=== PATIENT | male | born 1950 | race Caucasian/White ===

== ENCOUNTER 2016-04-28 11:57 | Emergency (ER) | payer MEDICARE, MEDICAID ==
[~2016-04-28] VITALS: Ht 172.7 cm; Wt 113.4 kg
[~2016-04-28 11:57] MED LIST: ALLO300T2 PO; ALLP300T PO; CETI10TA17 PO; CYCL10TA9 PO; HCT25T PO; HYDR1TAB PO; HYDR25TA4 PO; LACT20SO2 PO; MELO-195 PO; MELO15TA39 PO; METO100T PO; METO50TA2 PO; PANT40TA3 PO; PNT40TEC PO; PROP20TA5 PO; SPIR50TA2 PO; TERA5CAP10 PO; TERA5CAP3 PO
[2016-04-28 13:30] LABS: BASOPHILS % (AUTO) 0 % (0-10); EOSINOPHILS % (AUTO) 1 % (0-10); LYMPHOCYTES # (AUTO) 1.7 X 10^3 (1.0-4.0); LYMPHOCYTES % (AUTO) 45 % (12-44); MEAN CORPUSCULAR HEMOGLOBIN 37 PG (25-34); MEAN CORPUSCULAR HGB CONC 35 G/DL (32-36); MEAN CORPUSCULAR VOLUME 107 FL (80-99); MEAN PLATELET VOLUME 11.3 FL (7.4-10.4); MONOCYTES # (AUTO) 0.4 X 10^3 (0.0-1.0); MONOCYTES % (AUTO) 9 % (0-12); NEUTROPHILS # (AUTO) 1.7 X 10^3 (1.8-7.8); NEUTROPHILS % (AUTO) 45 % (42-75); PLATELET COUNT 45 10^3/uL (130-400); RED BLOOD COUNT 2.77 10^6/uL (4.35-5.85); RED CELL DISTRIBUTION WIDTH 16.4 % (10.0-14.5); WHITE BLOOD COUNT 3.8 10^3/uL (4.3-11.0)
[2016-04-28] MEDS ORDERED: RIFA550T PO (13:37)
[2016-04-28 13:48] LABS: ALBUMIN 2.8 G/DL (3.2-4.5); BILIRUBIN,TOTAL 3.7 MG/DL (0.1-1.0); CALCIUM 8.8 MG/DL (8.5-10.1); CREATININE SERUM 1.96 MG/DL (0.60-1.30); POTASSIUM 5.8 MMOL/L (3.6-5.0); TOTAL PROTEIN 6.2 G/DL (6.4-8.2)
[2016-04-28 14:03] LABS: KETONES,URINE NEGATIVE (NEGATIVE); LEUKOCYTE ESTERASE ,URINE 1+ (NEGATIVE); NITRITE,URINE NEGATIVE (NEGATIVE); PH,URINE 5 (5-9); PROTEIN,URINE NEGATIVE (NEGATIVE); UROBILINOGEN,URINE 8 MG/DL (NORMAL)
[2016-04-28 14:12] LABS: BILIRUBIN,URINE 2+ (NEGATIVE); WBC,URINE 0-2 /HPF
--- NOTE | 2016-04-28 14:12 | ED GI ---
General Chief Complaint: Abdominal/GI Problems Stated Complaint: NOT COHERENT, DIZZY Nursing Triage Note: Pt. advises right upper quadrant abdominal pain x 3 days that has become progressively worse. Pt. advised he has been feeling very dizzy and has been experiencing some confusion. Sepsis Screen: No Definite Risk History of Present Illness Time Seen By Provider: 13:10 Initial Comments Evaluation for right upper quadrant pain and dizziness. Patient's sister reports that she has noticed him to be confused, at times. His PCP is Aidan Benavides APRN at [facility] and Dr. Arriaga has been managing his Hepatits, he has failed treatments thus far and they are considering sending him to . Dr. Hernandez previously managed his hepatitis, but she is no longer coming to [facility]. Timing/Duration: 3-4 Days Severity/Quality: Moderate Location: RUQ Radiation: No Radiation Activities at Onset: None Modifying Factors: Improves With Lying down, Improves With Resting Associated Symptoms: No Back Pain, No Chest Pain, Fatigue HeartburnNo Nausea/ Vomiting, Other (Diarrhea 5-8 times/day and abdominal distention with ascites.) Allergies and Home Medications Allergies Coded Allergies: No Known Drug Allergies (Unverified , 09/21/12) Home Medications Allopurinol 300 Mg Tablet 300 MG PO DAILY (Reported) Cetirizine HCl 10 Mg Tablet 10 MG PO DAILY (Reported) Hydrochlorothiazide 25 Mg Tablet 12.5 MG PO DAILY (Reported) TAKES 1/2 OF A (25 MG) TABLET Lactulose 20 Gm/30 Ml Solution #1 20 GM PO QID Prescribed by: ASHLEY CARVER on 09/17/15 1401 Meloxicam 15 Mg Tablet 15 MG PO HS (Reported) Metoprolol Tartrate 50 Mg Tablet 50 MG PO HS (Reported) Metoprolol Tartrate 50 Mg Tablet 25 MG PO DAILY (Reported) TAKES 1/2 OF A (25 MG) TABLET Pantoprazole Sodium 40 Mg Tablet.dr 40 MG PO DAILY (Reported) Propranolol HCl 20 Mg Tablet 20 MG PO BID (Reported) Rifaximin 550 Mg Tablet 550 MG PO BID (Reported) Spironolactone 50 Mg Tablet 100 MG PO DAILY (Reported) TAKES 2 (50 MG) TABLETS Terazosin HCl 5 Mg Capsule 5 MG PO DAILY (Reported) Review of Systems Constitutional: see HPI malaise weakness EENTM: No Symptoms Reported See HPI Respiratory: No Symptoms Reported See HPI Past Ovadgqf-Ddugww-Wofpgd Hx Patient Social History Recent Foreign Travel: No Contact w/Someone Who Travel: No Recent Infectious Disease Expo: No Recent Hopitalizations: No Seasonal Allergies Seasonal Allergies: Yes Surgeries HX Surgeries: Yes (hernia repair) Surgeries: Gallbladder Respiratory Hx Respiratory Disorders: No Cardiovascular Hx Cardiac Disorders: Yes Cardiac Disorders: Chronic Edema/Swelling, Hypertension Neurological Hx Neurological Disorders: No Genitourinary Hx Genitourinary Disorders: Yes Genitourinary Disorders: Benign Prostatic Hyperpl Gastrointestinal Hx Gastrointestinal Disorders: Yes (HEPATITIS C--NO TREATMENT) Gastrointestinal Disorders: Ulcer Musculoskeletal Hx Musculoskeletal Disorders: Yes (ARTHRITIS) Musculoskeletal Disorders: Arthritis, Gout Endocrine Hx Endocrine Disorders: No HEENT HX ENT Disorders: No Cancer Hx Cancer: No Psychosocial Hx Psychiatric Problems: No Integumentary HX Skin/Integumentary Disorder: No Blood Transfusions Hx Blood Disorders: No Physical Exam Vital Signs VS - Last 72 Hours, by Label 04/28/16 04/28/16 13:29 16:10 Temp 98.9 Pulse 55 60 Resp 16 14 B/P 110/63 Pulse Ox 98 98 O2 Delivery Room Air Room Air Capillary Refill : Less Than 3 Seconds General Appearance: WD/WN no apparent distress HEENT: PERRL/EOMI normal ENT inspection TMs normal pharynx normal Neck: non-tender full range of motion supple normal inspection Respiratory: chest non-tender normal breath sounds no respiratory distress no accessory muscle use Cardiovascular: normal peripheral pulses regular rate, rhythm no edema no murmur Peripheral Pulses: 2+ Dorsalis Pedis (R), 2+ Left Dors-Pedis (L), 2+ Radial Pulses (R), 2+ Radial Pulses (L) Gastrointestinal: normal bowel sounds soft distended (soft)No rebound, tenderness (RUQ) other Extremities: normal range of motion non-tender normal inspection no pedal edema no calf tenderness normal capillary refill Neurologic/Psychiatric: no motor/sensory deficits alert normal mood/affect oriented x 3 Skin: warm/dry jaundice (mild) Lymphatic: no adenopathy Progress/Results/Core Measures Results/Orders Lab Results Laboratory Tests Test 04/28/16 13:17 04/28/16 13:55 Range/Units Alanine Aminotransferase (ALT/SGPT) 91 H 0-55 U/L Albumin 2.8 L 3.2-4.5 G/DL Alkaline Phosphatase 141 H 40-136 U/L Ammonia 65 H 11-32 UMOL/L Anion Gap 3 L 5-14 MMOL/L Aspartate Amino Transf (AST/SGOT) 165 H 5-34 U/L BUN/Creatinine Ratio 21 Basophils # (Auto) 0.0 0.0-0.1 10^3/uL Basophils (%) (Auto) 0 0-10 % Blood Urea Nitrogen 41 H 7-18 MG/DL Calcium Level 8.8 8.5-10.1 MG/DL Carbon Dioxide Level 18 L 21-32 MMOL/L Chloride Level 119 H 98-107 MMOL/L Creatinine 1.96 H 0.60-1.30 MG/DL Eosinophils # (Auto) 0.0 0.0-0.3 10^3/uL Eosinophils (%) (Auto) 1 0-10 % Estimat Glomerular Filtration Rate 34 Glucose Level 137 H 70-105 MG/DL Hematocrit 30 L 40-54 % Hemoglobin 10.3 L 13.3-17.7 G/DL Lymphocytes # (Auto) 1.7 1.0-4.0 X 10^3 Lymphocytes (%) (Auto) 45 H 12-44 % Mean Corpuscular Hemoglobin 37 H 25-34 PG Mean Corpuscular Hemoglobin Concent 35 32-36 G/DL Mean Corpuscular Volume 107 H 80-99 FL Mean Platelet Volume 11.3 H 7.4-10.4 FL Monocytes # (Auto) 0.4 0.0-1.0 X 10^3 Monocytes (%) (Auto) 9 0-12 % Neutrophils # (Auto) 1.7 L 1.8-7.8 X 10^3 Neutrophils (%) (Auto) 45 42-75 % Platelet Count 45 L 130-400 10^3/uL Potassium Level 5.8 H 3.6-5.0 MMOL/L Red Blood Count 2.77 L 4.35-5.85 10^6/uL Red Cell Distribution Width 16.4 H 10.0-14.5 % Sodium Level 140 135-145 MMOL/L Total Bilirubin 3.7 H 0.1-1.0 MG/DL Total Protein 6.2 L 6.4-8.2 G/DL White Blood Count 3.8 L 4.3-11.0 10^3/uL Urine Bacteria TRACE /HPF Urine Bilirubin 2+ H NEGATIVE Urine Casts PRESENT /LPF Urine Clarity CLEAR Urine Color YELLOW Urine Crystals NONE /LPF Urine Culture Indicated NO Urine Glucose (UA) NEGATIVE NEGATIVE Urine Hyaline Casts 10-25 H /LPF Urine Ketones NEGATIVE NEGATIVE Urine Leukocyte Esterase 1+ H NEGATIVE Urine Mucus SMALL H /LPF Urine Nitrite NEGATIVE NEGATIVE Urine Protein NEGATIVE NEGATIVE Urine RBC NONE /HPF Urine RBC (Auto) NEGATIVE NEGATIVE Urine Specific [place] 1.020 1.016-1.022 Urine Squamous Epithelial Cells 2-5 /HPF Urine Urobilinogen 8 H NORMAL MG/DL Urine WBC 0-2 /HPF Urine pH 5 5-9 My Orders Orders-ALFRED CANTOR [employer] Ammonia (04/28/16 13:20) Cbc With Automated Diff (04/28/16 13:20) Comprehensive Metabolic Panel (04/28/16 13:20) Ua Culture If Indicated (04/28/16 13:20) Ct Abdomen/Pelvis Wo (04/28/16 14:19) Saline Lock/Iv-Start (04/28/16 14:19) Ns Iv 500 Ml (Sodium Chloride 0.9%) (04/28/16 14:19) Ns Iv 1000 Ml (Sodium Chloride 0.9%) (04/28/16 14:16) Sodium Polystyrene (Bulk Btl) (Kayexalat (04/28/16 15:45) Medications Given in ED Current Medications Medications Dose Ordered Sig/Lucila Route Start Time Stop Time Status Last Admin Dose Admin Sodium Polystyrene Sulfonate 15 gm ONCE ONCE PO 04/28/16 15:45 04/28/16 15:52 DC 04/28/16 16:07 15 GM Sodium Chloride 500 ml @ 0 mls/hr Q0M ONCE IV 04/28/16 14:19 04/28/16 14:23 DC 04/28/16 14:25 0 MLS/HR Vital Signs/I&O Vital Sign - Last 12Hours 04/28/16 04/28/16 13:29 16:10 Temp 98.9 Pulse 55 60 Resp 16 14 B/P 110/63 Pulse Ox 98 98 O2 Delivery Room Air Room Air Blood Pressure Mean: 79 Progress Note : Progress Note 1500 Dr. Arri[address] spoke with Dr. Melchor by phone about patient, updated us on his past tx for hepatitis and their desire to refer him to transfer him to [facility] if he needs admission. [address], Labs and assessment with Dr. Melchor, agreed with plan of care at this time. Talked to Patient and sister in depth, recommended referral to [facility] for further treatment, offered to arrange for transfer today. His sister and other family are not able to go with him today and they have concerns with him going alone. They would prefer to follow up with Aidan Benavides APRN tomorrow and have referral made for later this week. They understand his status is critical, but this is probably his baseline for some time. If his conditions worsens, they will return to ER. 1550 Spoke with [facility] (Alivia Wolf RN and Aidan Benavides APRN) to inform patient would like referral to on outpatient basis. The patient has appointment tomorrow morning, all labs from today and copy of CT on CD, given to patient. ECG EKG : EKG Time: 13:41 Rate: 55 Rhythm: Normal Sinus (With borderline left axis deviation) Intervals: Normal, MS (196), QRS (86), QT (456) Intervals P axis 7; QRS -27; T 50 ECG Comparisson: No Previous ECG Available ECG Impression: Normal Comment Reviewed with Dr. Melchor, agreed with interpretation. Diagnostic Imaging Diagonstic Imaging: CT Plain Films/CT/US/NM/MRI: abdomen, pelvis Comments NAME: CARMITA APONTE [facility] REC#: [id number] PT STATUS: REG ER : 1950 PHYSICIAN: ALFRED CANTOR ADMIT DATE: 04/28/16/ER Draft Date of Exam:04/28/16 CT ABDOMEN/PELVIS WO PROCEDURE: CT abdomen and pelvis without contrast. TECHNIQUE: Multiple contiguous axial images were obtained through the abdomen and pelvis without the use of intravenous contrast. INDICATION: Abdominal pain. Hepatitis C. FINDINGS: The lung bases appear clear. The liver demonstrates enlargement of the left hepatic lobe and caudate lobe with subtle nodularity of its surface compatible with cirrhosis. The spleen is 16.2 x 7.3 x 14.7 cm, mildly enlarged. The adrenals and the pancreas appear unremarkable. There is fatty stranding in the retroperitoneum and in the abdominal fat around the gastrohepatic ligament and adjacent to the stomach. The stomach has associated gastric wall thickening. Also fatty stranding extending around the ye hepatis is seen. Etiology is uncertain and could be related to hepatitis and cirrhosis. The kidneys have no hydronephrosis. There are no kidney stones. There is a calcification in the left side of the pelvis appears to be related to a phlebolith with no definite ureteric stone or bladder stone seen. There is diverticulosis with no evidence of diverticulitis. No significant free fluid or fluid collection in the abdomen or pelvis seen. The abdominal aorta is normal in caliber. There is suggestion of prior ventral hernia repair with a mesh above the level of the umbilicus. There is a small umbilical hernia with a portion of the adjacent nonobstructed small bowel loops projecting into the hernia. The osseous structures appear grossly unremarkable with some degenerative changes in the lower thoracic spine seen. IMPRESSION: 1. Liver findings are suggestive of cirrhosis. There is also mild splenomegaly. No ascites. 2. There is nonspecific fatty stranding seen in the upper abdomen as described. This is perhaps secondary to tissue edema from liver disease and portal hypertension or may relate to an inflammatory process. Correlate clinically. Dictated on workstation # [id number] Dict: 04/28/16 1441 Trans: 04/28/16 1459 [facility] [id number] Interpreted by: ADRIANO WANG MD Electronically signed by: Reviewed: Reviewed by Me Departure Impression Impression: Primary Impression: Cirrhosis of liver Qualified Code: K70.31 - Alcoholic cirrhosis of liver with ascites Additional Impression: Hepatitis C Qualified Code: B18.2 - Chronic viral hepatitis C Disposition: 01 HOME, SELF-CARE Condition: Stable Departure-Patient Inst. Decision time for Depature: 15:30 Referrals: AIDAN BENAVIDES (PCP/Family) Primary Care Physician Patient Instructions: Cirrhosis (DC), Hepatitis C (DC) Add. Discharge Instructions: All discharge instructions reviewed with patient and/or family. Voiced understanding. Follow Up Aidan Benavides APRN 04/29/16 at 8:40 am, please go to appointment 10 min early. Return to ER for worsening symptoms, fever, difficulty breathing or concerns. Hold Spironolactone until follow up. Copy Copies To 1: NACHO ARRIAGA MD, AMY ARNP Apr 28, 2016 14:12
[2016-04-28] MEDS ORDERED: NS IV 1000 ML 0 ML ONE (14:16)
[2016-04-28] MEDS ORDERED: NS IV 500 ML 500 ML IV ONE (14:19)
--- NOTE | 2016-04-28 15:00 | Diagnostic Imaging Report ---
PROCEDURE: CT abdomen and pelvis without contrast. TECHNIQUE: Multiple contiguous axial images were obtained through the abdomen and pelvis without the use of intravenous contrast. INDICATION: Abdominal pain. Hepatitis C. FINDINGS: The lung bases appear clear. The liver demonstrates enlargement of the left hepatic lobe and caudate lobe with subtle nodularity of its surface compatible with cirrhosis. The spleen is 16.2 x 7.3 x 14.7 cm, mildly enlarged. The adrenals and the pancreas appear unremarkable. There is fatty stranding in the retroperitoneum and in the abdominal fat around the gastrohepatic ligament and adjacent to the stomach. The stomach has associated gastric wall thickening. Also fatty stranding extending around the ye hepatis is seen. Etiology is uncertain and could be related to hepatitis and cirrhosis. The kidneys have no hydronephrosis. There are no kidney stones. There is a calcification in the left side of the pelvis appears to be related to a phlebolith with no definite ureteric stone or bladder stone seen. There is diverticulosis with no evidence of diverticulitis. No significant free fluid or fluid collection in the abdomen or pelvis seen. The abdominal aorta is normal in caliber. There is suggestion of prior ventral hernia repair with a mesh above the level of the umbilicus. There is a small umbilical hernia with a portion of the adjacent nonobstructed small bowel loops projecting into the hernia. The osseous structures appear grossly unremarkable with some degenerative changes in the lower thoracic spine seen. IMPRESSION: 1. Liver findings are suggestive of cirrhosis. There is also mild splenomegaly. No ascites. 2. There is nonspecific fatty stranding seen in the upper abdomen as described. This is perhaps secondary to tissue edema from liver disease and portal hypertension or may relate to an inflammatory process. Correlate clinically. Dictated by: Dictated on workstation # [id number]
[2016-04-28] MEDS ORDERED: SOD POLYSTYRENE 30 GM/120 ML (KAYEXALATE) BULK BOTTLE PO ONE (15:45)
[2016-04-28 16:10] VITALS: BP 145/76
== END 2016-04-28 16:15 | disposition home or self-care (01) ==
LOC: EDUNIT# 11:57 → ER 11:59
DX: K74.60 Unspecified cirrhosis of liver (principal); B18.2 Chronic viral hepatitis C; N40.0 Benign prostatic hyperplasia without lower urinary tract symptoms; R41.0 Disorientation, unspecified; R42 Dizziness and giddiness; I10 Essential (primary) hypertension; Z79.899 Other long term (current) drug therapy
CPT/HCPCS: 36415; 74176; 80053; 81000; 82140; 85025; 93005; 96360

== ENCOUNTER 2016-04-30 12:27 | Inpatient (IN) | payer MEDICARE, MEDICAID ==
[~2016-04-30] VITALS: Ht 172.7 cm; Wt 120.7 kg
[~2016-04-30 12:27] MED LIST changes: +RIFA550T PO
[2016-04-30 12:51] LABS: BASOPHILS % (AUTO) 0 % (0-10); EOSINOPHILS % (AUTO) 1 % (0-10); LYMPHOCYTES # (AUTO) 1.3 X 10^3 (1.0-4.0); LYMPHOCYTES % (AUTO) 32 % (12-44); MEAN CORPUSCULAR HEMOGLOBIN 37 PG (25-34); MEAN CORPUSCULAR HGB CONC 34 G/DL (32-36); MEAN CORPUSCULAR VOLUME 107 FL (80-99); MEAN PLATELET VOLUME 11.5 FL (7.4-10.4); MONOCYTES # (AUTO) 0.3 X 10^3 (0.0-1.0); MONOCYTES % (AUTO) 8 % (0-12); NEUTROPHILS # (AUTO) 2.5 X 10^3 (1.8-7.8); NEUTROPHILS % (AUTO) 60 % (42-75); PLATELET COUNT 41 10^3/uL (130-400); RED BLOOD COUNT 2.87 10^6/uL (4.35-5.85); RED CELL DISTRIBUTION WIDTH 16.1 % (10.0-14.5); WHITE BLOOD COUNT 4.2 10^3/uL (4.3-11.0)
--- NOTE | 2016-04-30 12:53 | ED GI ---
General Chief Complaint: Abdominal/GI Problems Stated Complaint: ABD PAIN Nursing Triage Note: PT TO ED 7 PER EMS FOR C/O ABD PAIN. PT SEEN IN THIS ED X3 DAYS AGO FOR SAME C/O BUT DENIES IMPROVEMENT Sepsis Screen: No Definite Risk (PREMA LEMOS MD) History of Present Illness Time Seen By Provider: 12:48 Initial Comments The patient is a 65-year-old white male who was here on 04/28. He returns today with the same complaint which is to say abdominal pain, general lack of vigor and I ain't gotten no better. The patient is known to have chronic liver disease. He has not very sophisticated about his knowledge of the subject. On 04/28 and his sister reported that his thinking was rather foggy. He is apparently been seen previously by Dr. Emani Hernandez in the [facility]. He takes lactulose and spironolactone. He reports that there is always some swelling. He also reports that he has poor coordination and his hands shake. Severity/Quality: Moderate Location: Generalized Abdomen Radiation: No Radiation Associated Symptoms: Fatigue Heartburn Swelling/Mass in Abdomen (PREMA LEMOS MD) Initial Comments The sister reports that patient did not take his medicines this morning because she could not get him to comprehend what they were talking about. That has cleared somewhat today. Patient admits that he did not take his medicines because he could not think well. Denies nausea or vomiting. Reports understanding of the importance of his meds. Timing/Duration: 4-6 Hours Associated Symptoms: No Chest Pain, No Fever/Chills, No Nausea/Vomiting, Shortness of Air Weakness (LUIS HEATH MD) Allergies and Home Medications Allergies Coded Allergies: No Known Drug Allergies (Unverified , 09/21/12) Home Medications Allopurinol 300 Mg Tablet 300 MG PO DAILY (Reported) Cetirizine HCl 10 Mg Tablet 10 MG PO DAILY (Reported) Hydrochlorothiazide 25 Mg Tablet 12.5 MG PO DAILY (Reported) TAKES 1/2 OF A (25 MG) TABLET Lactulose 20 Gm/30 Ml Solution #1 20 GM PO QID Prescribed by: ASHLEY CARVER on 09/17/15 1401 Meloxicam 15 Mg Tablet 15 MG PO HS (Reported) Metoprolol Tartrate 50 Mg Tablet 50 MG PO HS (Reported) Metoprolol Tartrate 50 Mg Tablet 25 MG PO DAILY (Reported) TAKES 1/2 OF A (25 MG) TABLET Pantoprazole Sodium 40 Mg Tablet.dr 40 MG PO DAILY (Reported) Propranolol HCl 20 Mg Tablet 20 MG PO BID (Reported) Rifaximin 550 Mg Tablet 550 MG PO BID (Reported) Spironolactone 50 Mg Tablet 100 MG PO DAILY (Reported) TAKES 2 (50 MG) TABLETS Terazosin HCl 5 Mg Capsule 5 MG PO DAILY (Reported) Review of Systems Constitutional: see HPI EENTM: No Symptoms Reported Respiratory: SOA With Exertion Cardiovascular: No Symptoms Reported Gastrointestinal: Abdomen Distended Abdominal Pain Nausea Genitourinary: No Symptoms Reported Musculoskeletal: muscle weakness Skin: no symptoms reported Psychiatric/Neurological: Depressed Tremors Weakness Endocrine: No Symptoms Reported Hematologic/Lymphatic: Easy Bruising (PREMA LEMOS MD) All Other Systems Reviewed Negative Unless Noted: Yes (LUIS HEATH MD) Past Inbubkf-Lxvylz-Baguqi Hx Patient Social History Alcohol Use: Denies Use Recreational Drug Use: Yes (CHEWS TOBACCO) Smoking Status: Never a Smoker Recent Foreign Travel: No Contact w/Someone Who Travel: No Recent Infectious Disease Expo: No Recent Hopitalizations: No Physical Abuse Screen: No Sexual Abuse: No (PREMA LEMOS MD) Seasonal Allergies Seasonal Allergies: Yes (PREMA LEMOS MD) Surgeries HX Surgeries: Yes (hernia repair) Surgeries: Gallbladder (PREMA LEMOS MD) Respiratory Hx Respiratory Disorders: No (PREMA LEMOS MD) Cardiovascular Hx Cardiac Disorders: Yes Cardiac Disorders: Chronic Edema/Swelling, Hypertension (PREMA LEMOS MD) Neurological Hx Neurological Disorders: No (PREMA LEMOS MD) Genitourinary Hx Genitourinary Disorders: Yes Genitourinary Disorders: Benign Prostatic Hyperpl (PREMA LEMOS MD) Gastrointestinal Hx Gastrointestinal Disorders: Yes (HEPATITIS C--NO TREATMENT) Gastrointestinal Disorders: Ulcer (PREMA LEMOS MD) Musculoskeletal Hx Musculoskeletal Disorders: Yes (ARTHRITIS) Musculoskeletal Disorders: Arthritis, Gout (PREMA LEMOS MD) Endocrine Hx Endocrine Disorders: No (PREMA LEMOS MD) HEENT HX ENT Disorders: No (PREMA LEMOS MD) Cancer Hx Cancer: No (PREMA LEMOS MD) Psychosocial Hx Psychiatric Problems: No (PREMA LEMOS MD) Integumentary HX Skin/Integumentary Disorder: No (PREMA LEMOS MD) Blood Transfusions Hx Blood Disorders: No (PREMA LEMOS MD) Reviewed Nursing Assessment Reviewed/Agree w Nursing PMH: Yes (LUIS HEATH MD) Family Medical History Significant Family History: No Pertinent Family Hx (LUIS HEATH MD) Physical Exam Vital Signs VS - Last 72 Hours, by Label 04/30/16 12:28 Temp 96.9 Pulse 77 Resp 16 B/P 174/90 Pulse Ox 99 O2 Delivery Room Air (LUIS HEATH MD) Vital Signs Capillary Refill : Less Than 3 Seconds (PREMA LEMOS MD) General Appearance: mild distress HEENT: normal ENT inspection Neck: full range of motion Respiratory: chest non-tender lungs clear normal breath sounds no respiratory distress no accessory muscle use Cardiovascular: normal peripheral pulses regular rate, rhythm no edema no gallop no JVD no murmur Gastrointestinal: tenderness Back: normal inspection Neurologic/Psychiatric: airbrush painter II-XII nml as tested no motor/sensory deficits alert normal mood/affect oriented x 3 Skin: normal color warm/dry Lymphatic: no adenopathy (PREMA LEMOS MD) General Appearance: obese Peripheral Pulses: 2+ Dorsalis Pedis (R), 2+ Left Dors-Pedis (L), 2+ Radial Pulses (R), 2+ Radial Pulses (L) Gastrointestinal: soft Extremities: non-tender normal inspection Back: no CVA tenderness no vertebral tenderness (LUIS HEATH MD) Progress/Results/Core Measures Results/Orders Lab Results Laboratory Tests Test 04/30/16 12:45 Range/Units Alanine Aminotransferase (ALT/SGPT) 93 H 0-55 U/L Albumin 2.8 L 3.2-4.5 G/DL Alkaline Phosphatase 151 H 40-136 U/L Ammonia 73 H 11-32 UMOL/L Anion Gap 6 5-14 MMOL/L Aspartate Amino Transf (AST/SGOT) 170 H 5-34 U/L BUN/Creatinine Ratio 20 Basophils # (Auto) 0.0 0.0-0.1 10^3/uL Basophils (%) (Auto) 0 0-10 % Blood Urea Nitrogen 36 H 7-18 MG/DL Calcium Level 8.7 8.5-10.1 MG/DL Carbon Dioxide Level 17 L 21-32 MMOL/L Chloride Level 117 H 98-107 MMOL/L Creatinine 1.79 H 0.60-1.30 MG/DL Eosinophils # (Auto) 0.0 0.0-0.3 10^3/uL Eosinophils (%) (Auto) 1 0-10 % Estimat Glomerular Filtration Rate 38 Glucose Level 134 H 70-105 MG/DL Hematocrit 31 L 40-54 % Hemoglobin 10.5 L 13.3-17.7 G/DL Lymphocytes # (Auto) 1.3 1.0-4.0 X 10^3 Lymphocytes (%) (Auto) 32 12-44 % Mean Corpuscular Hemoglobin 37 H 25-34 PG Mean Corpuscular Hemoglobin Concent 34 32-36 G/DL Mean Corpuscular Volume 107 H 80-99 FL Mean Platelet Volume 11.5 H 7.4-10.4 FL Monocytes # (Auto) 0.3 0.0-1.0 X 10^3 Monocytes (%) (Auto) 8 0-12 % Neutrophils # (Auto) 2.5 1.8-7.8 X 10^3 Neutrophils (%) (Auto) 60 42-75 % Platelet Count 41 L 130-400 10^3/uL Potassium Level 6.4 H 3.6-5.0 MMOL/L Red Blood Count 2.87 L 4.35-5.85 10^6/uL Red Cell Distribution Width 16.1 H 10.0-14.5 % Sodium Level 140 135-145 MMOL/L Total Bilirubin 3.8 H 0.1-1.0 MG/DL Total Protein 6.3 L 6.4-8.2 G/DL White Blood Count 4.2 L 4.3-11.0 10^3/uL (LUIS HEATH MD) My Orders Orders-LUIS HEATH MD Ekg Tracing (04/30/16 13:44) Furosemide Injection (Lasix Injection) (04/30/16 13:44) Sodium Polystyrene Sulfonate (Kayexalate (04/30/16 13:45) (LUIS HEATH MD) Vital Signs/I&O Vital Sign - Last 12Hours 04/30/16 12:28 Temp 96.9 Pulse 77 Resp 16 B/P 174/90 Pulse Ox 99 O2 Delivery Room Air (LUIS HEATH MD) Blood Pressure Mean: 118 Progress Note : Progress Note I assumed care of the patient from Dr. LEMOS at 1330: Labs reviewed. Patient reexamined. Patient noted to be hyperkalemic. EKG ordered. Lasix 40 mg IV and Kayexalate 15 g by mouth ordered. 1345: I did discuss the case with Dr. Thurston. She accepts patient for admission, inpatient status. Patient and family agree with plan. 1355: Dr. Thurston in ER evaluating patient. (LUIS HEATH MD) ECG Initial ECG Impression Date: Apr 30, 2016 Initial ECG Impression Time: 13:43 Initial ECG Rate: 72 Initial ECG Rhythm: Normal Sinus Comment Sinus rhythm with left axis deviation. No evidence of ST elevation PR. Similar to previous of 09/27/2015. Interpreted by me. (LUIS HEATH MD) Departure Communication Time/Spoke to Admitting Phy: 13:50 (LUIS HEATH MD) Impression Impression: Primary Impression: Hyperkalemia Additional Impressions: Hepatic encephalopathy Hepatitis C Qualified Code: B18.2 - Chronic viral hepatitis C Disposition: ADMITTED INPATIENT Condition: Stable Decision to Admit Reason: Admit from ER (General) Decision to Admit/Date: Apr 30, 2016 Time/Decision to Admit Time: 13:50 (LUIS HEATH MD) Departure-Patient Inst. Referrals: NO,LOCAL PHYSICIAN (PCP/Family) Primary Care Physician PREMA LEMOS MD Apr 30, 2016 12:53 LUIS HEATH MD Apr 30, 2016 13:59
[2016-04-30 13:08] LABS: ALBUMIN 2.8 G/DL (3.2-4.5); CALCIUM 8.7 MG/DL (8.5-10.1); CREATININE SERUM 1.79 MG/DL (0.60-1.30); POTASSIUM 6.4 MMOL/L (3.6-5.0); TOTAL PROTEIN 6.3 G/DL (6.4-8.2)
[2016-04-30 13:15] LABS: BILIRUBIN,TOTAL 3.8 MG/DL (0.1-1.0)
[2016-04-30] MEDS ORDERED: FUROSEMIDE 40 MG/4 ML INJ (LASIX) IV STA (13:44)
[2016-04-30] MEDS ORDERED: SOD POLYSTERENE 15 GM/60 ML (KAYEXALATE) UNIT DOSE PO ONE (13:45)
--- NOTE | 2016-04-30 15:30 | History & Physicial (CHS) ---
HPI History of Present Illness: 65 yo male with history of cirrhosis related to history of alcohol use and hepatitis C presents to ER for second time this week due to weakness, not feeling well. His sister is present and provides much of the history. She sets up his medications weekly and reports he typically takes all of his prescribed medications, but this morning he did not take his medications and in spite of multiple reminders and urging he was so lethargic she could not get him to take his medication. He has been treated for hepatitis C without success and has been referred to Hepatology in the last few days and is waiting to hear back about an appointment. He denies fever, abdominal pain. He does admit diarrhea but states he essentially always has with his lactulose. He denies ascites in the past. Source: patient, family (sister Deya) Date seen by provider: Apr 30, 2016 Time seen by provider: 14:00 Attending Physician Heather Thurston MD [facility] Date of Admission Apr 30, 2016 at 14:00 Home Medications Home Medications Reviewed patient Home Medication Reconciliation Form Allergies Coded Allergies: No Known Drug Allergies (Unverified , 04/30/16) [id number] Hx Patient Social History Alcohol Use: Past History Recreational Drug Use: Yes (reported last use 1970s) Smoking Status: Never a Smoker (chews tobacco) Recent Foreign Travel: No Contact w/other who traveled: No Recent Hopitalizations: No Recent Infectious Disease Expo: No Physical Abuse Screen: No Sexual Abuse: No Past Medical History PMHx: DMII Alcoholic cirrhosis Chronic hepatitis C Hypertension GI bleed (gastric ulcer) PSurgHx: Hernia repair Gastric ulcer repair Cholecystetomy Appendectomy Family Medical History Significant Family History: No Pertinent Family Hx Review of Systems ([facility]C) Constitutional: No fever Respiratory: No cough, No short of breath Cardiovascular: No chest pain Gastrointestinal: No abdominal pain, No constipation, diarrheaNo nausea, No vomiting Genitourinary: decreased output Skin: No rash Psychiatric/Neurological: See HPI Reviewed Test Results Reviewed Test Results Lab Laboratory Tests Test 04/30/16 12:45 Range/Units Alanine Aminotransferase (ALT/SGPT) 93 H 0-55 U/L Albumin 2.8 L 3.2-4.5 G/DL Alkaline Phosphatase 151 H 40-136 U/L Ammonia 73 H 11-32 UMOL/L Anion Gap 6 5-14 MMOL/L Aspartate Amino Transf (AST/SGOT) 170 H 5-34 U/L BUN/Creatinine Ratio 20 Basophils # (Auto) 0.0 0.0-0.1 10^3/uL Basophils (%) (Auto) 0 0-10 % Blood Urea Nitrogen 36 H 7-18 MG/DL Calcium Level 8.7 8.5-10.1 MG/DL Carbon Dioxide Level 17 L 21-32 MMOL/L Chloride Level 117 H 98-107 MMOL/L Creatinine 1.79 H 0.60-1.30 MG/DL Eosinophils # (Auto) 0.0 0.0-0.3 10^3/uL Eosinophils (%) (Auto) 1 0-10 % Estimat Glomerular Filtration Rate 38 Glucose Level 134 H 70-105 MG/DL Hematocrit 31 L 40-54 % Hemoglobin 10.5 L 13.3-17.7 G/DL Lymphocytes # (Auto) 1.3 1.0-4.0 X 10^3 Lymphocytes (%) (Auto) 32 12-44 % Mean Corpuscular Hemoglobin 37 H 25-34 PG Mean Corpuscular Hemoglobin Concent 34 32-36 G/DL Mean Corpuscular Volume 107 H 80-99 FL Mean Platelet Volume 11.5 H 7.4-10.4 FL Monocytes # (Auto) 0.3 0.0-1.0 X 10^3 Monocytes (%) (Auto) 8 0-12 % Neutrophils # (Auto) 2.5 1.8-7.8 X 10^3 Neutrophils (%) (Auto) 60 42-75 % Platelet Count 41 L 130-400 10^3/uL Potassium Level 6.4 H 3.6-5.0 MMOL/L Red Blood Count 2.87 L 4.35-5.85 10^6/uL Red Cell Distribution Width 16.1 H 10.0-14.5 % Sodium Level 140 135-145 MMOL/L Total Bilirubin 3.8 H 0.1-1.0 MG/DL Total Protein 6.3 L 6.4-8.2 G/DL White Blood Count 4.2 L 4.3-11.0 10^3/uL Physical Exam-([facility]C) Physical Exam Vital Signs VS - Last 72 Hours, by Label 04/30/16 12:28 Temp 96.9 Pulse 77 Resp 16 B/P 174/90 Pulse Ox 99 O2 Delivery Room Air Capillary Refill : Less Than 3 Seconds General Appearance: no apparent distress Respiratory: lungs clear normal breath sounds Cardiovascular: regular rate, rhythm no murmur Gastrointestinal: normal bowel soundsNo guarding, No rebound, tenderness ( diffuse mild) other (distended, possible fluid wave difficult to determine due to body habitus) Neurologic/Psychiatric: alert other (mild to moderate asterixis) Skin: warm/dry Assessment/Plan Assessment/Plan Admission Dx 1. Hepatic encephalopathy 2. Hyperkalemia 3. Chronic renal insufficiency 4. Alcoholic cirrhosis/chronic hepatitis C 5. Pancytopenia 6. HTN 7. DMII 8. Gout Plan 1. Hepatic encephalopathy -Will monitor with kayexalate given for hyperkalemia, resume lactulose when kayexalate complete, resume home rifaximin -US to check for ascites (CT abdomen on 04/28 with no ascites, but exam with possible ascites) and if present paracentesis to rule out SBP 2. Hyperkalemia- kayexalate, lasix; no EKG changes, monitor on telemetry -Likely due to spironolactone use and chronic kidney insufficiency with poor fluid intake recently 3. Chronic renal insufficiency- decreased GFR since at least 09/2015 -Hold home meloxicam -Renally dose medications 4. Alcoholic cirrhosis/chronic hepatitis C- with worsening encephalopathy -Resume home propranolol -Has been referred to Hepatology, not yet scheduled 5. Pancytopenia- likely secondary to above, monitor 6. HTN- resume home medications 7. DMII- diet controlled -ADA diet 8. Gout- hold allopurinol as it can be associated with pancytopenia and elevated liver testing DVT ppx- SCDs, no enoxaparin due to low platelets Diagnosis/Problems: Copy Copies To 1: [facility]ERVE Cade BETHANY N MD Apr 30, 2016 15:30
[2016-04-30 15:35] VITALS: BP 146/74
[2016-04-30] MEDS ORDERED: LACT10SO PO (15:44)
[2016-04-30] MEDS ORDERED: SPIR100T2 PO (15:44)
[2016-04-30] MEDS ORDERED: ONDANSETRON 4 MG/2 ML (SDV) Z0FRAN IV PRN (15:45)
[2016-04-30] MEDS ORDERED: CATHETER FLUSH 10 ML SYR IV PRN (15:45)
--- NOTE | 2016-04-30 16:08 | Diagnostic Imaging Report ---
PROCEDURE: US Abdomen, limited. TECHNIQUE: Multiple realtime grayscale images were obtained over the abdomen in various projections. INDICATION: Check for ascites. FINDINGS: No significant fluid is seen in the four quadrants. IMPRESSION: No evidence of ascites. Dictated by: Dictated on workstation # [id number]
[2016-04-30] MEDS: NS IV 1000 ML 1,000 ML IV SCH (16:20)
[2016-04-30] MEDS ORDERED: RT-ALBUTEROL SULF 2.5 MG/3 ML PRE-MIX VIAL INH PRN (16:30)
[2016-04-30 17:45] LABS: CALCIUM 8.6 MG/DL (8.5-10.1); CREATININE SERUM 1.87 MG/DL (0.60-1.30)
[2016-04-30] MEDS: SOD POLYSTERENE 15 GM/60 ML (KAYEXALATE) UNIT DOSE PO SCH (18:04)
[2016-04-30 19:50] VITALS: BP 126/73
[2016-04-30] MEDS: meTOprolol TARTRATE 50 MG (LOPRESSOR) TAB PO SCH (20:19)
[2016-04-30] MEDS: RIFAXIMIN 550 MG TABLET (XIFAXAN) PO SCH (20:19)
[2016-04-30] MEDS: PROPRANOLOL 20 MG (INDERAL) TABLET PO SCH (20:19)
[2016-05-01] VITALS: BP 130/83
[2016-05-01] MEDS: SOD POLYSTERENE 15 GM/60 ML (KAYEXALATE) UNIT DOSE PO SCH ×2 (00:02→05:21)
[2016-05-01 04:00] VITALS: BP 117/71
[2016-05-01] MEDS: PANTOPRAZOLE 40 MG (PROTONIX) TAB PO SCH (05:23)
[2016-05-01 05:44] LABS: BASOPHILS % (AUTO) 0 % (0-10); EOSINOPHILS % (AUTO) 1 % (0-10); LYMPHOCYTES # (AUTO) 2.1 X 10^3 (1.0-4.0); LYMPHOCYTES % (AUTO) 47 % (12-44); MEAN CORPUSCULAR HEMOGLOBIN 37 PG (25-34); MEAN CORPUSCULAR HGB CONC 35 G/DL (32-36); MEAN CORPUSCULAR VOLUME 107 FL (80-99); MEAN PLATELET VOLUME 12.2 FL (7.4-10.4); MONOCYTES # (AUTO) 0.3 X 10^3 (0.0-1.0); MONOCYTES % (AUTO) 7 % (0-12); NEUTROPHILS % (AUTO) 45 % (42-75); RED BLOOD COUNT 2.62 10^6/uL (4.35-5.85); RED CELL DISTRIBUTION WIDTH 16.2 % (10.0-14.5); WHITE BLOOD COUNT 4.5 10^3/uL (4.3-11.0)
[2016-05-01 05:47] LABS: PLATELET COUNT 40 10^3/uL (130-400)
[2016-05-01 06:03] LABS: ALBUMIN 2.5 G/DL (3.2-4.5); BILIRUBIN,TOTAL 3.2 MG/DL (0.1-1.0); CALCIUM 8.1 MG/DL (8.5-10.1); CREATININE SERUM 2.05 MG/DL (0.60-1.30); POTASSIUM 4.3 MMOL/L (3.6-5.0); TOTAL PROTEIN 5.6 G/DL (6.4-8.2)
[2016-05-01 08:00] VITALS: BP 105/54
[2016-05-01] MEDS: meTOprolol TARTRATE 25 MG (LOPRESSOR) TABLET PO SCH (08:46)
[2016-05-01] MEDS: PROPRANOLOL 20 MG (INDERAL) TABLET PO SCH ×2 (08:46→20:54)
[2016-05-01] MEDS: TERAZOSIN 5 MG (HYTRIN) CAPSULE PO SCH (08:46)
[2016-05-01] MEDS: RIFAXIMIN 550 MG TABLET (XIFAXAN) PO SCH ×2 (08:46→20:54)
[2016-05-01] MEDS: LORATADINE (CLARITIN) 10 MG TAB PO SCH (08:46)
[2016-05-01] MEDS ORDERED: HYDROCHLOROTHIAZIDE 12.5 MG (HCTZ) CAP PO SCH (09:00)
--- NOTE | 2016-05-01 09:07 | Progress Note (SOAP) ---
Subjective Subjective/Events-last exam Patient states he is feeling so-so, but much better than yesterday. Afebrile, no acute events. Date seen by provider: May 01, 2016 Time seen by provider: 10:00 Objective Exam Last Set of Vital Signs Vital Signs Date Time Temp Pulse Resp B/P Pulse Ox O2 Delivery O2 Flow Rate FiO2 05/01/16 08:58 99 Room Air 05/01/16 04:00 98.0 72 18 117/71 Capillary Refill : Less Than 3 SecondsLess Than 3 Seconds I&O Bad tableGeneral: Alert, Oriented X3, No Acute Distress Lungs: Clear to Auscultation, Normal Air Movement Heart: Regular Rate, No Murmurs Extremities: No Edema Neuro: Normal Speech Psych/Mental Status: Mental Status NL Results/Procedures Lab Laboratory Tests 04/30/16 12:45: Alanine Aminotransferase (ALT/SGPT) 93H, Albumin 2.8L, Alkaline Phosphatase 151H , Ammonia 73H, Anion Gap 6, Aspartate Amino Transf (AST/SGOT) 170H, BUN/ Creatinine Ratio 20, Basophils # (Auto) 0.0, Basophils (%) (Auto) 0, Blood Urea Nitrogen 36H, Calcium Level 8.7, Carbon Dioxide Level 17L, Chloride Level 117H, Creatinine 1.79H, Eosinophils # (Auto) 0.0, Eosinophils (%) (Auto) 1, Estimat Glomerular Filtration Rate 38, Glucose Level 134H, Hematocrit 31L, Hemoglobin 10.5L, Lymphocytes # (Auto) 1.3, Lymphocytes (%) (Auto) 32, Mean Corpuscular Hemoglobin 37H, Mean Corpuscular Hemoglobin Concent 34, Mean Corpuscular Volume 107H, Mean Platelet Volume 11.5H, Monocytes # (Auto) 0.3, Monocytes (%) (Auto) 8 , Neutrophils # (Auto) 2.5, Neutrophils (%) (Auto) 60, Platelet Count 41L, Potassium Level 6.4H, Red Blood Count 2.87L, Red Cell Distribution Width 16.1H, Sodium Level 140, Total Bilirubin 3.8H, Total Protein 6.3L, White Blood Count 4.2L 04/30/16 17:23: Anion Gap 6, BUN/Creatinine Ratio 19, Blood Urea Nitrogen 35H, Calcium Level 8.6 , Carbon Dioxide Level 18L, Chloride Level 117H, Creatinine 1.87H, Estimat Glomerular Filtration Rate 36, Glucose Level 138H, Potassium Level 5.0, Sodium Level 141 05/01/16 05:35: Alanine Aminotransferase (ALT/SGPT) 83H, Albumin 2.5L, Alkaline Phosphatase 131 , Ammonia 77H, Anion Gap 8, Aspartate Amino Transf (AST/SGOT) 143H, BUN/ Creatinine Ratio 19, Basophils # (Auto) 0.0, Basophils (%) (Auto) 0, Blood Urea Nitrogen 38H, Calcium Level 8.1L, Carbon Dioxide Level 18L, Chloride Level 116H , Creatinine 2.05H, Eosinophils # (Auto) 0.0, Eosinophils (%) (Auto) 1, Estimat Glomerular Filtration Rate 33, Glucose Level 104, Hematocrit 28L, Hemoglobin 9.7L, Lymphocytes # (Auto) 2.1, Lymphocytes (%) (Auto) 47H, Mean Corpuscular Hemoglobin 37H, Mean Corpuscular Hemoglobin Concent 35, Mean Corpuscular Volume 107H, Mean Platelet Volume 12.2H, Monocytes # (Auto) 0.3, Monocytes (%) (Auto) 7 , Neutrophils # (Auto) 2.0, Neutrophils (%) (Auto) 45, Platelet Count 40L, Potassium Level 4.3, Red Blood Count 2.62L, Red Cell Distribution Width 16.2H, Sodium Level 142, Total Bilirubin 3.2H, Total Protein 5.6L, White Blood Count 4.5 Assessment/Plan Assessment/Plan Admission Dx 1. Hepatic encephalopathy 2. Hyperkalemia 3. Chronic renal insufficiency 4. Alcoholic cirrhosis/chronic hepatitis C 5. Pancytopenia 6. HTN 7. DMII 8. Gout Plan 1. Hepatic encephalopathy -Will monitor with kayexalate given for hyperkalemia, resume lactulose when kayexalate complete, resume home rifaximin -US to check for ascites (CT abdomen on 04/28 with no ascites, but exam with possible ascites) and if present paracentesis to rule out SBP 05/01 mental status improved, no ascites noted on US, potassium normal, will stop kayexalate and resume lactulose 2. Hyperkalemia- kayexalate, lasix; no EKG changes, monitor on telemetry -Likely due to spironolactone use and chronic kidney insufficiency with poor fluid intake recently 05/01 RESOLVED, will likely need to resume spironolactone, but would anticipate will need furosemide along with it to prevent hyperkalemia 3. Chronic renal insufficiency- decreased GFR since at least 09/2015 -Hold home meloxicam -Renally dose medications 05/01 worsening, unclear if related to diuretic use or worsening underlying disease, hepatorenal syndrome- will check UA and renal ultrasound and if unrevealing, consider trial of albumin to help clarify if may be hepatorenal or due to intravascular volume depletion 4. Alcoholic cirrhosis/chronic hepatitis C- with worsening encephalopathy -Resume home propranolol -Has been referred to Hepatology, not yet scheduled 5. Pancytopenia- likely secondary to above, monitor 6. HTN- resume home medications 7. DMII- diet controlled -ADA diet 8. Gout- hold allopurinol as it can be associated with pancytopenia and elevated liver testing DVT ppx- SCDs, no enoxaparin due to low platelets Disposition: 05/01 he states he has been considering and wants to be DNR at this time. Social work also consulted to assist with preparing DPOA and advance directive. Diagnosis/Problems: Clinical Quality Measures DVT/VTE Risk/Contraindication: Risk Factor Score Per Nursin RFS Level Per Nursing on Admit: 4+=Very High Contraindications-Mechi: Other *list below* Other: Low platelets ASHLIE JOINER MD May 01, 2016 9:07 am
[2016-05-01] MEDS: LACTULOSE SYRUP 10GM/15ML (ENULOSE) 30ML UDC PO SCH ×3 (09:19→20:53)
--- NOTE | 2016-05-01 10:51 | Diagnostic Imaging Report ---
Renal ultrasound. INDICATION: Acute renal insufficiency. FINDINGS: The right kidney is 12.3 and the left kidney is 12.8 cm in length. There is no hydronephrosis or focal lesion. Renal parenchymal contour is somewhat lobulated on both sides with no definite mass. The urinary bladder is not well distended with no obvious abnormality seen. IMPRESSION: No hydronephrosis. Dictated by: Dictated on workstation # [id number]
[2016-05-01 13:00] VITALS: BP 104/65
[2016-05-01] MEDS: NS IV 1000 ML 1,000 ML IV SCH (14:10)
[2016-05-01 16:00] VITALS: BP 103/62
[2016-05-01] MEDS: ALBUMIN 25% 25 GM/100 ML 100 ML IV SCH (17:42)
[2016-05-01 19:17] VITALS: BP 113/69
[2016-05-01] MEDS: meTOprolol TARTRATE 50 MG (LOPRESSOR) TAB PO SCH (20:54)
[2016-05-02] MEDS: ALBUMIN 25% 25 GM/100 ML 100 ML IV SCH ×4 (00:16→18:23)
[2016-05-02 00:17] VITALS: BP 122/64
[2016-05-02 04:00] VITALS: BP 108/62
[2016-05-02] MEDS: PANTOPRAZOLE 40 MG (PROTONIX) TAB PO SCH (05:34)
[2016-05-02 06:35] LABS: MEAN PLATELET VOLUME 12.9 FL (7.4-10.4); RED BLOOD COUNT 2.43 10^6/uL (4.35-5.85); RED CELL DISTRIBUTION WIDTH 15.9 % (10.0-14.5); WHITE BLOOD COUNT 3.8 10^3/uL (4.3-11.0)
[2016-05-02 06:59] LABS: ALBUMIN 2.9 G/DL (3.2-4.5); BILIRUBIN,TOTAL 2.6 MG/DL (0.1-1.0); CALCIUM 7.9 MG/DL (8.5-10.1); CREATININE SERUM 1.7 MG/DL (0.60-1.30); MAGNESIUM 1.3 MG/DL (1.8-2.4); POTASSIUM 4.1 MMOL/L (3.6-5.0); TOTAL PROTEIN 5.7 G/DL (6.4-8.2)
[2016-05-02 07:15] LABS: BILIRUBIN,URINE NEGATIVE (NEGATIVE); KETONES,URINE NEGATIVE (NEGATIVE); LEUKOCYTE ESTERASE ,URINE NEGATIVE (NEGATIVE); NITRITE,URINE NEGATIVE (NEGATIVE); PH,URINE 6 (5-9); PROTEIN,URINE NEGATIVE (NEGATIVE); UROBILINOGEN,URINE 8 MG/DL (NORMAL)
[2016-05-02 07:22] LABS: WBC,URINE 0-2 /HPF
[2016-05-02 07:23] LABS: SQUAMOUS EPITHELIAL CELL,UR RARE /HPF
[2016-05-02 08:00] VITALS: BP 129/78
[2016-05-02] MEDS: PROPRANOLOL 20 MG (INDERAL) TABLET PO SCH ×2 (08:19→21:13)
[2016-05-02] MEDS: TERAZOSIN 5 MG (HYTRIN) CAPSULE PO SCH (08:19)
[2016-05-02] MEDS: LACTULOSE SYRUP 10GM/15ML (ENULOSE) 30ML UDC PO SCH ×2 (08:19→21:13)
[2016-05-02] MEDS: LORATADINE (CLARITIN) 10 MG TAB PO SCH (08:19)
[2016-05-02] MEDS: RIFAXIMIN 550 MG TABLET (XIFAXAN) PO SCH ×2 (08:19→21:13)
[2016-05-02] MEDS: meTOprolol TARTRATE 25 MG (LOPRESSOR) TABLET PO SCH (08:19)
[2016-05-02 12:00] VITALS: BP 106/64
[2016-05-02] MEDS: NS IV 1000 ML 1,000 ML IV SCH (12:53)
--- NOTE | 2016-05-02 13:17 | Progress Note (SOAP) ---
Subjective Subjective/Events-last exam Patient states he is feeling fairly well this morning. He has expressed to social work when they came to help with arranging DPOA and advance directive that he doesn't feel he can take care of himself at home and would like to go to a chcf. Objective Exam Last Set of Vital Signs Vital Signs Date Time Temp Pulse Resp B/P Pulse Ox O2 Delivery O2 Flow Rate FiO2 05/02/16 12:00 97.4 67 18 106/64 97 Room Air Capillary Refill : Less Than 3 SecondsLess Than 3 Seconds General: Alert, Oriented X3 Lungs: Clear to Auscultation, Normal Air Movement Heart: Regular Rate, No Murmurs Neuro: Normal Speech Psych/Mental Status: Mental Status NL Results/Procedures Lab Laboratory Tests 05/02/16 05:30: Urine Bacteria NEGATIVE, Urine Bilirubin NEGATIVE, Urine Casts NONE, Urine Clarity CLEAR, Urine Color YELLOW, Urine Crystals NONE, Urine Culture Indicated NO, Urine Glucose (UA) NEGATIVE, Urine Ketones NEGATIVE, Urine Leukocyte Esterase NEGATIVE, Urine Mucus NEGATIVE, Urine Nitrite NEGATIVE, Urine Protein NEGATIVE, Urine RBC RARE, Urine RBC (Auto) NEGATIVE, Urine Specific [place] 1.015L, Urine Squamous Epithelial Cells RARE, Urine Urobilinogen 8H, Urine WBC 0 -2, Urine pH 6 05/02/16 05:44: Alanine Aminotransferase (ALT/SGPT) 70H, Albumin 2.9L, Alkaline Phosphatase 136 , Anion Gap 8, Aspartate Amino Transf (AST/SGOT) 124H, BUN/Creatinine Ratio 20, Blood Urea Nitrogen 34H, Calcium Level 7.9L, Carbon Dioxide Level 18L, Chloride Level 113H, Creatinine 1.70H, Estimat Glomerular Filtration Rate 41, Glucose Level 84, Hematocrit 26L, Hemoglobin 8.9L, Magnesium Level 1.3L, Mean Corpuscular Hemoglobin 37H, Mean Corpuscular Hemoglobin Concent 34, Mean Corpuscular Volume 107H, Mean Platelet Volume 12.9H, Platelet Count 36*L, Potassium Level 4.1, Red Blood Count 2.43L, Red Cell Distribution Width 15.9H, Sodium Level 139, Total Bilirubin 2.6H, Total Protein 5.7L, White Blood Count 3.8L Assessment/Plan Assessment/Plan Admission Dx 1. Hepatic encephalopathy 2. Hyperkalemia 3. Chronic renal insufficiency 4. Alcoholic cirrhosis/chronic hepatitis C 5. Pancytopenia 6. HTN 7. DMII 8. Gout Plan 1. Hepatic encephalopathy -Will monitor with kayexalate given for hyperkalemia, resume lactulose when kayexalate complete, resume home rifaximin -US to check for ascites (CT abdomen on 04/28 with no ascites, but exam with possible ascites) and if present paracentesis to rule out SBP 05/01 mental status improved, no ascites noted on US, potassium normal, will stop kayexalate and resume lactulose 2. Hyperkalemia- kayexalate, lasix; no EKG changes, monitor on telemetry -Likely due to spironolactone use and chronic kidney insufficiency with poor fluid intake recently 05/01 RESOLVED, will likely need to resume spironolactone, but would anticipate will need furosemide along with it to prevent hyperkalemia 3. Chronic renal insufficiency- decreased GFR since at least 09/2015 -Hold home meloxicam -Renally dose medications -05/01 worsening, unclear if related to diuretic use or worsening underlying disease, hepatorenal syndrome- will check UA and renal ultrasound and if unrevealing, consider trial of albumin to help clarify if may be hepatorenal or due to intravascular volume depletion 05/02 Renal function improved to baseline with albumin treatment, will complete 48 hour treatment and then consider when he needs restarted on diuretics now that he is eating and drinking better than he was at home. 4. Alcoholic cirrhosis/chronic hepatitis C- with worsening encephalopathy -Resume home propranolol -Has been referred to Hepatology, not yet scheduled 5. Pancytopenia- likely secondary to above, monitor 6. HTN- resume home medications 7. DMII- diet controlled -ADA diet 8. Gout- hold allopurinol as it can be associated with pancytopenia and elevated liver testing DVT ppx- SCDs, no enoxaparin due to low platelets Disposition: 05/01 he states he has been considering and wants to be DNR at this time. Social work also consulted to assist with preparing DPOA and advance directive. 05/02 he stated to social work he is interested in chcf placement. Anticipate he will be inpatient through the weekend to complete medication adjustments and ensure no return of hyperkalemia, etc, can address on Thursday. Diagnosis/Problems: Clinical Quality Measures DVT/VTE Risk/Contraindication: Risk Factor Score Per Nursin RFS Level Per Nursing on Admit: 4+=Very High Contraindications-Mechi: Other *list below* Other: Low platelets ASHLIE JOINER MD May 02, 2016 1:17 pm
[2016-05-02] MEDS ORDERED: MAGNESIUM 1 GM/100 ML IVPB 100 ML IV ONE (14:00)
[2016-05-02 16:00] VITALS: BP 117/64
[2016-05-02 20:00] VITALS: BP 118/68
[2016-05-02] MEDS: meTOprolol TARTRATE 50 MG (LOPRESSOR) TAB PO SCH (21:13)
[2016-05-03] VITALS: BP 104/62
[2016-05-03] MEDS: ALBUMIN 25% 25 GM/100 ML 100 ML IV SCH ×3 (00:33→11:55)
[2016-05-03 05:40] LABS: MEAN PLATELET VOLUME 11.8 FL (7.4-10.4); RED BLOOD COUNT 2.49 10^6/uL (4.35-5.85); RED CELL DISTRIBUTION WIDTH 15.5 % (10.0-14.5); WHITE BLOOD COUNT 3.2 10^3/uL (4.3-11.0)
[2016-05-03] MEDS: PANTOPRAZOLE 40 MG (PROTONIX) TAB PO SCH (05:57)
[2016-05-03 06:00] LABS: CREATININE SERUM 1.48 MG/DL (0.60-1.30); POTASSIUM 4.4 MMOL/L (3.6-5.0)
[2016-05-03 06:01] LABS: ALBUMIN 3.7 G/DL (3.2-4.5); BILIRUBIN,TOTAL 2.7 MG/DL (0.1-1.0); CALCIUM 8.8 MG/DL (8.5-10.1); TOTAL PROTEIN 6.2 G/DL (6.4-8.2)
[2016-05-03 07:48] VITALS: BP 130/71
[2016-05-03] MEDS: LACTULOSE SYRUP 10GM/15ML (ENULOSE) 30ML UDC PO SCH ×2 (08:29→20:16)
[2016-05-03] MEDS: RIFAXIMIN 550 MG TABLET (XIFAXAN) PO SCH ×2 (08:29→20:16)
[2016-05-03] MEDS: meTOprolol TARTRATE 25 MG (LOPRESSOR) TABLET PO SCH (08:29)
[2016-05-03] MEDS: PROPRANOLOL 20 MG (INDERAL) TABLET PO SCH ×2 (08:29→20:16)
[2016-05-03] MEDS: LORATADINE (CLARITIN) 10 MG TAB PO SCH (08:29)
[2016-05-03] MEDS: TERAZOSIN 5 MG (HYTRIN) CAPSULE PO SCH (08:30)
--- NOTE | 2016-05-03 08:55 | Progress Note (SOAP) ---
Subjective Subjective/Events-last exam Communicating very well. He voices no new concerns other than he is urinating quit a bit. Objective Exam Last Set of Vital Signs Vital Signs Date Time Temp Pulse Resp B/P Pulse Ox O2 Delivery O2 Flow Rate FiO2 05/03/16 07:48 98.0 99 20 130/71 99 Room Air Capillary Refill : Less Than 3 SecondsLess Than 3 Seconds I&O Intake and Output 05/03/16 00:00 Intake Total 3530 ml Balance 3530 ml Intake Oral 2130 ml IV Total 1400 ml # Voids 17 # Bowel Movements 9 General: No Acute Distress Lungs: Clear to Auscultation Heart: Regular Rate Abdomen: Soft Results/Procedures Lab Laboratory Tests 05/03/16 05:15: Alanine Aminotransferase (ALT/SGPT) 69H, Albumin 3.7, Alkaline Phosphatase 156H , Anion Gap 8, Aspartate Amino Transf (AST/SGOT) 122H, BUN/Creatinine Ratio 19, Blood Urea Nitrogen 28H, Calcium Level 8.8, Carbon Dioxide Level 18L, Chloride Level 115H, Creatinine 1.48H, Estimat Glomerular Filtration Rate 48, Glucose Level 100, Hematocrit 26L, Hemoglobin 9.3L, Magnesium Level 2.0, Mean Corpuscular Hemoglobin 37H, Mean Corpuscular Hemoglobin Concent 35, Mean Corpuscular Volume 106H, Mean Platelet Volume 11.8H, Platelet Count 35*L, Potassium Level 4.4, Red Blood Count 2.49L, Red Cell Distribution Width 15.5H, Sodium Level 141, Total Bilirubin 2.7H, Total Protein 6.2L, White Blood Count 3.2L Assessment/Plan Assessment/Plan Admission Dx 1. Hepatic encephalopathy 2. Hyperkalemia 3. Chronic renal insufficiency 4. Alcoholic cirrhosis/chronic hepatitis C 5. Pancytopenia 6. HTN 7. DMII 8. Gout Plan 1. Hepatic encephalopathy -Will monitor with kayexalate given for hyperkalemia, resume lactulose when kayexalate complete, resume home rifaximin -US to check for ascites (CT abdomen on 04/28 with no ascites, but exam with possible ascites) and if present paracentesis to rule out SBP 05/01 mental status improved, no ascites noted on US, potassium normal, will stop kayexalate and resume lactulose 2. Hyperkalemia- kayexalate, lasix; no EKG changes, monitor on telemetry -Likely due to spironolactone use and chronic kidney insufficiency with poor fluid intake recently 05/01 RESOLVED, will likely need to resume spironolactone, but would anticipate will need furosemide along with it to prevent hyperkalemia 05/02 begin furosemide in the am of 05/04 -recheck labs in the am 3. Chronic renal insufficiency- decreased GFR since at least 09/2015 -Hold home meloxicam -Renally dose medications -05/01 worsening, unclear if related to diuretic use or worsening underlying disease, hepatorenal syndrome- will check UA and renal ultrasound and if unrevealing, consider trial of albumin to help clarify if may be hepatorenal or due to intravascular volume depletion 05/02 Renal function improved to baseline with albumin treatment, will complete 48 hour treatment and then consider when he needs restarted on diuretics now that he is eating and drinking better than he was at home. 4. Alcoholic cirrhosis/chronic hepatitis C- with worsening encephalopathy -Resume home propranolol -Has been referred to Hepatology, not yet scheduled 5. Pancytopenia- likely secondary to above, monitor 6. HTN- resume home medications 7. DMII- diet controlled -ADA diet 8. Gout- hold allopurinol as it can be associated with pancytopenia and elevated liver testing DVT ppx- SCDs, no enoxaparin due to low platelets Disposition: 05/01 he states he has been considering and wants to be DNR at this time. Social work also consulted to assist with preparing DPOA and advance directive. 05/02 he stated to social work he is interested in jail placement. Anticipate he will be inpatient through the weekend to complete medication adjustments and ensure no return of hyperkalemia, etc, can address on Thursday. Diagnosis/Problems: Clinical Quality Measures DVT/VTE Risk/Contraindication: Risk Factor Score Per Nursin RFS Level Per Nursing on Admit: 4+=Very High Contraindications-Mechi: Other *list below* Other: Low platelets ALYSA LOPEZ MD May 03, 2016 08:55
[2016-05-03 16:03] VITALS: BP 122/69
[2016-05-03] MEDS: NS IV 1000 ML 1,000 ML IV SCH (17:08)
[2016-05-03] MEDS: meTOprolol TARTRATE 50 MG (LOPRESSOR) TAB PO SCH (20:16)
[2016-05-04] VITALS: BP 129/71
[2016-05-04 05:13] LABS: BASOPHILS % (AUTO) 0 % (0-10); EOSINOPHILS % (AUTO) 1 % (0-10); LYMPHOCYTES # (AUTO) 1.6 X 10^3 (1.0-4.0); LYMPHOCYTES % (AUTO) 48 % (12-44); MEAN CORPUSCULAR HEMOGLOBIN 37 PG (25-34); MEAN CORPUSCULAR HGB CONC 35 G/DL (32-36); MEAN CORPUSCULAR VOLUME 105 FL (80-99); MEAN PLATELET VOLUME 11.7 FL (7.4-10.4); MONOCYTES # (AUTO) 0.4 X 10^3 (0.0-1.0); MONOCYTES % (AUTO) 12 % (0-12); NEUTROPHILS # (AUTO) 1.3 X 10^3 (1.8-7.8); NEUTROPHILS % (AUTO) 38 % (42-75); RED BLOOD COUNT 2.43 10^6/uL (4.35-5.85); RED CELL DISTRIBUTION WIDTH 15.7 % (10.0-14.5); WHITE BLOOD COUNT 3.4 10^3/uL (4.3-11.0)
[2016-05-04 05:18] LABS: PLATELET COUNT 35 10^3/uL (130-400)
[2016-05-04 05:32] LABS: ANION GAP 6 MMOL/L (5-14); BLOOD UREA NITROGEN 23 MG/DL (7-18); BUN/CREATININE RATIO 19; CALCIUM 8.3 MG/DL (8.5-10.1); CARBON DIOXIDE 19 MMOL/L (21-32); CHLORIDE 114 MMOL/L (98-107); CREATININE SERUM 1.19 MG/DL (0.60-1.30); GFR ESTIMATED > 60; GLUCOSE 84 MG/DL (70-105); SODIUM 139 MMOL/L (135-145)
[2016-05-04 07:02] VITALS: BP 102/53
[2016-05-04] MEDS: PANTOPRAZOLE 40 MG (PROTONIX) TAB PO SCH (07:13)
[2016-05-04] MEDS: meTOprolol TARTRATE 25 MG (LOPRESSOR) TABLET PO SCH (08:00)
[2016-05-04] MEDS: RIFAXIMIN 550 MG TABLET (XIFAXAN) PO SCH ×2 (08:00→20:25)
[2016-05-04] MEDS: PROPRANOLOL 20 MG (INDERAL) TABLET PO SCH ×2 (08:00→20:25)
[2016-05-04] MEDS: TERAZOSIN 5 MG (HYTRIN) CAPSULE PO SCH (08:00)
[2016-05-04] MEDS: LACTULOSE SYRUP 10GM/15ML (ENULOSE) 30ML UDC PO SCH ×2 (08:01→20:25)
[2016-05-04] MEDS: LORATADINE (CLARITIN) 10 MG TAB PO SCH (08:01)
--- NOTE | 2016-05-04 10:04 | Progress Note (SOAP) ---
Subjective Subjective/Events-last exam Patient communicating with clear mind this morning. He actually feels pretty good. We are still waiting on placement and this should be arranged for him tomorrow. Objective Exam Last Set of Vital Signs Vital Signs Date Time Temp Pulse Resp B/P Pulse Ox O2 Delivery O2 Flow Rate FiO2 05/04/16 07:02 98.0 59 20 102/53 96 Room Air Capillary Refill : Less Than 3 SecondsLess Than 3 Seconds I&O Bad tableGeneral: No Acute Distress Neck: Supple Lungs: Clear to Auscultation Heart: Regular Rate Abdomen: Soft Results/Procedures Lab Laboratory Tests 05/04/16 05:03: Anion Gap 6, BUN/Creatinine Ratio 19, Basophils # (Auto) 0.0, Basophils (%) ( Auto) 0, Blood Urea Nitrogen 23H, Calcium Level 8.3L, Carbon Dioxide Level 19L, Chloride Level 114H, Creatinine 1.19, Eosinophils # (Auto) 0.0, Eosinophils (%) (Auto) 1, Estimat Glomerular Filtration Rate > 60, Glucose Level 84, Hematocrit 26L, Hemoglobin 9.0L, Lymphocytes # (Auto) 1.6, Lymphocytes (%) (Auto) 48H, Mean Corpuscular Hemoglobin 37H, Mean Corpuscular Hemoglobin Concent 35, Mean Corpuscular Volume 105H, Mean Platelet Volume 11.7H, Monocytes # (Auto) 0.4, Monocytes (%) (Auto) 12, Neutrophils # (Auto) 1.3L, Neutrophils (%) (Auto) 38L, Platelet Count 35*L, Potassium Level 4.0, Red Blood Count 2.43L, Red Cell Distribution Width 15.7H, Sodium Level 139, White Blood Count 3.4L Assessment/Plan Assessment/Plan Admission Dx 1. Hepatic encephalopathy 2. Hyperkalemia 3. Chronic renal insufficiency 4. Alcoholic cirrhosis/chronic hepatitis C 5. Pancytopenia 6. HTN 7. DMII 8. Gout Plan 1. Hepatic encephalopathy -Will monitor with kayexalate given for hyperkalemia, resume lactulose when kayexalate complete, resume home rifaximin -US to check for ascites (CT abdomen on 04/28 with no ascites, but exam with possible ascites) and if present paracentesis to rule out SBP 05/01 mental status improved, no ascites noted on US, potassium normal, will stop kayexalate and resume lactulose 05/04 clinically mental status markedly improved 2. Hyperkalemia- kayexalate, lasix; no EKG changes, monitor on telemetry -Likely due to spironolactone use and chronic kidney insufficiency with poor fluid intake recently 05/01 RESOLVED, will likely need to resume spironolactone, but would anticipate will need furosemide along with it to prevent hyperkalemia 05/02 begin furosemide in the am of 05/04 -recheck labs in the am 05/04 the furosemide was held since he has been with clinical diuresis 3. Chronic renal insufficiency- decreased GFR since at least 09/2015 -Hold home meloxicam -Renally dose medications -05/01 worsening, unclear if related to diuretic use or worsening underlying disease, hepatorenal syndrome- will check UA and renal ultrasound and if unrevealing, consider trial of albumin to help clarify if may be hepatorenal or due to intravascular volume depletion 05/02 Renal function improved to baseline with albumin treatment, will complete 48 hour treatment and then consider when he needs restarted on diuretics now that he is eating and drinking better than he was at home. 4. Alcoholic cirrhosis/chronic hepatitis C- with worsening encephalopathy -Resume home propranolol -Has been referred to Hepatology, not yet scheduled 5. Pancytopenia- likely secondary to above, monitor 6. HTN- resume home medications 7. DMII- diet controlled -ADA diet 8. Gout- hold allopurinol as it can be associated with pancytopenia and elevated liver testing DVT ppx- SCDs, no enoxaparin due to low platelets Disposition: 05/01 he states he has been considering and wants to be DNR at this time. Social work also consulted to assist with preparing DPOA and advance directive. 05/02 he stated to social work he is interested in care home placement. Anticipate he will be inpatient through the weekend to complete medication adjustments and ensure no return of hyperkalemia, etc, can address on Thursday. Diagnosis/Problems: Clinical Quality Measures DVT/VTE Risk/Contraindication: Risk Factor Score Per Nursin RFS Level Per Nursing on Admit: 4+=Very High Contraindications-Mechi: Other *list below* Other: Low platelets ALYSA LOPEZ MD May 04, 2016 10:04
[2016-05-04 12:00] VITALS: BP 132/77
[2016-05-04 16:00] VITALS: BP 124/76
[2016-05-04] MEDS: NS IV 1000 ML 1,000 ML IV SCH (16:14)
[2016-05-04 20:23] VITALS: BP 128/71
[2016-05-04] MEDS: meTOprolol TARTRATE 50 MG (LOPRESSOR) TAB PO SCH (20:25)
[2016-05-05] VITALS: BP 122/70
[2016-05-05 03:46] VITALS: BP 131/81
[2016-05-05] MEDS: PANTOPRAZOLE 40 MG (PROTONIX) TAB PO SCH (06:13)
[2016-05-05 08:00] VITALS: BP 130/74
[2016-05-05] MEDS: TERAZOSIN 5 MG (HYTRIN) CAPSULE PO SCH (10:18)
[2016-05-05] MEDS: LORATADINE (CLARITIN) 10 MG TAB PO SCH (10:18)
[2016-05-05] MEDS: RIFAXIMIN 550 MG TABLET (XIFAXAN) PO SCH (10:18)
[2016-05-05] MEDS: PROPRANOLOL 20 MG (INDERAL) TABLET PO SCH (10:18)
[2016-05-05] MEDS: LACTULOSE SYRUP 10GM/15ML (ENULOSE) 30ML UDC PO SCH (10:18)
[2016-05-05] MEDS: meTOprolol TARTRATE 25 MG (LOPRESSOR) TABLET PO SCH (10:18)
[2016-05-05] MEDS: NS IV 1000 ML 1,000 ML IV SCH (12:10)
[2016-05-05] MEDS ORDERED: FURO-125 PO (13:02)
[2016-05-05] MEDS ORDERED: TRAM50TA2 PO (13:02)
--- NOTE | 2016-05-05 13:07 | Discharge Inst-Skilled Nursing ---
Discharge Inst-Skilled NF Patient Instructions Patient Problems: CHRONIC HEPATITIS C INFECTION HEPATIC ENCEPHALOPATHY PANCYTOPENIA Goal: IMPROVED FUNCTIONAL STATUS AND ABILITY TO COMPLETE ADL'S Patient Instructions: PLEASE MAKE ARRANGEMENTS TO SEE DR PEARSON AT HER [facility]LIE[facility]EN[facility] Consult/Follow Up/Orders Follow up appt.: PT TO ARRANGE WITH DR PEARSON. HE IS TRANSFERRING CARE TO HER [facility] DOES NOT ADMIT TO THIS SNF. Skilled NF Admit to: [facility] I certify that SNF services are required to be given on an inpatient basis because of the above named patient's need for senior care care on a continuing basis for the conditions(s) for which he/she was receiving inpatient hospital services prior to his/her transfer to the SNF. [facility] Facility Order: Nursing Services, [employer]-Evaluate & Treat, Physical Therapy-Evaluate & Treat Discharge Diet: Low Sodium Diet, Other Diet (2L FLUID RESTRICTION) Daily Activity as Tolerated: Yes Discharge Medications New, Converted or Re-Newed RX: Other New Medications: Furosemide (Lasix) 20 Mg Tablet 20 MG PO DAILY #30 Ref 1 TAB Tramadol HCl (Tramadol HCl) 50 Mg Tablet 50 MG PO BID #60 Ref 0 TAB Continued Medications: Allopurinol (Allopurinol) 300 Mg Tablet 300 MG PO DAILY Cetirizine HCl (Cetirizine HCl) 10 Mg Tablet 10 MG PO DAILY Lactulose (Lactulose) 10 Gm/15 Ml Solution 30 ML PO DAILY Metoprolol Tartrate (Metoprolol Tartrate) 50 Mg Tablet 50 MG PO HS Metoprolol Tartrate (Metoprolol Tartrate) 50 Mg Tablet 25 MG PO DAILY TAKES 1/2 OF A (25 MG) TABLET Pantoprazole Sodium (Pantoprazole Sodium) 40 Mg Tablet.dr 40 MG PO DAILY Propranolol HCl (Propranolol HCl) 20 Mg Tablet 20 MG PO BID Rifaximin (Xifaxan) 550 Mg Tablet 550 MG PO BID TAB Spironolactone (Spironolactone) 100 Mg Tablet 100 MG PO DAILY Terazosin HCl (Terazosin HCl) 5 Mg Capsule 5 MG PO DAILY Discontinued Medications: Hydrochlorothiazide (Hydrochlorothiazide) 25 Mg Tablet 12.5 MG PO DAILY TAKES 1/2 OF A (25 MG) TABLET Meloxicam (Meloxicam) 15 Mg Tablet 15 MG PO HS Lorna Bagley May 05, 2016 13:03 Copy Copies To 1: MONI PEARSON JULIE A MD May 05, 2016 1:07 pm
--- NOTE | 2016-05-05 13:08 | Discharge Summary ---
Diagnosis/Chief Complaint Date of Admission Apr 30, 2016 at 2:00 pm Date of Discharge May 05, 2016 Admission Diagnosis Admission Diagnosis 1. Hepatic encephalopathy 2. Hyperkalemia 3. Chronic renal insufficiency 4. Alcoholic cirrhosis/chronic hepatitis C 5. Pancytopenia 6. HTN 7. DMII 8. Gout Discharge Diagnosis 1. Hepatic encephalopathy -Will monitor with kayexalate given for hyperkalemia, resume lactulose when kayexalate complete, resume home rifaximin -US to check for ascites (CT abdomen on 04/28 with no ascites, but exam with possible ascites) and if present paracentesis to rule out SBP 05/01 mental status improved, no ascites noted on US, potassium normal, will stop kayexalate and resume lactulose 05/04 clinically mental status markedly improved 2. Hyperkalemia- kayexalate, lasix; no EKG changes, monitor on telemetry -Likely due to spironolactone use and chronic kidney insufficiency with poor fluid intake recently 05/01 RESOLVED, will likely need to resume spironolactone, but would anticipate will need furosemide along with it to prevent hyperkalemia 05/02 begin furosemide in the am of 05/04 -recheck labs in the am 05/04 the furosemide was held since he has been with clinical diuresis 3. Chronic renal insufficiency- decreased GFR since at least 09/2015 -Hold home meloxicam -Renally dose medications -05/01 worsening, unclear if related to diuretic use or worsening underlying disease, hepatorenal syndrome- will check UA and renal ultrasound and if unrevealing, consider trial of albumin to help clarify if may be hepatorenal or due to intravascular volume depletion 05/02 Renal function improved to baseline with albumin treatment, will complete 48 hour treatment and then consider when he needs restarted on diuretics now that he is eating and drinking better than he was at home. 4. Alcoholic cirrhosis/chronic hepatitis C- with worsening encephalopathy -Resume home propranolol -Has been referred to Hepatology, not yet scheduled 5. Pancytopenia- likely secondary to above, monitor 6. HTN- resume home medications 7. DMII- diet controlled -ADA diet 8. Gout- hold allopurinol as it can be associated with pancytopenia and elevated liver testing DVT ppx- SCDs, no enoxaparin due to low platelets Disposition: 05/01 he states he has been considering and wants to be DNR at this time. Social work also consulted to assist with preparing DPOA and advance directive. 05/02 he stated to social work he is interested in custodial placement. Anticipate he will be inpatient through the weekend to complete medication adjustments and ensure no return of hyperkalemia, etc, can address on Thursday. DISCHARGE I had a long conversation with Preet and his sister jeet day of discharge. Preet is somewhat low functioning, which is why his sister does so much to take care of him. At this point, I am recommending that they focus on his abilities to complete his ADLs rather than any further treatment for the Hep C or transplants, etc. Preet is indicating to me that he does not enjoy being in hospital and does not like goign to appointments. He is quite happy that he will be going to a custodial in [place] so that his friends will be able to visit him. We discussed that it is reasonable to focus on ADls at present. He will be transferring his care to Dr Umana as she is with the [employer] system and may have access to a gastroenterology referral sooner. Certainly, I think this is a reasonable step as [facility] does not service any [place] nursing homes. I remain abailable for her to call me should she need anything regarding his records or prognosis. We will also make sure he gets the Xifaxin which I think is important at this point as well. Family is in agreement. Chief Complaint/HPI Chief Complaint/HPI 65 yo male with history of cirrhosis related to history of alcohol use and hepatitis C presents to ER for second time this week due to weakness, not feeling well. His sister is present and provides much of the history. She sets up his medications weekly and reports he typically takes all of his prescribed medications, but this morning he did not take his medications and in spite of multiple reminders and urging he was so lethargic she could not get him to take his medication. He has been treated for hepatitis C without success and has been referred to Hepatology in the last few days and is waiting to hear back about an appointment. He denies fever, abdominal pain. He does admit diarrhea but states he essentially always has with his lactulose. He denies ascites in the past. Discharge Summary-Simple/Stand Consultations Discharge Physical Examination Allergies: Coded Allergies: No Known Drug Allergies (Unverified , 04/30/16) Vitals & I&Os Vital Sign - Last 12Hours Date Time Temp Pulse Resp B/P Pulse Ox O2 Delivery O2 Flow Rate FiO2 05/05/16 08:08 Room Air 05/05/16 08:00 98.5 59 18 130/74 98 Intake and Output 05/05/16 00:00 Intake Total 2620 ml Balance 2620 ml General Appearance: Alert, Oriented X3, Cooperative, No Acute Distress Respiratory: Clear to Auscultation, Normal Air Movement Cardiovascular: Regular Rate, Normal S1, Normal S2, No Murmurs, Gallops, Rubs Abdominal: Normal Bowel Sounds, Soft, Other (ascites) Extremities: Other (bilateral edema to ankles) Psych/Mental Status: Mental Status NL, Mood NL Hospital Course See final discharge diagnosis. Discharge Instructions to patient/family Please see electonic discharge instructions given to patient. Discharge Medications Reviewed and agree with Discharge Medication list on patient's Discharge Instruction sheet Clinical Quality Measures DVT/VTE Risk/Contraindication: Risk Factor Score Per Nursin RFS Level Per Nursing on Admit: 4+=Very High Contraindications-Mechi: Other *list below* Other: Low platelets Copy Copies To 1: MONI UMANA MD; NACHO MCCALL APRN, MD May 05, 2016 13:08
== END 2016-05-05 13:55 | DRG 442 ==
LOC: EDUNIT# 12:27 → ER 12:28 → 4TH 14:00
PROVIDERS: ADMIT Family Medicine; ATTEND Family Medicine
DX: K72.90 Hepatic failure, unspecified without coma (principal); E87.5 Hyperkalemia; D61.818 Other pancytopenia; K70.30 Alcoholic cirrhosis of liver without ascites; B18.2 Chronic viral hepatitis C; I12.9 Hypertensive chronic kidney disease with stage 1 through stage 4 chronic kidney disease, or unspecified chronic kidney disease; N18.9 Chronic kidney disease, unspecified; E11.9 Type 2 diabetes mellitus without complications; Z66 Do not resuscitate; N40.0 Benign prostatic hyperplasia without lower urinary tract symptoms; M10.9 Gout, unspecified; F17.220 Nicotine dependence, chewing tobacco, uncomplicated; F10.21 Alcohol dependence, in remission
CPT/HCPCS: 36415; 76705; 76770; 80048; 80053; 81000; 82140; 83735; 85025; 85027; 93005; 94760; 96374

== ENCOUNTER 2016-12-07 09:24 | Observation (INO) | payer MEDICARE, MEDICAID ==
[~2016-12-07] VITALS: Ht 172.7 cm; Wt 115.3 kg
[~2016-12-07 09:24] MED LIST changes: +FURO-125 PO; +LACT10SO PO; +SPIR100T2 PO; +TRAM50TA2 PO
[2016-12-07 10:05] LABS: BILIRUBIN,URINE NEGATIVE (NEGATIVE); KETONES,URINE NEGATIVE (NEGATIVE); LEUKOCYTE ESTERASE ,URINE NEGATIVE (NEGATIVE); NITRITE,URINE NEGATIVE (NEGATIVE); PH,URINE 7 (5-9); PROTEIN,URINE NEGATIVE (NEGATIVE); UROBILINOGEN,URINE 1 MG/DL (NORMAL)
[2016-12-07 10:06] LABS: BASOPHILS % (AUTO) 0 % (0-10); EOSINOPHILS % (AUTO) 1 % (0-10); LYMPHOCYTES # (AUTO) 1.4 X 10^3 (1.0-4.0); LYMPHOCYTES % (AUTO) 42 % (12-44); MEAN CORPUSCULAR HEMOGLOBIN 39 PG (25-34); MEAN CORPUSCULAR HGB CONC 37 G/DL (32-36); MEAN CORPUSCULAR VOLUME 106 FL (80-99); MEAN PLATELET VOLUME 11.7 FL (7.4-10.4); MONOCYTES # (AUTO) 0.4 X 10^3 (0.0-1.0); MONOCYTES % (AUTO) 12 % (0-12); NEUTROPHILS # (AUTO) 1.5 X 10^3 (1.8-7.8); NEUTROPHILS % (AUTO) 45 % (42-75); PLATELET COUNT 40 10^3/uL (130-400); RED BLOOD COUNT 3.01 10^6/uL (4.35-5.85); RED CELL DISTRIBUTION WIDTH 15.1 % (10.0-14.5); WHITE BLOOD COUNT 3.3 10^3/uL (4.3-11.0)
[2016-12-07 10:12] LABS: ALANINE AMINOTRANSFERASE 50 U/L (0-55); ALBUMIN 2.6 GM/DL (3.2-4.5); ALCOHOL < 10 MG/DL (<10); AMMONIA 72 UMOL/L (11-32); ANION GAP 8 MMOL/L (5-14); ASPARTATE AMINO TRANSFERASE 82 U/L (5-34); BILIRUBIN,TOTAL 2.5 MG/DL (0.1-1.0); BLOOD UREA NITROGEN 19 MG/DL (7-18); BUN/CREATININE RATIO 23; CALCIUM 8.2 MG/DL (8.5-10.1); CARBON DIOXIDE 24 MMOL/L (21-32); CHLORIDE 111 MMOL/L (98-107); CREATININE SERUM 0.83 MG/DL (0.60-1.30); GFR ESTIMATED > 60; GLUCOSE 114 MG/DL (70-105); POTASSIUM 3.9 MMOL/L (3.6-5.0); SODIUM 143 MMOL/L (135-145); TOTAL PROTEIN 5.6 GM/DL (6.4-8.2)
--- NOTE | 2016-12-07 12:01 | ED General ---
General Chief Complaint: Altered Mental Status Stated Complaint: CONFUSION Nursing Triage Note: PT BROUGHT TO ED BY [facility] FROM [facility] [place] WITH C/O SUDDEN ONSET CONFUSION. IT IS REPORTED THAT PT WOKE UP THIS AM CONFUSED. PT IS A&O X 4 AT THIS TIME. HE REPORTS HE HAS LIVER DX AND THE LAST TIME HE HAD THESE S/S HIS AMMONIA LEVEL WAS HIGH AND HE WAS IN ACUTE RENAL FAILURE. Nursing Sepsis Screen: No Definite Risk Source of Information: Patient Exam Limitations: No Limitations History of Present Illness Time Seen by Provider: 11:40 Initial Comments The patient is a 66-year-old white male from [place] who presents with observation of increasing confusion. His sister states that he is clearly more confused than he was yesterday. He has liver failure and is on the transplant list at [facility]. This liver failure as on the basis of alcohol and hepatitis C. His last appointment there was about 2 months ago. He was admitted here in April with confusion and decreased performance. Medications were adjusted at that time and he was placed in a skilled nursing in [place]. He reports that he has been taking his lactulose once daily. Timing/Duration: 24 Hours Associated Systoms: Weakness Allergies and Home Medications Allergies Coded Allergies: No Known Drug Allergies (Unverified , 04/30/16) Home Medications Allopurinol 300 Mg Tablet, 300 MG PO DAILY, (Reported) Cetirizine HCl 10 Mg Tablet, 10 MG PO DAILY, (Reported) Furosemide 20 Mg Tablet, 20 MG PO DAILY, #30 Ref 1 Prescribed by: NACHO ARRIAGA on 05/05/16 1302 Lactulose 10 Gm/15 Ml Solution, 30 ML PO DAILY, (Reported) Metoprolol Tartrate 50 Mg Tablet, 50 MG PO HS, (Reported) Metoprolol Tartrate 50 Mg Tablet, 25 MG PO DAILY, (Reported) TAKES 1/2 OF A (25 MG) TABLET Pantoprazole Sodium 40 Mg Tablet.dr, 40 MG PO DAILY, (Reported) Propranolol HCl 20 Mg Tablet, 20 MG PO BID, (Reported) Rifaximin 550 Mg Tablet, 550 MG PO BID, (Reported) Spironolactone 100 Mg Tablet, 100 MG PO DAILY, (Reported) Terazosin HCl 5 Mg Capsule, 5 MG PO DAILY, (Reported) Tramadol HCl 50 Mg Tablet, 50 MG PO BID, #60 Ref 0 Prescribed by: NACHO ARRIAGA on 05/05/16 1302 Constitutional: see HPI, malaise, weakness EENTM: no symptoms reported Respiratory: no symptoms reported Cardiovascular: no symptoms reported Gastrointestinal: no symptoms reported Genitourinary: no symptoms reported Musculoskeletal: no symptoms reported Skin: no symptoms reported Psychiatric/Neurological: Other Hematologic/Lymphatic: No Symptoms Reported Immunological/Allergic: no symptoms reported Past Ezphelk-Akvkhp-Kpjxxe Hx Patient Social History Alcohol Use: Denies Use Recreational Drug Use: Yes (CHEWS TOBACCO) Smoking Status: Never a Smoker Type Used: Smokeless Tobacco 2nd Hand Smoke Exposure: No Recent Foreign Travel: No Contact w/Someone Who Travel: No Recent Infectious Disease Expo: No Recent Hopitalizations: No Physical Abuse: No Sexual Abuse: No Immunizations Up To Date Date of Pneumonia Vaccine: Mar 13, 2016 Date of Influenza Vaccine: Mar 13, 2016 Seasonal Allergies Seasonal Allergies: Yes Surgeries History of Surgeries: Yes (hernia repair) Surgeries: Gallbladder Respiratory History of Respiratory Disorde: No Cardiovascular History of Cardiac Disorders: Yes Cardiac Disorders: Chronic Edema/Swelling, Hypertension Neurological History of Neurological Disord: No Genitourinary History of Genitourinary Disor: Yes Genitourinary Disorders: Benign Prostatic Hyperpl Gastrointestinal History of Gastrointestinal Di: Yes (HEPATITIS C--NO TREATMENT) Gastrointestinal Disorders: Liver Disease/Jaundice, Hepatitis, Ulcer Musculoskeletal History of Musculoskeletal Dis: Yes (ARTHRITIS) Musculoskeletal Disorders: Arthritis, Gout Endocrine History of Endocrine Disorders: No Cancer History of Cancer: No Psychosocial History of Psychiatric Problem: No Suicide Risk Score: 0 Integumentary History of Skin or Integumenta: No Blood Transfusions History of Blood Disorders: No Family Medical History Significant Family History: No Pertinent Family Hx Family Medial History: DENIES Physical Exam Vital Signs Vital Sign - Last 12Hours 12/07/16 09:28 Temp 98.2 Pulse 60 Resp 16 B/P (MAP) 120/71 Pulse Ox 97 O2 Delivery Room Air Capillary Refill : Less Than 3 Seconds General Appearance: Mild Distress Eyes: Bilateral Eye Scleral Icterus HEENT: Normal ENT Inspection Neck: Normal Inspection Respiratory: Chest Non Tender, Lungs Clear, Normal Breath Sounds, No Accessory Muscle Use, No Respiratory Distress Cardiovascular: Regular Rate, Rhythm, No Edema, No Gallop, No JVD, No Murmur, Normal Peripheral Pulses Gastrointestinal: Other (obese. No discernible fluid wave) Back: Normal Inspection, No CVA Tenderness, No Vertebral Tenderness Extremity: Normal Capillary Refill, Normal Inspection, Normal Range of Motion, Non Tender, No Calf Tenderness, No Pedal Edema Neurologic/Psychiatric: Other Skin: Normal Color, Warm/Dry Lymphatic: No Adenopathy Progress/Results/Core Measures Results/Orders Lab Results Laboratory Tests Test 12/07/16 09:30 12/07/16 09:44 Range/Units White Blood Count 3.3 L 4.3-11.0 10^3/uL Red Blood Count 3.01 L 4.35-5.85 10^6/uL Hemoglobin 11.7 L 13.3-17.7 G/DL Hematocrit 32 L 40-54 % Mean Corpuscular Volume 106 H 80-99 FL Mean Corpuscular Hemoglobin 39 H 25-34 PG Mean Corpuscular Hemoglobin Concent 37 H 32-36 G/DL Red Cell Distribution Width 15.1 H 10.0-14.5 % Platelet Count 40 L 130-400 10^3/uL Mean Platelet Volume 11.7 H 7.4-10.4 FL Neutrophils (%) (Auto) 45 42-75 % Lymphocytes (%) (Auto) 42 12-44 % Monocytes (%) (Auto) 12 0-12 % Eosinophils (%) (Auto) 1 0-10 % Basophils (%) (Auto) 0 0-10 % Neutrophils # (Auto) 1.5 L 1.8-7.8 X 10^3 Lymphocytes # (Auto) 1.4 1.0-4.0 X 10^3 Monocytes # (Auto) 0.4 0.0-1.0 X 10^3 Eosinophils # (Auto) 0.0 0.0-0.3 10^3/uL Basophils # (Auto) 0.0 0.0-0.1 10^3/uL Sodium Level 143 135-145 MMOL/L Potassium Level 3.9 3.6-5.0 MMOL/L Chloride Level 111 H 98-107 MMOL/L Carbon Dioxide Level 24 21-32 MMOL/L Anion Gap 8 5-14 MMOL/L Blood Urea Nitrogen 19 H 7-18 MG/DL Creatinine 0.83 0.60-1.30 MG/DL Estimat Glomerular Filtration Rate > 60 BUN/Creatinine Ratio 23 Glucose Level 114 H 70-105 MG/DL Calcium Level 8.2 L 8.5-10.1 MG/DL Total Bilirubin 2.5 H 0.1-1.0 MG/DL Aspartate Amino Transf (AST/SGOT) 82 H 5-34 U/L Alanine Aminotransferase (ALT/SGPT) 50 0-55 U/L Alkaline Phosphatase 220 H 40-136 U/L Ammonia 72 H 11-32 UMOL/L Total Protein 5.6 L 6.4-8.2 GM/DL Albumin 2.6 L 3.2-4.5 GM/DL Serum Alcohol < 10 <10 MG/DL Urine Color YELLOW Urine Clarity CLEAR Urine pH 7 5-9 Urine Specific [place] 1.005 L 1.016-1.022 Urine Protein NEGATIVE NEGATIVE Urine Glucose (UA) NEGATIVE NEGATIVE Urine Ketones NEGATIVE NEGATIVE Urine Nitrite NEGATIVE NEGATIVE Urine Bilirubin NEGATIVE NEGATIVE Urine Urobilinogen 1 NORMAL MG/DL Urine Leukocyte Esterase NEGATIVE NEGATIVE Urine RBC (Auto) NEGATIVE NEGATIVE Urine RBC NONE /HPF Urine WBC NONE /HPF Urine Squamous Epithelial Cells NONE /HPF Urine Crystals NONE /LPF Urine Bacteria NEGATIVE /HPF Urine Casts NONE /LPF Urine Mucus NEGATIVE /LPF Urine Culture Indicated NO Urine Opiates Screen NEGATIVE NEGATIVE Urine Oxycodone Screen NEGATIVE NEGATIVE Urine Methadone Screen NEGATIVE NEGATIVE Urine Propoxyphene Screen NEGATIVE NEGATIVE Urine Barbiturates Screen NEGATIVE NEGATIVE Ur Tricyclic Antidepressants Screen NEGATIVE NEGATIVE Urine Phencyclidine Screen NEGATIVE NEGATIVE Urine Amphetamines Screen NEGATIVE NEGATIVE Urine Methamphetamines Screen NEGATIVE NEGATIVE Urine Benzodiazepines Screen NEGATIVE NEGATIVE Urine Cocaine Screen NEGATIVE NEGATIVE Urine Cannabinoids Screen NEGATIVE NEGATIVE My Orders Orders - PREMA LEMOS MD Alcohol (12/07/16 09:53) Ammonia (12/07/16 09:53) Cbc With Automated Diff (12/07/16 09:53) Comprehensive Metabolic Panel (12/07/16 09:53) Drug Screen Stat (Urine) (12/07/16 09:53) Ua Culture If Indicated (12/07/16 09:53) Saline Lock/Iv-Start (12/07/16 10:02) Vital Signs/I&O Vital Sign - Last 12Hours 12/07/16 09:28 Temp 98.2 Pulse 60 Resp 16 B/P (MAP) 120/71 Pulse Ox 97 O2 Delivery Room Air Blood Pressure Mean: 87 Departure Communication Progress Notes [address] LOPEZ for [facility]. Patient will be admitted for more aggressive therapy Impression Impression: Primary Impression: hepatic encephalopathy Disposition: 09 ADMITTED INPATIENT Condition: Stable/Unchanged Admissions Decision to Admit Reason: Admit from ER (General) Decision to Admit/Date: Dec 07, 2016 Time/Decision to Admit Time: 12:04 Departure-Patient Inst. Referrals: [facility] (PCP/Family) Primary Care Physician PREMA LEMOS MD Dec 07, 2016 12:01
[2016-12-07 12:59] LABS: INR 1.6 (0.8-1.4)
[2016-12-07] MEDS ORDERED: METH35.42 TP (13:12)
[2016-12-07] MEDS ORDERED: TRAM50TA2 PO (13:12)
[2016-12-07] MEDS ORDERED: ZINC220C7 PO (13:12)
[2016-12-07] MEDS ORDERED: PROP40TA5 PO (13:12)
[2016-12-07] MEDS ORDERED: KETO120S11 TP (13:12)
[2016-12-07] MEDS ORDERED: FURO40TA4 PO (13:12)
[2016-12-07] MEDS ORDERED: BACL10TA PO (13:12)
[2016-12-07] MEDS ORDERED: VITA-203 PO (13:12)
[2016-12-07 13:20] VITALS: BP 155/74
[2016-12-07] MEDS: LACTULOSE SYRUP 10GM/15ML (ENULOSE) 30ML UDC PO SCH ×2 (14:10→20:35)
[2016-12-07 16:16] VITALS: BP 146/76
--- NOTE | 2016-12-07 16:17 | History & Physicial (CHS) ---
HPI History of Present Illness: 66-year-old white male who is a resident of [facility] presents to via [facility] emergency department with increasing confusion based upon his sister's account. Patient does see a medical provider through [facility]. His sister reports that he appears to be more confused than yesterday. He does have known hepatic failure based upon alcohol as well as hepatitis C. He apparently is on the transplant list a [facility]. He has been a resident at correction in [facility] and taking lactulose once daily. Source: patient, family Exam Limitations: clinical condition Date seen by provider: Dec 07, 2016 Time Seen by Provider: 16:30 Attending Physician Alysa Lopez MD PCP Kam[facility] Date of Admission Dec 07, 2016 at 12:21 Home Medications Home Medications Reviewed patient Home Medication Reconciliation Form Allergies Coded Allergies: No Known Drug Allergies (Unverified , 04/30/16) DHF-Wgbygu-Gdnebo Hx Patient Social History Alcohol Use: Denies Use Recreational Drug Use: Yes (CHEWS TOBACCO) Smoking Status: Never a Smoker Type Used: Smokeless Tobacco 2nd Hand Smoke Exposure: No Recent Foreign Travel: No Contact w/other who traveled: No Recent Hopitalizations: No Recent Infectious Disease Expo: No Physical Abuse Screen: No Sexual Abuse: No Immunizations Up To Date Date of Pneumonia Vaccine: Mar 13, 2016 Date of Influenza Vaccine: Mar 13, 2016 Past Medical History PMHx: DMII Alcoholic cirrhosis Chronic hepatitis C Hypertension GI bleed (gastric ulcer) PSurgHx: Hernia repair Gastric ulcer repair Cholecystetomy Appendectomy Family Medical History Significant Family History: No Pertinent Family Hx Family History: DENIES Review of Systems (CHC) Constitutional: see HPI Reviewed Test Results Reviewed Test Results Lab Laboratory Tests Test 12/07/16 09:30 12/07/16 09:44 Range/Units White Blood Count 3.3 L 4.3-11.0 10^3/uL Red Blood Count 3.01 L 4.35-5.85 10^6/uL Hemoglobin 11.7 L 13.3-17.7 G/DL Hematocrit 32 L 40-54 % Mean Corpuscular Volume 106 H 80-99 FL Mean Corpuscular Hemoglobin 39 H 25-34 PG Mean Corpuscular Hemoglobin Concent 37 H 32-36 G/DL Red Cell Distribution Width 15.1 H 10.0-14.5 % Platelet Count 40 L 130-400 10^3/uL Mean Platelet Volume 11.7 H 7.4-10.4 FL Neutrophils (%) (Auto) 45 42-75 % Lymphocytes (%) (Auto) 42 12-44 % Monocytes (%) (Auto) 12 0-12 % Eosinophils (%) (Auto) 1 0-10 % Basophils (%) (Auto) 0 0-10 % Neutrophils # (Auto) 1.5 L 1.8-7.8 X 10^3 Lymphocytes # (Auto) 1.4 1.0-4.0 X 10^3 Monocytes # (Auto) 0.4 0.0-1.0 X 10^3 Eosinophils # (Auto) 0.0 0.0-0.3 10^3/uL Basophils # (Auto) 0.0 0.0-0.1 10^3/uL Prothrombin Time 19.0 H 12.2-14.7 SEC INR Comment 1.6 H 0.8-1.4 Sodium Level 143 135-145 MMOL/L Potassium Level 3.9 3.6-5.0 MMOL/L Chloride Level 111 H 98-107 MMOL/L Carbon Dioxide Level 24 21-32 MMOL/L Anion Gap 8 5-14 MMOL/L Blood Urea Nitrogen 19 H 7-18 MG/DL Creatinine 0.83 0.60-1.30 MG/DL Estimat Glomerular Filtration Rate > 60 BUN/Creatinine Ratio 23 Glucose Level 114 H 70-105 MG/DL Calcium Level 8.2 L 8.5-10.1 MG/DL Total Bilirubin 2.5 H 0.1-1.0 MG/DL Aspartate Amino Transf (AST/SGOT) 82 H 5-34 U/L Alanine Aminotransferase (ALT/SGPT) 50 0-55 U/L Alkaline Phosphatase 220 H 40-136 U/L Ammonia 72 H 11-32 UMOL/L Total Protein 5.6 L 6.4-8.2 GM/DL Albumin 2.6 L 3.2-4.5 GM/DL Serum Alcohol < 10 <10 MG/DL Urine Color YELLOW Urine Clarity CLEAR Urine pH 7 5-9 Urine Specific Ferney 1.005 L 1.016-1.022 Urine Protein NEGATIVE NEGATIVE Urine Glucose (UA) NEGATIVE NEGATIVE Urine Ketones NEGATIVE NEGATIVE Urine Nitrite NEGATIVE NEGATIVE Urine Bilirubin NEGATIVE NEGATIVE Urine Urobilinogen 1 NORMAL MG/DL Urine Leukocyte Esterase NEGATIVE NEGATIVE Urine RBC (Auto) NEGATIVE NEGATIVE Urine RBC NONE /HPF Urine WBC NONE /HPF Urine Squamous Epithelial Cells NONE /HPF Urine Crystals NONE /LPF Urine Bacteria NEGATIVE /HPF Urine Casts NONE /LPF Urine Mucus NEGATIVE /LPF Urine Culture Indicated NO Urine Opiates Screen NEGATIVE NEGATIVE Urine Oxycodone Screen NEGATIVE NEGATIVE Urine Methadone Screen NEGATIVE NEGATIVE Urine Propoxyphene Screen NEGATIVE NEGATIVE Urine Barbiturates Screen NEGATIVE NEGATIVE Ur Tricyclic Antidepressants Screen NEGATIVE NEGATIVE Urine Phencyclidine Screen NEGATIVE NEGATIVE Urine Amphetamines Screen NEGATIVE NEGATIVE Urine Methamphetamines Screen NEGATIVE NEGATIVE Urine Benzodiazepines Screen NEGATIVE NEGATIVE Urine Cocaine Screen NEGATIVE NEGATIVE Urine Cannabinoids Screen NEGATIVE NEGATIVE Physical Exam[facility]) Physical Exam Vital Signs VS - Last 72 Hours, by Label 12/07/16 12/07/16 12/07/16 09:28 13:00 13:20 Temp 98.2 98.6 Pulse 60 61 Resp 16 20 B/P (MAP) 120/71 155/74 Pulse Ox 97 97 O2 Delivery Room Air Room Air Room Air Capillary Refill : Less Than 3 Seconds General Appearance: mild distress Eyes: Bilateral Eye Scleral Icterus HEENT: pharynx normal Neck: supple Respiratory: lungs clear, No no respiratory distress, No no accessory muscle use, No respiratory distress, No decreased breath sounds, No accessory muscle use, No wheezing Cardiovascular: regular rate, rhythm Gastrointestinal: soft, other (No fluid level) Rectal: deferred Back: normal inspection Extremities: no pedal edema Skin: warm/dry Assessment/Plan Assessment/Plan Admission Dx 1. Hepatic encephalopathy 2. Hepatitis C history of Plan 1. Hepatic encephalopathy -Patient to be admitted for further treatment of his ammonia level with increased lactulose. The lactulose will be increased to 20 g twice daily. -Recheck ammonia in the a.m. as well as basic metabolic panel. 2. Hepatitis C history of Diagnosis/Problems: Clinical Quality Measures DVT/VTE Risk/Contraindication: Risk Factor Score Per Nursin RFS Level Per Nursing on Admit: 3=High ALYSA LOPEZ MD Dec 07, 2016 16:17
[2016-12-07 20:31] VITALS: BP 123/73
[2016-12-08] VITALS: BP 106/55
[2016-12-08 04:00] VITALS: BP 133/75
[2016-12-08 06:24] LABS: AMMONIA 69 UMOL/L (11-32); ANION GAP 11 MMOL/L (5-14); BLOOD UREA NITROGEN 17 MG/DL (7-18); BUN/CREATININE RATIO 21; CALCIUM 8.1 MG/DL (8.5-10.1); CARBON DIOXIDE 22 MMOL/L (21-32); CHLORIDE 108 MMOL/L (98-107); CREATININE SERUM 0.82 MG/DL (0.60-1.30); GFR ESTIMATED > 60; GLUCOSE 91 MG/DL (70-105); POTASSIUM 3.6 MMOL/L (3.6-5.0); SODIUM 141 MMOL/L (135-145)
[2016-12-08 08:00] VITALS: BP 136/76
[2016-12-08] MEDS: LACTULOSE SYRUP 10GM/15ML (ENULOSE) 30ML UDC PO SCH (08:24)
[2016-12-08 12:00] VITALS: BP 155/89
--- NOTE | 2016-12-08 12:08 | Discharge Instructions ---
Discharge Instructions Patient Instructions Patient Instructions: Resume medications as on the discharge sequence. Lactulose 30 ML's should be given twice daily until he achieves loose stools. Contact his provider for further instructions relative to management of serum ammonia Return to The Hospital For: Change in condition Activity & Diet Discharge Diet: No Restrictions PREMA LEMOS MD Dec 08, 2016 12:08
--- NOTE | 2016-12-08 12:12 | Progress Note-Hospitalist ---
Standard Progress Note Progress Notes/Assess & Plan Date Seen 12/08/16 Time Seen by Provider: 11:55 Assess & Plan/Chief Complaint The patient reports he is feeling much better. He has not yet had a stool. There is been a modest decline in his serum ammonia. He is able to give me the day month and date today which he was unable to perform yesterday. He is aware of where he is and what is circumstance is. Physical exam: Lungs are clear to auscultation. CV is regular without murmur. Abdomen is obese. The liver flap noted yesterday on dorsiflexion at the wrists is minimum and greatly reduced. Impression: Improvement in degree of hepatic encephalopathy. Plan will be to discharge with medications as on the discharge list. He will resume follow-up with his previous outpatient provider and keep appointments at [facility] as previously scheduled. Labs Laboratory Tests 12/07/16 09:30 12/08/16 06:00 Final Diagnosis 1. Hepatic encephalopathy. 2. Cirrhosis and renal failure secondary to hepatitis C/alcoholism. PREMA LEMOS MD Dec 08, 2016 12:12
== END 2016-12-08 12:05 ==
LOC: ER 09:24 → EDUNIT# 09:24 → UNDOADMOB 12:21 → 4TH 12:21 → UNDODISOB 12-08 14:00
PROVIDERS: ADMIT Family Medicine; ATTEND Family Medicine
DX: K70.40 Alcoholic hepatic failure without coma (principal); B18.2 Chronic viral hepatitis C; I10 Essential (primary) hypertension; E11.9 Type 2 diabetes mellitus without complications; F17.220 Nicotine dependence, chewing tobacco, uncomplicated; Z79.899 Other long term (current) drug therapy; Z87.19 Personal history of other diseases of the digestive system
CPT/HCPCS: 36415; 80048; 80053; 80306; 80320; 81000; 82140; 85025; 85610; G0378

== ENCOUNTER 2017-03-06 12:36 | Emergency (ER) | payer MEDICARE, MEDICAID ==
[~2017-03-06] VITALS: Ht 172.7 cm; Wt 118.4 kg
[~2017-03-06 12:36] MED LIST changes: +BACL10TA PO; +FURO40TA4 PO; +KETO120S11 TP; +METH35.42 TP; +PROP40TA5 PO; +VITA-203 PO; +ZINC220C7 PO
--- OUTSIDE RECORDS SUMMARY | 2017-03-06 12:46 | XMS REPORT | Continuity of Care Document ---
Author Author [employer] Organization [facility] Address Unknown Phone Unavailable Care Team Providers Care Fruit Washer Name Role Phone [employer] Unavailable Unavailable Problems Medications Allergies, Adverse Reactions, Alerts Immunizations Results Vital Signs Encounters Location Location Details Encounter Type Encounter Number Reason For Visit Attending Provider ADM Date DC Date Status Source OUTPATIENT [id number] MARIFER HUMPHRIES 05/27/2016 05/27/2016 Active [facility] OUTPATIENT [id number] MARIFER HUMPHRIES 07/02/2016 07/02/2016 Active [facility] OUTPATIENT [id number] MARIFER HUMPHRIES 10/07/2016 10/07/2016 Active [facility] Ugo FRYE 03/03/2017 Active [facility] OUTPATIENT [id number] MARIFER HUMPHRIES 03/03/2017 03/03/2017 Active [facility] OUTPATIENT [id number] MARIFER HUMPHRIES 03/03/2017 Active [facility] Procedures Plan of Care Social History Assessment and Plan Family History Value Date Source Advance Directives Order Name Results Value Date Source
--- OUTSIDE RECORDS SUMMARY | 2017-03-06 12:47 | XMS REPORT | Clinical Summary ---
Author Author [facility] Organization [facility] Address Unknown Phone Unavailable Care Team Providers Care Specialty Development Consultant Name Role Phone PCP Unavailable Source Comments Some departments are not documenting in the electronic medical record. If you do not see the information that you expected, contact Release of Information in the Health Information Management department at [phone] for further assistance in locating additional records.[facility] Allergies No Known Allergies Current Medications Prescription Sig. Disp. Refills Start End Date Status Date pantoprazole DR Take 40 mg by mouth Active (PROTONIX) 40 mg tablet daily. allopurinol (ZYLOPRIM) Take 300 mg by mouth Active 300 mg tablet daily. Take with food. lactulose 10 gram/15 mL Take 20 g by mouth daily. Active oral solution cetirizine (ZYRTEC) 10 mg Take 10 mg by mouth every Active tablet morning. traMADol (ULTRAM) 50 mg Take 50 mg by mouth twice Active tablet daily. terazosin (HYTRIN) 5 mg Take 5 mg by mouth at Active capsule bedtime daily. propranolol (INDERAL) 40 Take 1 Tab by mouth twice 180 Tab 1 05/27/19 Active mg tablet daily. 17 vitamin A 10,000 unit Take 1 Cap by mouth 30 Cap 3 05/28/19 Active capsule daily. 17 zinc sulfate 220 mg (50 Take 1 Cap by mouth 90 Cap 3 07/11/19 Active mg elemental zinc) daily. 17 capsule rifAXIMin (XIFAXAN) 550 Take 1 tablet by mouth 60 tablet 5 11/29/19 Active mg tabletIndications: every 12 hours. 17 HEPATIC ENCEPHALOPATHY Indications: HEPATIC ENCEPHALOPATHY baclofen (LIORESAL) 10 mg Take 10 mg by mouth three Active tablet times daily. ketoconazole (NIZORAL) 2 Apply topically to Active % topical shampoo affected area once. Apply topically to affected area of damp skin, lather, leave on 5 minutes, and rinse. diphenhydrAMINE (BENADRYL Take 25 mg by mouth every Active ALLERGY) 25 mg tablet 6 hours as needed. METHYL SALICYLATE/MENTHOL Apply topically to Active (ICY HOT EXTRA STRENGTH affected area. TP) furosemide (LASIX) 40 mg Take 2 tablets by mouth 180 tablet 1 Active tablet every morning. 17 spironolactone Take 2 tablets by mouth 180 tablet 1 03/03/20 Active (ALDACTONE) 50 mg tablet daily. Take with food. 17 furosemide (LASIX) 40 mg Take 1 Tab by mouth every 90 Tab 1 05/27/19 03/03/20 Discontin tablet morning. 17 17 ued spironolactone Take 1 tablet by mouth 30 tablet 2 02/21/20 03/03/20 Discontin (ALDACTONE) 50 mg tablet daily. Take with food. 17 17 ued Active Problems Problem Noted Date Awaiting organ transplant 10/07/2016 Chronic hepatitis C without hepatic coma (HCC) 07/03/2016 Preop cardiovascular exam 07/02/2016 Last Assessment & Plan: The patient is scheduled for an echocardiogram as well as a stress test today for risk assessment. Recommendations to follow. Pre-transplant evaluation for liver transplant 06/24/2016 Encounters Date Type Specialty Care Team Description 03/03/2017 [facility] Radiology Zamzam Newton MD Arrived Encounter Halie Wang RN Lind, Ashley Collins, Zachary S, MD 03/03/2017 [facility] Lab Zamzam Newton MD Chronic viral hepatitis C Encounter (HCC) 03/03/2017 Office Visit Transplant Surgery Zamzam Newton MD Chronic hepatitis C without hepatic coma (HCC) (Primary Dx) 02/20/2017 Telephone Transplant Surgery Lala Xiao RN Other (call to ID) 01/01/2017 Orders Only Transplant Surgery Arvind Meza End-stage liver disease (HCC) 12/23/2016 Telephone Transplant Surgery Suyapa Parker RN Waitlist Maintenance from Last 3 Months Family History Medical History Relation Name Comments Stroke Paternal Grandfather Cancer Paternal Grandmother Relation Name Status Comments Paternal Grandfather Paternal Grandmother Social History Tobacco Use Types Packs/Day Years Used Date Never Smoker Smokeless Tobacco: Former Quit: User 04/03/2016 Alcohol Use Drinks/Week oz/Week Comments No 0 Standard 0.0 drinks or equivalent Sex Assigned at Date Recorded Not on file Last Filed Vital Signs Vital Sign Reading Time Taken Blood Pressure 110/58 03/03/2017 2:18 PM FRYER OPERATOR Pulse 63 03/03/2017 2:18 PM FRYER OPERATOR Temperature 36.3 C (97.3 F) 03/03/2017 11:29 AM FRYER OPERATOR Respiratory Rate 20 03/03/2017 8:50 AM FRYER OPERATOR Oxygen Saturation 98% 03/03/2017 2:18 PM FRYER OPERATOR Inhaled Oxygen - - Concentration Weight 119.7 kg (264 lb) 03/03/2017 11:29 AM FRYER OPERATOR Height 172.7 cm (5' 8") 03/03/2017 11:29 AM FRYER OPERATOR Body Mass Index 40.14 03/03/2017 11:29 AM FRYER OPERATOR Plan of Treatment Health Maintenance Due Date Last Done Comments PHYSICAL (COMPREHENSIVE) 1957 EXAM PERTUSSIS VACCINE 1961 TETANUS VACCINE 08/10/1967 DILATED EYE EXAM 1968 FOOT EXAM 1968 MICROALBUMIN 1968 COLORECTAL CANCER 2000 SCREENING SHINGLES VACCINE 2010 PREVNAR/PNEUMOVAX (#1) 08/10/2015 INFLUENZA VACCINE 11/11/2016 HBA1C 01/03/2017 07/03/2016, 05/27/2016 Results * IR ASPIRATION/DRAIN (03/03/2017 1:58 PM) Specimen Performing Laboratory [facility] RAD RESULTS Impressions 1.Successful ultrasound guided paracentesis. I, Froilan Dickerson M.D, the attending radiologist, was present for the critical and romo portions of the procedure with a midlevel, resident, and/or fellow participating.Overlapping portions were non romo and I was immediately available.I interpret the critical and romo portion of this procedure to have been needle access. @TT Approved by Loy Hanson M.D. on 03/03/2017 2:24 PM By my electronic signature, I attest that I have personally reviewed the images for this examination and formulated the interpretations and opinions expressed in this report Finalized by Froilan Dickerson M.D. on 03/04/2017 9:54 AM. Dictated by Loy Hanson M.D. on 03/03/2017 2:23 PM. Narrative Ultrasound-guided paracentesis CLINICAL INDICATION: Chronic hepatitis C with symptomatic ascites. MEDICATIONS: 5 mL subcutaneous Lidocaine 2% CHAR FILTER OPERATOR: García Dickerson M.D., Loy Hanson M.D. TECHNIQUE: Transverse real time images were obtained through the abdomen. The risks and benefits of this procedure were discussed and informed written consent was obtained prior to performing the procedure. The abdomen was then prepped and draped in usual sterile fashion.Limited ultrasound of the abdomen was performed.Under ultrasound guidance, a 5 Hebrew centesis needle was advanced into the peritoneal fluid collection and catheter advanced into the collection over the needle, and needle was removed. The catheter was connected to Vacutainer bottles and 1400 mL fluid was removed. There were no immediate complications of the procedure. No significant blood loss. Patient tolerated procedure well. FINDINGS:Free peritoneal fluid demonstrated on ultrasound. Procedure Note Interface, Radiant Results - 03/04/2017 9:57 AM FRYER OPERATOR Ultrasound-guided paracentesis CLINICAL INDICATION: Chronic hepatitis C with symptomatic ascites. MEDICATIONS: 5 mL subcutaneous Lidocaine 2% CHAR FILTER OPERATOR: García Dickerson M.D., Loy Hanson M.D. TECHNIQUE: Transverse real time images were obtained through the abdomen. The risks and benefits of this procedure were discussed and informed written consent was obtained prior to performing the procedure. The abdomen was then prepped and draped in usual sterile fashion. Limited ultrasound of the abdomen was performed. Under ultrasound guidance, a 5 Hebrew centesis needle was advanced into the peritoneal fluid collection and catheter advanced into the collection over the needle, and needle was removed. The catheter was connected to Vacutainer bottles and 1400 mL fluid was removed. There were no immediate complications of the procedure. No significant blood loss. Patient tolerated procedure well. FINDINGS: Free peritoneal fluid demonstrated on ultrasound. IMPRESSION 1. Successful ultrasound guided paracentesis. I, Froilan Dickerson M.D, the attending radiologist, was present for the critical and romo portions of the procedure with a midlevel, resident, and/or fellow participating. Overlapping portions were non romo and I was immediately available. I interpret the critical and romo portion of this procedure to have been needle access. @TT Approved by Loy Hanson M.D. on 03/03/2017 2:24 PM By my electronic signature, I attest that I have personally reviewed the images for this examination and formulated the interpretations and opinions expressed in this report Finalized by Froilan Dickerson M.D. on 03/04/2017 9:54 AM. Dictated by Loy Hanson M.D. on 03/03/2017 2:23 PM. * CELL COUNT W/DIFF-FLUIDS (03/03/2017 1:41 PM) Component Value Ref Range White Blood Cells,Fluid 550 /UL Red Blood Cells,Fluid 1580 /UL Segmented Neutrophils, 2 % Fluid Lymphocytes,Fluid 55 % Monocyte/Histo,Fluid 43 % Fluid Source PARACENTESIS FLUID Pathology CHRONIC INFLAMMATION Interpretation,Fluid HEMORRHAGIC FLUID Pathologist Signature INTERPRETED BY VANESSA VO M.D. By the PATH SIGNATURE ABOVE, I attest that I have personally formulated the final interpretation expressed in this report and that the above diagnosis is based upon my examination of the slides and/or other material indicated in this report. Specimen Performing Laboratory Peritoneal fluid - MAIN LAB Paracentesis Fluid [address] [place] [address] * VITAMIN A (03/03/2017 10:14 AM) Component Value Ref Range Vitamin A 9.0 (L) Comment: Reference range: 32.5 to 78.0 Unit: mcg/dL In this sample, the retinol (vitamin A) level indicates a severe deficiency. ADDITIONAL INFORMATION This test was developed and its performance characteristics determined by [facility] in a manner consistent with CLIA requirements. This test has not been cleared or approved by the U.S. Food and Drug Administration. [facility], [address] [place] [address] Specimen Performing Laboratory Blood REFERENCE LAB * ALPHA FETO PROTEIN (AFP) (03/03/2017 10:14 AM) Component Value Ref Range Alpha Feto Protein 9.8 0.0 - 15.0 NG/ML Specimen Performing Laboratory Blood MAIN LAB [address] [place] [id number] * PROTIME INR (PT) (03/03/2017 10:14 AM) Only the most recent of 2 results within the time period is included. Component Value Ref Range INR 1.6 (H) 0.8 - 1.2 Specimen Performing Laboratory Blood MAIN LAB [address] [place] [id number] * CBC AND DIFF (03/03/2017 10:14 AM) Only the most recent of 2 results within the time period is included. Component Value Ref Range White Blood Cells 3.8 (L) 4.5 - 11.0 K/UL RBC 3.16 (L) 4.4 - 5.5 M/UL Hemoglobin 11.9 (L) 13.5 - 16.5 GM/DL Hematocrit 34.4 (L) 40 - 50 % MCV 108.8 (H) 80 - 100 FL MCH 37.6 (H) 26 - 34 PG MCHC 34.6 32.0 - 36.0 G/DL RDW 16.5 (H) 11 - 15 % Platelet Count 49 (L) 150 - 400 K/UL MPV 9.8 7 - 11 FL Neutrophils 46 41 - 77 % Lymphocytes 44 24 - 44 % Monocytes 8 4 - 12 % Eosinophils 1 0 - 5 % Basophils 1 0 - 2 % Absolute Neutrophil Count 1.80 1.8 - 7.0 K/UL Absolute Lymph Count 1.70 1.0 - 4.8 K/UL Absolute Monocyte Count 0.30 0 - 0.80 K/UL Absolute Eosinophil Count 0.00 0 - 0.45 K/UL Absolute Basophil Count 0.00 0 - 0.20 K/UL Specimen Performing Laboratory Blood [facility] MAIN [facility] [address] [place] [address] * COMPREHENSIVE METABOLIC PANEL (03/03/2017 10:14 AM) Only the most recent of 2 results within the time period is included. Component Value Ref Range Sodium 142 137 - 147 MMOL/L Potassium 3.7 3.5 - 5.1 MMOL/L Chloride 110 98 - 110 MMOL/L Glucose 115 (H) 70 - 100 MG/DL Blood Urea Nitrogen 17 7 - 25 MG/DL Creatinine 1.19 0.4 - 1.24 MG/DL Calcium 8.5 8.5 - 10.6 MG/DL Total Protein 6.3 6.0 - 8.0 G/DL Total Bilirubin 3.1 (H) 0.3 - 1.2 MG/DL Albumin 2.5 (L) 3.5 - 5.0 G/DL Alk Phosphatase 179 (H) 25 - 110 U/L AST (SGOT) 74 (H) 7 - 40 U/L CO2 27 21 - 30 MMOL/L ALT (SGPT) 34 7 - 56 U/L Anion Gap 5 3 - 12 eGFR Non >60 >60 mL/min Comment: The eGFR is not validated for use in drug dosing adjustments. Continue to use estimated creatinine clearance per dosing reference text. Please contact the Clinical Pharmacist for questions. eGFR >60 >60 mL/min Comment: The eGFR is not validated for use in drug dosing adjustments. Continue to use estimated creatinine clearance per dosing reference text. Please contact the Clinical Pharmacist for questions. Specimen Performing Laboratory Blood [facility]IN [facility] [address] [place] [address] from Last 3 Months
--- OUTSIDE RECORDS SUMMARY | 2017-03-06 12:47 | XMS REPORT ---
Author Author JENNIFER BENAVIDES [facility] Address [address] [place] [address] Care Team Providers Care Electronic Equipment Installer Name Role Phone JENNIFER BENAVIDES Unavailable PROBLEMS Type Condition ICD9-CM Code [id number] Code Onset Dates Condition Status SNOMED Code Problem Incisional hernia without mention of obstruction or gangrene 553.21 Active 920845811 Problem Other specified personal risk factors, not elsewhere classified Z91.89 Active 743069537 Problem Essential hypertension I10 Active 73580346 Problem Alcoholic cirrhosis of liver with ascites K70.31 Active 167051420 Problem Intention tremor G25.2 Active 89253004 Problem Chronic hepatitis C without hepatic coma B18.2 Active 799626585 Problem Type 2 diabetes mellitus without complications E11.9 Active 504525722 Problem Other ascites R18.8 Active 906265975 Problem Allergic rhinitis, unspecified allergic rhinitis type J30.9 Active 88293032 ALLERGIES Unknown Allergies SOCIAL HISTORY No smoking Hx information available PLAN OF CARE VITAL SIGNS MEDICATIONS Unknown Medications RESULTS No Results PROCEDURES No Known procedures IMMUNIZATIONS No Known Immunizations
--- OUTSIDE RECORDS SUMMARY | 2017-03-06 12:47 | XMS REPORT | Encounter Summary ---
Author Author [facility] Organization [facility] Address Unknown Phone Unavailable Care Team Providers Care Manager International Name Role Phone PCP Unavailable Encounter Details Date Type Department Care Team Description 01/01/2017 Orders Only [facility] for Ar[facility]ind Meza End-stage liver disease Transplantation-Liver (HCC) Transplant Hep [address] [facility] [address] Social History Tobacco Use Types Packs/Day Years Used Date Never Smoker Smokeless Tobacco: Former Quit: User 04/03/2016 Alcohol Use Drinks/Week oz/Week Comments No 0 Standard 0.0 drinks or equivalent Sex Assigned at Date Recorded Not on file as of this encounter Functional Status Functional Status Response Date of Assessment Does the patient have a hearing impairment: No 10/07/2016 Does the patient have a visual impairment: Yes 10/07/2016 Does the patient have impaired ambulation: No 10/07/2016 Does the patient have an activity of daily living No 10/07/2016 (ADL) impairment: Does the patient have an instrumental activity of Yes 10/07/2016 daily living (IADL) impairment: Cognitive Status Response Date of Assessment Does the patient have a cognitive impairment: Yes 10/07/2016 as of this encounter Plan of Treatment Not on fileas of this encounter Results * COMPREHENSIVE METABOLIC PANEL (12/24/2016 10:16 AM) Component Value Ref Range Sodium 145 136 - 145 mmol/L Potassium 3.6 3.5 - 5.1 mmol/L Chloride 111 (H) 98 - 107 mmol/L CO2 23 22 - 29 mmol/L Calcium 8.4 (L) 8.8 - 10.2 mg/dL Blood Urea Nitrogen 20 8 - 23 mg/dL Creatinine 0.95 0.67 - 1.17 mg/dL Glucose 129 (H) 82 - 115 mg/dL Total Protein 5.5 (L) 6.6 - 8.7 Albumin 2.4 (L) 3.5 - 5.2 Total Bilirubin 2.7 (H) <=1.2 mg/dL Alk Phosphatase 187 (H) 40 - 129 U/L AST (SGOT) 96 U/L ALT (SGPT) 47 10 - 50 U/L eGFR Non >60 >0 mL/min/1.73 eGFR >60 >60 mL/min/1.73 Anion Gap 11 mmol/L Specimen Performing Laboratory Blood LABDE INTERFACE Narrative Outside Lab Verified by Arvind Powell on 01/01/2017. * CBC AND DIFF (12/24/2016 10:16 AM) Component Value Ref Range White Blood Cells 3.4 (L) 4.0 - 10.5 K/uL RBC 2.85 (L) 4.00 - 6.00 Hemoglobin 10.8 (L) 12.5 - 18.0 Hematocrit 31.3 (L) 36.0 - 52.0 % MCV 109.8 (H) 78.0 - 100.0 fL MCH 37.9 (H) 27.0 - 34.0 MCHC 34.5 31.0 - 37.0 g/dL RDW 14.9 (H) 11.6 - 14.8 % Platelet Count 39 (L) 150 - 450 K/uL Neutrophils 47 37 - 80 % Lymphocytes 43 10 - 50 % Monocytes 9 5 - 13 % Eosinophil 1 0 - 10 % Basophil 0 0 - 5 % Absolute Neutrophil Count 1.60 (L) 2.00 - 6.90 K/uL Absolute Lymph Count 1.47 1.00 - 3.40 K/uL Absolute Monocyte Count 0.32 0.10 - 1.30 K/uL Absolute Eosinophil Count 0.04 0.00 - 0.70 K/uL Absolute Basophil Count 0.01 0.00 - 0.20 K/uL Specimen Performing Laboratory Blood LABDE INTERFACE Narrative Outside Lab Verified by Arvind Powell on 01/01/2017. * PROTIME INR (PT) (12/24/2016 10:16 AM) Component Value Ref Range Protime 19.7 (H) 11.8 - 14.6 Seconds INR 1.7 (H) 0.9 - 1.2 Specimen Performing Laboratory Blood LABDE INTERFACE Narrative Outside Lab Verified by Arvind Powell on 01/01/2017. in this encounter Visit Diagnoses Diagnosis End-stage liver disease (HCC) Other sequelae of chronic liver disease in this encounter
--- OUTSIDE RECORDS SUMMARY | 2017-03-06 12:47 | XMS REPORT ---
Author Author JENNIFER BENAVIDES Organization [employer] Address Unknown Phone Unavailable Care Team Providers Care Car Driver Name Role Phone JENNIFER BENAVIDES CP Unavailable Allergies No Known Allergies Problems Problem Type Condition Code Onset Dates Condition Status Problem Chronic hepatitis C without mention of hepatic coma 070.54 Active Problem Pain in joint, pelvic region and thigh 719.45 Active Problem Incisional hernia without mention of obstruction or gangrene 553.21 Active Problem Other specified personal risk factors, not elsewhere classified Z91.89 Active Problem Chronic hepatitis C without hepatic coma B18.2 Active Problem Type 2 diabetes mellitus without complications E11.9 Active Problem Diabetes mellitus without mention of complication, type II or unspecified type, not stated as uncontrolled 250.00 Active Problem Pure hyperglyceridemia 272.1 Active Problem Essential hypertension I10 Active Problem HTN (hypertension) 401.9 Active Medications No Known Medications Results No Known Results Summary Purpose [employer] Submission
--- OUTSIDE RECORDS SUMMARY | 2017-03-06 12:47 | XMS REPORT | Encounter Summary ---
Author Author [facility] Organization [facility] Address Unknown Phone Unavailable Care Team Providers Care Sheriffs Name Role Phone PCP Unavailable Encounter Details Date Type Department Care Team Description 03/03/2017 Hospital [facility] Zamzam Newton MD Chronic viral hepatitis C Encounter [address] (HCC) [place] [address] [address] [place] [address] [phone] Social History Tobacco Use Types Packs/Day Years Used Date Never Smoker Smokeless Tobacco: Former Quit: User 04/03/2016 Alcohol Use Drinks/Week oz/Week Comments No 0 Standard 0.0 drinks or equivalent Sex Assigned at Date Recorded Not on file as of this encounter Functional Status Functional Status Response Date of Assessment Does the patient have a hearing impairment: No 03/03/2017 Does the patient have a visual impairment: Yes 03/03/2017 Does the patient have impaired ambulation: No 03/03/2017 Does the patient have an activity of daily living No 03/03/2017 (ADL) impairment: Does the patient have an instrumental activity of Yes 03/03/2017 daily living (IADL) impairment: Cognitive Status Response Date of Assessment Does the patient have a cognitive impairment: Yes 03/03/2017 as of this encounter Plan of Treatment Not on fileas of this encounter Results * VITAMIN A (03/03/2017 10:14 AM) Component Value Ref Range Vitamin A 9.0 (L) Comment: Reference range: 32.5 to 78.0 Unit: mcg/dL In this sample, the retinol (vitamin A) level indicates a severe deficiency. ADDITIONAL INFORMATION This test was developed and its performance characteristics determined by [facility] in a manner consistent with CLIA requirements. This test has not been cleared or approved by the U.S. Food and Drug Administration. [facility], [address], [place] [address] Specimen Performing Laboratory Blood REFERENCE LAB * ALPHA FETO PROTEIN (AFP) (03/03/2017 10:14 AM) Component Value Ref Range Alpha Feto Protein 9.8 0.0 - 15.0 NG/ML Specimen Performing Laboratory Blood MAIN LAB [address] [place] [address] * COMPREHENSIVE METABOLIC PANEL (03/03/2017 10:14 AM) Component Value Ref Range Sodium 142 137 [...] Pharmacist for questions. Specimen Performing Laboratory Blood MAIN LAB [address] [place] [address] * PROTIME INR (PT) (03/03/2017 10:14 AM) Component Value Ref Range INR 1.6 (H) 0.8 - 1.2 Specimen Performing Laboratory Blood MAIN LAB [address] [place] [address] * CBC AND DIFF (03/03/2017 10:14 AM) Component Value Ref Range White Blood [...] - 0.20 K/UL Specimen Performing Laboratory Blood MAIN LAB [address] [place] [address] in this encounter Visit Diagnoses Diagnosis Chronic hepatitis C without hepatic coma (HCC) Chronic hepatitis C without mention of hepatic coma in this encounter Admitting Diagnoses Diagnosis Chronic viral hepatitis C (HCC) Chronic viral hepatitis C in this encounter
--- OUTSIDE RECORDS SUMMARY | 2017-03-06 12:47 | XMS REPORT | Encounter Summary ---
Author Author [facility] Organization [facility] Address Unknown Phone Unavailable Care Team Providers Care Roll Trucker Name Role Phone PCP Unavailable Reason for Referral * Radiology Services Status Reason Specialty Diagnoses / Referred By Referred To Procedures Contact Contact No Auth Needed Radiology Diagnoses Zamzam Newton MD [facility] Ir Chronic [address] without hepatic [address] [place] coma (HCC) [place] [address] [address] [address] Phone: kSARIA IR [phone] ASPIRATION/DRAIN Fax: CT ABDOM [phone] PARACENTESIS DX/THER W/IMAGING GUIDANCE * Radiology Services Status Reason Specialty Diagnoses / Referred By Referred To Procedures Contact Contact No Auth Needed Radiology Diagnoses Zamzam Newton MD 2 Ir Chronic [address] without hepatic [address] [place] coma (HCC) [place] [address] P [address] Phone: kSARIA IR [phone] ASPIRATION/DRAIN Fax: CT ABD[facility] [phone] PARACENTESIS DX/THER W/IMAGING GUIDANCE Reason for Visit * Radiology Services Status Reason Specialty Diagnoses / Referred By Referred To Procedures Contact Contact No Auth Needed Radiology Diagnoses Zamzam Newton MD 2 Ir Chronic [address] without hepatic [address] [place] coma (HCC) [place] [address] [address] [address] Phone: kSARIA IR [phone] ASPIRATION/DRAIN Fax: CT [facility] [phone] PARACENTESIS DX/THER W/IMAGING GUIDANCE Encounter Details Date Type Department Care Team Description 03/03/2017 Hospital [facility] Zamzam Newton MD Arrived Encounter Hospital Radiology [address] [place] [address] [place] [address] [phone] Halie Balbuena RN L ind, Froilan Holland MD [address] [place] [address] [phone] Social History Tobacco Use Types Packs/Day Years Used Date Never Smoker Smokeless Tobacco: Former Quit: User 04/03/2016 Alcohol Use Drinks/Week oz/Week Comments No 0 Standard 0.0 drinks or equivalent Sex Assigned at Date Recorded Not on file as of this encounter Last Filed Vital Signs Vital Sign Reading Time Taken Blood Pressure 110/58 03/03/2017 2:18 PM SYSTEM DISPATCHER Pulse 63 03/03/2017 2:18 PM SYSTEM DISPATCHER Temperature 36.3 C (97.3 F) 03/03/2017 11:29 AM SYSTEM DISPATCHER Respiratory Rate - - Oxygen Saturation 98% 03/03/2017 2:18 PM SYSTEM DISPATCHER Inhaled Oxygen - - Concentration Weight 119.7 kg (264 lb) 03/03/2017 11:29 AM SYSTEM DISPATCHER Height 172.7 cm (5' 8") 03/03/2017 11:29 AM SYSTEM DISPATCHER Body Mass Index 40.14 03/03/2017 11:29 AM SYSTEM DISPATCHER in this encounter Functional Status Functional Status Response [...] impairment: Yes 03/03/2017 as of this encounter Discharge Instructions * Patient Instructions - Riri Pretty RN - 03/03/2017 11:17 AM SYSTEM DISPATCHER Formatting of this note may be different from the original. Paracentesis Your healthcare provider recommends that you have paracentesis. This is a procedure to remove extra fluid from your belly (abdomen). A needle is used to drain the fluid. A small sample of fluid may be taken and tested for problems. If the fluid buildup is causing discomfort or pain, all of the fluid may be drained. To do this, a tube is attached to the needle. The fluid is drained into a container that sits outside of the body. If symptoms are severe, paracentesis may be done as an emergency procedure. Otherwise, it will be scheduled ahead of time. Read on to learn more about paracentesis and how it works. Understanding ascites Many of the bodys organs, including the liver and intestines, are inside the belly (abdomen). The organs are covered in a thin membrane called the peritoneum.The peritoneum has 2 layers. It makes a fluid that allows the layers to glide smoothly past each other. If this fluid builds up in the belly, the condition is calledascites.Ascites causes pain and discomfort. It can also make it hard to breathe. Fluid can build up for a number of reasons. These include chronic liver disease (cirrhosis), heart or kidney failure, and cancer. Your provider can tell you more about the cause of your ascites. How paracentesis works The goal of paracentesis may be to help diagnose the cause of the excess fluid. Or, the goal may be to drain excess fluid from the abdomen. In some cases, fluid returns and the procedure needs to be repeated. Before the procedure Tell your provider about any medicines you are taking. This includes all prescription medicines, vsty-lft-[id number] medicines, street drugs, herbs, vitamins, and other supplements. Tell your provider about any allergies you have. Before the procedure begins, youll be asked to empty your bladder. This helps prevent injury to the bladder during the procedure. If needed, a thin tube (Bartlett catheter) may be placed into your bladder to drain urine during the procedure. This tube is removed after the procedure. An IV (intravenous) linemay beput into a vein in your arm or hand. This line supplies fluids and medicines. During the procedure You are awake during the procedure. An imaging method called ultrasound may be used to guide the procedure. It shows live images of the inside of your belly on a video screen. This helps the provider find the site of the excess fluid inside your belly and decide where to insert the needle. A numbing medicine (local anesthesia) is injected into your belly where the needle will be inserted. Once the skin is numb, the provider carefully inserts the needle into the belly. This causes the needle to fill with fluid. The needle may be removed with only a small sample of fluid. This sample is sent to a lab for testing. Getting a sample takes about 10 to 15 minutes. Or, a tube may be attached to the needle so that more of the excess fluid can be drained. The tube may be taped or stitched into place. This keeps it from pulling the needle out of your belly. How long it takes to drain all of the fluid varies for each person. In most cases, it takes about 30 minutes. Your provider will let you know if the procedure is expected to take longer than usual. Once all of the fluid is drained, the needle and tube are removed. Pressure is put on the puncture site to stop any fluid leakage or bleeding. A small bandage is placed over the puncture site. Albumin may be given during or after the procedure to prevent low blood pressure or kidney problems. After the procedure You may be taken to a recovery room to rest after the procedure. If you are in pain, you will be given medicine as needed. You will likely be sent home 1 to 2 hours after the procedure is done. When you leave the hospital, have an adult family member or friend drive you home. If you are staying in the hospital, you will return to your hospital room. Risks and possible complications of paracentesis This procedure is considered safe. But like all procedures, it carries some risks. These include the following: Bleeding Infection Injury to structures in the belly Fast drop in blood pressure Recovering at home If needed, your provider can prescribe or recommend pain medicines for you to take at home. Take these exactly as directed. If you stopped taking other medicines before the procedure, ask your provider when you can start them again. You may remove the bandage 24 hours after the procedure. Take it easy for 24 hours after the procedure. Avoid physical activity until your provider says its OK. Follow-up care Make a follow-up appointment with your provider as directed. During your follow- up visit, your provider will check your healing. Let your provider know how you are feeling. You can also discuss the cause of your ascites and if any more treatment is needed. When to seek medical care Call your healthcare provider if you notice any of the following after the procedure: A fever of 100.4F (38.0C) or higher Trouble breathing Pain that does not go away even after taking pain medicine Belly pain not caused by having the skin punctured Bleeding from the puncture site More than a small amount of fluid leakage from the puncture site Swollen belly Signs of infection at the puncture site. These include increased pain, redness, or swelling, as well as warmth or bad-smelling drainage. Blood in your urine Dizziness, lightheadedness, or fainting Date Last Reviewed: 10/12/201519997719-8360 [employer]. [address] [place] [address]. All rights reserved. This information is not intended as a substitute for professional medical care. Always follow your healthcare professional's instructions. in this encounter Progress Notes * Gissel Valencia, CANDY - 03/03/2017 2:10 PM SYSTEM DISPATCHER Discharge education given to the patient. Mr. Jay states that he understands all provided information and will call IR if he has any questions or concerns. in this encounter H&P Notes * Isis Forman APRN - 03/03/2017 11:04 AM SYSTEM DISPATCHER Formatting of this note may be different from the original. Pre Procedure History and Physical/Sedation Plan-OP Procedure Date: 03/03/2017 Planned Procedure(s): Ultrasound guided paracentesis Indication: ascites Chief Complaint: ascites History of Present Illness: Preet Jay is a 66 y.o. male. Pt states he is doing well today, denies complaints. Patient Active Problem List Diagnosis Date Noted Awaiting organ transplant 10/07/2016 Chronic hepatitis C without hepatic coma (HCC) 07/03/2016 Preop cardiovascular exam 07/02/2016 Pre-transplant evaluation for liver transplant 06/24/2016 Past Medical History: Diagnosis Date Arthritis Hypertension Preop cardiovascular exam 07/02/2016 No past surgical history on file. (Not in a hospital admission) No Known Allergies Social History: Social History Substance Use Topics Smoking status: Never Smoker Smokeless tobacco: Former User Quit date: 04/03/2016 Alcohol use No Family History Problem Relation Age of Onset Cancer Paternal Grandmother Stroke Paternal Grandfather Review of Systems All other systems reviewed and are negative. Previous Anesthetic/Sedation History: NA Physical Exam: Vital Signs: Last Filed In 24 Hours Vital Signs: 24 Hour Range BP: 117/58 (03/03 850) Temp: 36.4 C (97.6 F) (03/03 850) Pulse: 51 (03/03 850) SpO2: 99 % (03/03 850) Height: 172.7 cm (68") (03/03 850) BP: (117)/(58) Temp: [36.4 C (97.6 F)] Pulse: [51] SpO2: [99 %] General appearance: alert, cooperative and no distress Head and Neck: no abnormalities noted Mouth: no abnormalities noted Neurologic: Grossly normal Lungs: non-labored Heart: regular rate and rhythm Abdomen: soft, non-tender. Bowel sounds normal. No masses, no organomegaly, round, distended Extremities: extremities normal, atraumatic, no cyanosis or edema Airway: airway assessment performed Mallampati II (soft palate, uvula, fauces visible) Anesthesia Classification: ASA III (A patient with a severe systemic disease that limits activity, but is not incapacitating) Sedation/Medication Plan: Lidocaine Personal history of sedation complications: Denies adverse event. Family history of sedation complications: Denies adverse event. Medications for Reversal: None Discussion/Reviews: Physician has discussed risks and alternatives of this type of sedation and above planned procedures with patient NPO Status: Acceptable Status: N/A Lab/Radiology/Other Diagnostic Tests: Labs: Pertinent labs reviewed Isis Forman APRN Pager [phone] in this encounter Miscellaneous Notes * Procedures (Immed Post or Bedside) - Loy Hanson MD - 03/03/2017 1:14 PM SYSTEM DISPATCHER Immediate Post Procedure Note Date: 03/03/2017 Attending Physician: García Dickerson MD Performing Provider: Loy Hanson MD Consent: Consent obtained from patient. Time out performed: Consent obtained, correct patient verified, correct procedure verified, correct site verified, patient marked as necessary. Pre/Post Procedure Diagnosis/Indication: Symptomatic Ascites Anesthesia: Conscious Sedation Procedure(s): Paracentesis. Please see separate PACS dictation for further detail. Findings: small volume ascites Estimated Blood Loss: None/Negligible Specimen(s) Removed/Disposition: Clear yellow ascites. See dictation for volume removed. Complications: None Patient Tolerated Procedure: Well Post-Procedure Condition: Stable Loy Hanson MD in this encounter Plan of Treatment Not on fileas of this encounter Results * IR ASPIRATION/DRAIN (03/03/2017 1:58 PM) [...] ascites. MEDICATIONS: 5 mL subcutaneous Lidocaine 2% BARBER OR BEAUTY SHOP MANAGER: García Dickerson M.D., Brandon Custer M.D. TECHNIQUE: Transverse real time images were obtained through the abdomen. The risks and benefits of this procedure were discussed and informed written consent was obtained prior to performing the procedure. The abdomen was then prepped and draped in usual sterile fashion.Limited ultrasound of the abdomen was performed.Under ultrasound guidance, a 5 Djiboutian centesis needle was advanced into the peritoneal [...] Interface, Radiant Results - 03/04/2017 9:57 AM SYSTEM DISPATCHER Ultrasound-guided paracentesis CLINICAL INDICATION: Chronic hepatitis C with symptomatic ascites. MEDICATIONS: 5 mL subcutaneous Lidocaine 2% BARBER OR BEAUTY SHOP MANAGER: García Dickerson M.D., Loy Hanson M.D. TECHNIQUE: Transverse real time images were obtained through the abdomen. The risks and benefits of this procedure were discussed and informed written consent was obtained prior to performing the procedure. The abdomen was then prepped and draped in usual sterile fashion. Limited ultrasound of the abdomen was performed. Under ultrasound guidance, a 5 Djiboutian centesis needle was advanced into the peritoneal [...] fluid - MAIN LAB Paracentesis Fluid [address] [place] [address] in this encounter Visit Diagnoses Diagnosis Chronic hepatitis C without hepatic coma (HCC) Chronic hepatitis C without mention of hepatic coma in this encounter
--- OUTSIDE RECORDS SUMMARY | 2017-03-06 12:47 | XMS REPORT | Encounter Summary ---
Author Author [facility] Organization [facility] Address Unknown Phone Unavailable Care Team Providers Care Traffic Coordinator Name Role Phone PCP Unavailable Reason for Visit * Reason Comments Other call to [place] Encounter Details Date Type Department Care Team Description 02/20/2017 Telephone Center for Lala Xiao RN Other (call to [place]) Transplantation-Liver Transplant Hep [address] [facility] [place] [address] Social History Tobacco Use Types Packs/Day Years [...] impairment: Yes 10/07/2016 as of this encounter Miscellaneous Notes * Telephone Encounter - Lala Xiao RN - 02/20/2017 4:32 PM CHORAL TEACHER Spoke with [facility] staff. Advised to please start spironolactone 50 mg every day. Script sent. They v/u. * Telephone Encounter - Lala Xiao RN - 02/20/2017 2:29 PM CHORAL TEACHER Per Deya, Pt had some abdominal pain and BLE edema and abdominal swelling. I received the utrasound report his facility did. He does have some ascites. Pt has never required a paracentesis. His appetite is good. Only takes 40 mg Lasix. I reiterated the need to follow a low sodium diet. Moved his March appt up to March 03 @ 0900. Message sent to Dr. Newton to advise of any changes between now and clinic visit. in this encounter Plan of Treatment Not on fileas of this encounter Visit Diagnoses Not on filein this encounter
--- OUTSIDE RECORDS SUMMARY | 2017-03-06 12:47 | XMS REPORT ---
Author Author JENNIFER BENAVIDES Organization [employer] Address Unknown Phone Unavailable Care Team Providers Care Mine Wirer Name Role Phone JENNIFER BENAVIDES CP Unavailable Allergies No Known Allergies Problems Problem Type Condition Code Onset Dates Condition Status Problem Incisional hernia without mention of obstruction or gangrene 553.21 Active Problem Allergic rhinitis, unspecified allergic rhinitis type J30.9 Active Problem Other ascites R18.8 Active Problem Intention tremor G25.2 Active Problem Chronic hepatitis C without hepatic coma B18.2 Active Problem Essential hypertension I10 Active Problem Type 2 diabetes mellitus without complications E11.9 Active Problem Other specified personal risk factors, not elsewhere classified Z91.89 Active Medications Medication Code System Code Instructions Start Date End Date Status Dosage Metoprolol Tartrate [facility] [id number] 50 mg Orally Twice a day .5-1 tablet . 5 tab am 1 tab hs Results No Known Results Summary Purpose [employer] Submission
--- OUTSIDE RECORDS SUMMARY | 2017-03-06 12:47 | XMS REPORT ---
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 Active 673597319 Problem Intention tremor G25.2 Active 08017161 Problem Type 2 diabetes mellitus without complications E11.9 Active 058744596 Problem Other specified personal risk factors, not elsewhere classified Z91.89 Active 217197193 Problem Allergic rhinitis, unspecified allergic rhinitis type J30.9 Active 55259860 Problem Other ascites R18.8 Active 580299378 ALLERGIES Unknown Allergies SOCIAL HISTORY No smoking Hx information available PLAN OF CARE VITAL SIGNS MEDICATIONS Medication Instructions Dosage Frequency Start Date End Date Duration Status Xifaxan 550 MG Orally Twice a day 1 tablet 12h 17 Sep, 2015 Active RESULTS No Results PROCEDURES No Known procedures IMMUNIZATIONS No Known Immunizations
--- OUTSIDE RECORDS SUMMARY | 2017-03-06 12:47 | XMS REPORT | Encounter Summary ---
Author Author [facility] Organization [facility] Address Unknown Phone Unavailable Care Team Providers Care Piano Accompanist Name Role Phone PCP Unavailable Reason for Referral * Test Status Reason Specialty Diagnoses / Referred By Referred To Procedures Contact Contact New Request Diagnoses Zamzam Newton MD Chronic [address] without hepatic [place] [address] coma (HCC) [place] [address] [employer] Phone: 2-D + DOPPLER [phone] ECHOCARDIOGRAM * Radiology Services Status Reason Specialty Diagnoses / Referred By Referred To Procedures Contact Contact No Auth Needed Radiology Diagnoses Zamzam Newton MD [facility] Chronic [address] FLO[address] without hepatic [place] [address] [place], [place] coma (HCC) [place] [address] [address] [id number] Phone: [employer] IR [phone] ASPIRATION/DRAIN Fax: [place] ABDOM [phone] PARACENTESIS DX/THER W/IMAGING GUIDANCE Reason for Visit * Reason Comments Hepatitis C Encounter Details Date Type Department Care Team Description 03/03/2017 Office Visit Center for Zamzam Newton MD Chronic hepatitis C Transplantation-Liver [address] without hepatic coma Transplant Hep [place] [address] (HCC) (Primary Dx) [address] [place] [address] [facility] [phone] [address] Social History Tobacco Use Types Packs/Day Years Used Date Never Smoker Smokeless Tobacco: Former Quit: User 04/03/2016 Alcohol Use Drinks/Week oz/Week Comments No 0 Standard 0.0 drinks or equivalent Sex Assigned at Date Recorded Not on file as of this encounter Last Filed Vital Signs Vital Sign Reading Time Taken Blood Pressure 117/58 03/03/2017 8:50 AM MAIL MACHINE OPERATOR Pulse 51 03/03/2017 8:50 AM MAIL MACHINE OPERATOR Temperature 36.4 C (97.6 F) 03/03/2017 8:50 AM MAIL MACHINE OPERATOR Respiratory Rate 20 03/03/2017 8:50 AM MAIL MACHINE OPERATOR Oxygen Saturation 99% 03/03/2017 8:50 AM MAIL MACHINE OPERATOR Inhaled Oxygen - - Concentration Weight 119.9 kg (264 lb 6.4 oz) 03/03/2017 8:50 AM MAIL MACHINE OPERATOR Height 172.7 cm (5' 8") 03/03/2017 8:50 AM MAIL MACHINE OPERATOR Body Mass Index 40.2 03/03/2017 8:50 AM MAIL MACHINE OPERATOR in this encounter Functional Status Functional Status [...] impairment: Yes 03/03/2017 as of this encounter Instructions * Patient Instructions - Lala Xiao RN - 03/03/2017 9:00 AM MAIL MACHINE OPERATOR 03/03/17 clinic visit Schedule/Orders 1. Return to clinic in 4 months 2. Labs today 3. Echocardiogram same day as return appointment. 4. Please print 2 AVS for patient's sister. 5. Please send to 2nd floor interventional radiology after labs. Patient instructions: 1. Please continue Vitamin A 10,000 units every day. We are rechecking a level today. 2. Please increase furosemide to 80 mg per day. A new script has been sent to your pharmacy. 3. Please increase spironolactone to 100 mg per day. A new script has been sent to your pharmacy. 4. Please keep your ultrasound appointment on April 07. Please do not hesitate to contact me at [phone]. I am here to answer your questions and concerns and support you and your support person(s) through this process. Please ALWAYS let me know if you have labs or imaging done outside of [facility] so I can promptly request these results. Thank you for your cooperation in this matter to best provide quality care to you. If waitlisted, Evaluation due date: June 2017 with SW, pharmacy, nutrition, finance. Lala Xiao RN in this encounter Progress Notes * Zamzam Newton MD - 03/03/2017 9:00 AM MAIL MACHINE OPERATOR CHIEF COMPLAINT/PURPOSE FOR VISIT: Routine followup for patient listed for liver transplantation. HISTORY OF PRESENT ILLNESS: Mr. Jay is a very pleasant 66-year-old gentleman with advanced liver disease secondary to chronic hepatitis C virus infection that has been manifested primarily with symptoms of hepatic encephalopathy. He also has issues with developing and evolving portal hypertensive changes including lower extremity edema and ascites. There have been no other worrisome changes to his health, though he did have a recent exacerbation of hepatic encephalopathy that did require emergency room visit. REVIEW OF SYSTEMS: A 10-point review of systems is performed with the exceptions noted in the HPI is otherwise unremarkable. PHYSICAL EXAMINATION: GENERAL: Patient is alert, interactive, and appropriate, no acute distress. HEENT: Pupils equal, round, and reactive. EOMI. There is no scleral icterus. RESPIRATORY: Normal breath sounds noted in all lung gibbs. No adventitious sounds. CARDIOVASCULAR: Heart regular rate and rhythm. ABDOMEN: Moderately distended. Ascites present. EXTREMITIES: Full range of motion. No clubbing or cyanosis. 2+ edema of the lower extremities bilaterally. NEUROLOGIC: Grossly nonfocal. No asterixis. No tremor. IMPRESSION/REPORT/PLAN #1. Cirrhotic stage liver disease secondary to chronic hepatitis C virus infection: Mr. Jay' overall liver function has remained relatively stable. His MELD score updated today is 18 . He remains actively listed for transplant. There are no barriers to proceeding should an organ become available. #2. Progressive ascites and edema: We are increasing his diuretic regimen today to a dose of spironolactone of 100 mg per day with an increase of furosemide to 80 mg once per day. We are also referring him today for a paracentesis to be performed in Interventional Radiology. #3. Screening for esophageal varices: Currently up to date. #4. Screening for hepatocellular carcinoma: Ultrasound performed in September of this year was without worrisome lesions. * Ayala Lucas RD - 03/03/2017 9:00 AM MAIL MACHINE OPERATOR Liver Transplant/Hepatology Clinic Nutrition Referral Note MD referral received on 03/03/17 for medical nutrition therapy services. Met with pt in clinic. Pt reported: Transplant Liver Nutrition Questionnaire Weight: 119.9 kg (264 lb 6.4 oz) Have you recently lost weight without trying?: No Have you noticed a decrease in muscle mass?: No Have you been eating poorly due to decreased appetite?: No Are you following any special diets?: Low Sodium How would you rate your compliance with your specialized diet?: F - I follow the diet as prescribed less than 60% of the time Do you have any of the following conditions?: Overweight/Obesity, Ascites ( swelling in the belly) 66 yo M with PMH of HCV and ETOH abuse, liver disease c/b HE, now has developed ascites. Pt admits to non compliance with low sodium diet due to that he is living at an assisted living facility and they have not been providing a low sodium diet, in addition he often goes out to eat with other residents and will eat things like lao, chilean and pizza. Encouraged pt to be more mindful to be eating the food at the living facility - even though it is probably still high in sodium it is still going to be lower than the places he is choosing to go out to eat. Pt states he has a fridge in his room, encouraged him to keep some breakfast foods in it that are low in sodium (ie yogurt, pre hard boiled eggs, low sodium mozzarella cheese sticks etc). This way at least 1 meal in the day would be lower calorie and lower sodium. Pt voiced understanding, however he didn't seem keen on my ideas. He asked that I call the facility and try to get him on a low sodium diet. RD will follow up with this. [facility] [place]. Time Spent with Patient (minutes): 15 minutes Goals: reduced sodium/2 g sodium diet, reduced calorie diet, maintain fluid balance Ayala Lucas, MS, RD, LD *3988 in this encounter Plan of Treatment Name Priority Associated Diagnoses Order Schedule 2-D + DOPPLER ECHOCARDIOGRAM Routine Chronic hepatitis C Expected: 06/11, without hepatic coma Expires: 03/03/2018 (HCC) as of this encounter Results * IR ASPIRATION/DRAIN [...] ascites. MEDICATIONS: 5 mL subcutaneous Lidocaine 2% BOOK CANVASSER: García Dickerson M.D., Loy Hanson M.D. TECHNIQUE: Transverse real time images were obtained through the abdomen. The risks and benefits of this procedure were discussed and informed written consent was obtained prior to performing the procedure. The abdomen was then prepped and draped in usual sterile fashion.Limited ultrasound of the abdomen was performed.Under ultrasound guidance, a 5 Greenlandic centesis needle was advanced into the peritoneal [...] Interface, Radiant Results - 03/04/2017 9:57 AM MAIL MACHINE OPERATOR Ultrasound-guided paracentesis CLINICAL INDICATION: Chronic hepatitis C with symptomatic ascites. MEDICATIONS: 5 mL subcutaneous Lidocaine 2% BOOK CANVASSER: García Dickerson M.D., Brandon Custer M.D. TECHNIQUE: Transverse real time images were obtained through the abdomen. The risks and benefits of this procedure were discussed and informed written consent was obtained prior to performing the procedure. The abdomen was then prepped and draped in usual sterile fashion. Limited ultrasound of the abdomen was performed. Under ultrasound guidance, a 5 Greenlandic centesis needle was advanced into the peritoneal [...] Hanson M.D. on 03/03/2017 2:23 PM. * VITAMIN A (03/03/2017 10:14 AM) Component Value Ref Range Vitamin A 9.0 (L) Comment: Reference range: 32.5 to 78.0 Unit: mcg/dL In this sample, the retinol (vitamin A) level indicates a severe deficiency. ADDITIONAL INFORMATION This test was developed and its performance characteristics determined by [facility] in a manner consistent with CLIA requirements. This test has not been cleared or approved by the U.S. Food and Drug Administration. [facility], [address] [place] [address] Specimen Performing Laboratory Blood REFERENCE LAB * ALPHA FETO PROTEIN (AFP) (03/03/2017 10:14 AM) Component Value Ref Range Alpha Feto Protein 9.8 0.0 - 15.0 NG/ML Specimen Performing Laboratory Blood [facility] [address] [place] [address] * COMPREHENSIVE METABOLIC PANEL (03/03/2017 10:14 AM) [...] Specimen Performing Laboratory Blood MAIN LAB [address] [place] [address] * PROTIME INR (PT) (03/03/2017 10:14 AM) Component Value Ref Range INR 1.6 (H) 0.8 - 1.2 Specimen Performing Laboratory Blood MAIN LAB [address] [place] [address] * CBC AND DIFF (03/03/2017 10:14 AM) [...] Performing Laboratory Blood [facility] [address] [place] [address] in this encounter Visit Diagnoses Diagnosis Chronic hepatitis C without hepatic coma (HCC) - Primary Chronic hepatitis C without mention of hepatic coma in this encounter
--- OUTSIDE RECORDS SUMMARY | 2017-03-06 12:47 | XMS REPORT ---
Author Author JENNIFER BENAVIDES Organization [employer] Address Unknown Phone Unavailable Care Team Providers Care Invisible Braces Orthodontist Name Role Phone JENNIFER BENAVIDES CP Unavailable Allergies No Known Allergies Problems Problem Type Condition Code Onset Dates Condition Status Problem Incisional hernia without mention of obstruction or gangrene 553.21 Active Assessment Chronic hepatitis C with hepatic coma B18.2 Active Problem Allergic rhinitis, unspecified allergic rhinitis type J30.9 Active Problem Other ascites R18.8 Active Problem Intention tremor G25.2 Active Problem Chronic hepatitis C without hepatic coma B18.2 Active Problem Essential hypertension I10 Active Problem Type 2 diabetes mellitus without complications E11.9 Active Problem Other specified personal risk factors, not elsewhere classified Z91.89 Active Medications No Known Medications Results No Known Results Summary Purpose [employer] Submission
--- OUTSIDE RECORDS SUMMARY | 2017-03-06 12:47 | XMS REPORT | Encounter Summary ---
Author Author [facility] Organization [facility] Address Unknown Phone Unavailable Care Team Providers Care Medical Sonographer Name Role Phone PCP Unavailable Reason for Visit * Reason Comments Waitlist Maintenance Encounter Details Date Type Department Care Team Description 12/23/2016 Telephone Center for Suyapa Parker RN Waitlist Maintenance Transplantation-Liver Transplant Hep [address] [facility] [place] [address] Social History Tobacco Use Types Packs/Day Years [...] encounter Miscellaneous Notes * Telephone Encounter - Suyapa Parker RN - 12/23/2016 11:55 AM CDT Contacted pt to advise he is due for waitlist update and labwork. Spoke with pt' s sister. She will take him to [facility] in [place], [place] sometime later this week. Orders faxed. Will follow results. Suyapa Parker RN in this encounter Plan of Treatment Not on fileas of this encounter Results * PROTIME INR (PT) (12/24/2016 10:16 AM) Component Value Ref Range Protime 19.7 (H) 11.8 - 14.6 Seconds INR 1.7 (H) 0.9 - 1.2 Specimen Performing Laboratory Blood LABDE INTERFACE Narrative Outside Lab Verified by Arvind Powell on 01/01/2017. * COMPREHENSIVE METABOLIC PANEL (12/24/2016 10:16 AM) [...] Visit Diagnoses Diagnosis End-stage liver disease (HCC) - Primary Other sequelae of chronic liver disease in this encounter
--- OUTSIDE RECORDS SUMMARY | 2017-03-06 12:48 | XMS REPORT ---
Author Author JENNIFER BENAVIDES [facility] [employer] Address Unknown Phone Unavailable Care Team Providers Care Pediatric Physical Therapy Assistant Name Role Phone JENNIFER BENAVIDES CP Unavailable Allergies, Adverse Reactions, Alerts Substance Reaction Event Type N.K.D.A. Info Not Available Non Drug Allergy Problems Problem Type Condition Code Onset Dates Condition Status Problem Pain in joint, pelvic region and thigh 719.45 Active Problem Diabetes mellitus without mention of complication, type II or unspecified type, not stated as uncontrolled 250.00 Active Problem Pure hyperglyceridemia 272.1 Active Problem Other ascites R18.8 Active Problem Type 2 diabetes mellitus without complications E11.9 Active Problem Allergic rhinitis, unspecified allergic rhinitis type J30.9 Active Problem Essential hypertension I10 Active Problem HTN (hypertension) 401.9 Active Problem Other specified personal risk factors, not elsewhere classified Z91.89 Active Problem Chronic hepatitis C without hepatic coma B18.2 Active Assessment Chronic hepatitis C without hepatic coma B18.2 Active Problem Chronic hepatitis C without mention of hepatic coma 070.54 Active Problem Incisional hernia without mention of obstruction or gangrene 553.21 Active Medications Medication Code System Code Instructions Start Date End Date Status Dosage Allopurinol [facility] 83496213861 300MG Orally Once a day 1 tablet Metoprolol Tartrate [facility] [address]-49 100 MG Orally Twice a day October 30, 2014 .5-1 tablet . 5 tab am 1 tab hs ZyrTEC ND 0 10 mg Orally Once a day July 24, 2015 1 tablet as needed Spironolactone [facility] [address]-97 50 mg Orally Once a day July 24, 2015 1-2 tablet 1 tqb qam x 5 d then 2 tab q am Pantoprazole Sodium [facility] 14948836197 40MG Orally Once a day 1 tablet Terazosin HCl [facility] 39605414128 5MG TAKE ONE CAPSULE BY MOUTH ONCE DAILY Meloxicam [facility] 98056475665 15MG Orally Once a day 1 tablet Hydrochlorothiazide [facility] 40124607779 25MG Orally Once a day TAKE ONE-HALF TABLET Procedures Procedure Coding System Code Date Office Visit, Est Pt., Level 3 CPT-4 08837 2015 Vital Signs Date/Time: 2015 Temperature 98.1 F Weight 283.1 lbs Height 69 in BMI 41.80 Index Blood Pressure Diastolic 68 mmHg Blood Pressure Systolic 110 mmHg Cardiac Monitoring Heart Rate 68 bpm Results No Known Results Summary Purpose [employer] Submission
--- OUTSIDE RECORDS SUMMARY | 2017-03-06 12:48 | XMS REPORT ---
Author Author JENNIFER BENAVIDES Organization [employer] Address Unknown Phone Unavailable Care Team Providers Care Movie Actor Name Role Phone JENNIFER BENAVIDES CP Unavailable Allergies No Known Allergies Problems Problem Type Condition ICD-9 Code Onset Dates Condition Status Problem Diabetes mellitus without mention of complication, type II or unspecified type, not stated as uncontrolled 250.00 Active Problem Pure hyperglyceridemia 272.1 Active Problem HTN (hypertension) 401.9 Active Problem Chronic hepatitis C without mention of hepatic coma 070.54 Active Problem Pain in joint, pelvic region and thigh 719.45 Active Problem Incisional hernia without mention of obstruction or gangrene 553.21 Active Medications Medication Code System Code Instructions Start Date End Date Status Dosage Pantoprazole Sodium [facility] [address]-20 40 MG Orally Once a day Dec 29, 2014 1 tablet Results No Known Results Summary Purpose [employer] Submission
--- OUTSIDE RECORDS SUMMARY | 2017-03-06 12:48 | XMS REPORT ---
Author Author KATHLEEN CHENG [facility] [employer] Address Unknown Phone Unavailable Care Team Providers Care Stone Splitter Name Role Phone KATHLEEN CHENG CP Unavailable Allergies No Known Allergies Problems Problem Type Condition Code Onset Dates Condition Status Problem Diabetes [...] of obstruction or gangrene 553.21 Active Medications No Known Medications Results No Known Results Summary Purpose [employer] Submission
--- OUTSIDE RECORDS SUMMARY | 2017-03-06 12:48 | XMS REPORT ---
Author Author JENNIFER BENAVIDES Organization [employer] Address Unknown Phone Unavailable Care Team Providers Care Salesperson Corsets Name Role Phone JENNIFER BENAVIDES CP Unavailable Allergies No Known Allergies Problems Problem Type Condition Code Onset Dates Condition Status Problem Diabetes mellitus without mention of complication, type II or unspecified type, not stated as uncontrolled 250.00 Active Problem Pure hyperglyceridemia 272.1 Active Problem HTN (hypertension) 401.9 Active Problem Chronic hepatitis C without mention of hepatic coma 070.54 Active Assessment Chronic hepatitis C without mention of hepatic coma 070.54 Active Problem Pain in joint, pelvic region and thigh 719.45 Active Problem Incisional hernia without mention of obstruction or gangrene 553.21 Active Medications No Known Medications Procedures Procedure Coding System Code Date PROTHROMBIN TIME CPT-4 30694 Feb 27, 2015 HIV-1/HIV-2, SINGLE ASSAY CPT-4 82587 Feb 27, 2015 COMPLETE CBC W/AUTO DIFF WBC CPT-4 42906 Feb 27, 2015 ALANINE AMINO (ALT) (SGPT) CPT-4 77247 Feb 27, 2015 ASSAY OF HAPTOGLOBIN, QUANT CPT-4 15283 Feb 27, 2015 DRUG SCREEN NON TLC DEVICES CPT-4 37187 Feb 27, 2015 BILIRUBIN, TOTAL CPT-4 42225 Feb 27, 2015 GENOTYPE, DNA, HEPATITIS C CPT-4 18853 Feb 27, 2015 VENIPUNCT, ROUTINE* CPT-4 99560 Feb 27, 2015 ASSAY OF GGT CPT-4 91470 Feb 27, 2015 URINALYSIS, AUTO, W/O SCOPE CPT-4 35840 Feb 27, 2015 ASSAY OF APOLIPOPROTEIN CPT-4 76180 Feb 27, 2015 ASSAY, NEPHELOMETRY NOT SPEC CPT-4 81692 Feb 27, 2015 Results Name Result Date Reference Range Unit Abnormality Flag URINE DRUG SCREEN (IN HOUSE) Summary Purpose [employer] Submission
--- OUTSIDE RECORDS SUMMARY | 2017-03-06 12:48 | XMS REPORT ---
Author Author JENNIFER BENAVIDES Organization [employer] Address Unknown Phone Unavailable Care Team Providers Care Ticket Writer Name Role Phone JENNIFER BENAVIDES CP Unavailable Allergies No Known Allergies Problems Problem Type Condition Code Onset Dates Condition Status Problem Chronic hepatitis C without mention of hepatic coma 070.54 Active Problem Pain in joint, pelvic region and thigh 719.45 Active Problem Incisional hernia without mention of obstruction or gangrene 553.21 Active Assessment Chronic hepatitis C without hepatic coma B18.2 Active Problem Other specified personal risk factors, [...] (hypertension) 401.9 Active Medications No Known Medications Procedures Procedure Coding System Code Date DRUG SCREEN CLASS LIST A CPT-4 32280 May 15, 2015 DRUG SCREEN NON TLC DEVICES CPT-4 41591 May 15, 2015 Results Name Result Date Reference Range Unit Abnormality Flag URINE DRUG SCREEN (IN HOUSE) ----MDMA neg [id number] ----PCP neg [id number] ----BENZO neg [id number] ----OPIATE neg [id number] ----THC neg [id number] ----MTD neg [id number] ----OXY neg [id number] ----BAR neg [id number] ----TCA neg [id number] ----MAMP neg [id number] ----Exp date [id number] ----Control + [id number] ----COCAINE neg [id number] ----AMPH neg [id number] Summary Purpose [employer] Submission
--- OUTSIDE RECORDS SUMMARY | 2017-03-06 12:48 | XMS REPORT ---
Author Author JENNIFER BENAVIDES [facility] [employer] Address Unknown Phone Unavailable Care Team Providers Care Assistant Vice President Name Role Phone JENNIFER BENAVIDES CP Unavailable Allergies, Adverse Reactions, Alerts Substance Reaction Event Type N.K.D.A. Info Not Available Non Drug Allergy Problems Problem Type Condition Code Onset Dates Condition Status Assessment Encounter for immunization Z23 Active Problem Diabetes mellitus without mention of complication, type II or unspecified type, not stated as uncontrolled 250.00 Active Problem Pure hyperglyceridemia 272.1 Active Problem HTN (hypertension) 401.9 Active Problem Chronic hepatitis C without mention of hepatic coma 070.54 Active Assessment Ingrowing toenail of left foot L60.0 Active Problem Pain in joint, pelvic region and thigh 719.45 Active Problem Incisional hernia without mention of obstruction or gangrene 553.21 Active Medications Medication Code System Code Instructions Start Date End Date Status Dosage Meloxicam [facility] [address]-41 15 MG Orally Once a day Take 1 Tablet Terazosin HCl [facility] [address]-21 5 MG Orally Once a day Dec 25, 2014 1 capsule Allopurinol [facility] [address]-82 300 MG Orally Once a day 1 tablet Hydrochlorothiazide [facility] [address]-97 25 MG Orally Once a day June 20, 2014 take 0.5 tablet Pantoprazole Sodium [facility] [address]-58 40 MG Orally Once a day Dec 29, 2014 1 tablet Metoprolol Tartrate [facility] [address]-01 100 MG Orally Twice a day October 30, 2014 .5-1 tablet . 5 tab am 1 tab hs Procedures Procedure Coding System Code Date FLUARIX QUAD (3 & UP)--2014 CPT-4 06206 Jan 18, 2015 SINGLE IMMUNIZATION ADMIN CPT-4 53292 Jan 18, 2015 REMOVAL OF NAIL BED CPT-4 47797 Jan 18, 2015 Vital Signs Date/Time: Jan 18, 2015 Temperature 98.1 F Weight 277.2 lbs Height 69 in BMI 40.93 Index Blood Pressure Diastolic 72 mmHg Blood Pressure Systolic 128 mmHg Cardiac Monitoring Heart Rate 76 bpm Results No Known Results Immunizations Vaccine Administration Date FLUARIX QUAD (3 & UP)-GSK-2014Jan 18, 2015 Summary Purpose [employer] Submission
--- OUTSIDE RECORDS SUMMARY | 2017-03-06 12:48 | XMS REPORT ---
Author Author NACHO ARRIAGA Organization [facility] Address [address] [place] [address] Care Team Providers Care Merchandise Pickup/Receiving Associate Name Role Phone NACHO ARRIAGA Unavailable PROBLEMS Type Condition ICD9-CM Code [id number] Code Onset Dates Condition Status SNOMED Code Problem Incisional hernia without mention of obstruction or gangrene 553.21 Active 287969144 Problem Other specified personal risk factors, not elsewhere classified Z91.89 Active 243146934 Problem Essential hypertension I10 Active 28276364 Problem Alcoholic cirrhosis of liver with ascites K70.31 Active 392185625 Problem Intention tremor G25.2 Active 45306540 Problem Chronic hepatitis C without hepatic coma B18.2 Active 850946311 Problem Type 2 diabetes mellitus without complications E11.9 Active 478091122 Problem Other ascites R18.8 Active 386986940 Problem Allergic rhinitis, unspecified allergic rhinitis type J30.9 Active 50098573 ALLERGIES Unknown Allergies SOCIAL HISTORY No smoking Hx information available PLAN OF CARE VITAL SIGNS MEDICATIONS Unknown Medications RESULTS No Results PROCEDURES No Known procedures IMMUNIZATIONS No Known Immunizations
--- OUTSIDE RECORDS SUMMARY | 2017-03-06 12:48 | XMS REPORT ---
Author Author JENNIFER BENAVIDES Organization [employer] Address Unknown Phone Unavailable Care Team Providers Care Custom Van Converter Name Role Phone JENNIFER BENAVIDES CP Unavailable [...] Instructions Start Date End Date Status Dosage Propranolol HCl [facility][NOTE 3] 71943583467 20 mg Orally Twice a day 1 tablet Results No Known Results Summary Purpose [employer]ClinicalWorks Submission
--- OUTSIDE RECORDS SUMMARY | 2017-03-06 12:48 | XMS REPORT ---
Author Author JENNIFER BENAVIDES Organization [employer] Address Unknown Phone Unavailable Care Team Providers Care Planning Consultant Name Role Phone JENNIFER BENAVIDES CP Unavailable [...] Active Problem HTN (hypertension) 401.9 Active Medications Medication Code System Code Instructions Start Date End Date Status Dosage Metoprolol Tartrate [facility] [address]-78 100 MG Orally Twice a day October 30, 2014 .5-1 tablet . 5 tab am 1 tab hs Results No Known Results Summary Purpose [employer]Clinical[employer] Submission
--- OUTSIDE RECORDS SUMMARY | 2017-03-06 12:48 | XMS REPORT ---
Author Author JENNIFER BENAVIDES Organization [employer] Address Unknown Phone Unavailable Care Team Providers Care Engineering Design Supervisor Name Role Phone JENNIFER BENAVIDES CP Unavailable [...] Instructions Start Date End Date Status Dosage pantoprazole NDC 0 40 mg Take 1 Tablet by Oral route 1 time per day Results No Known Results Summary Purpose [employer] Submission
--- OUTSIDE RECORDS SUMMARY | 2017-03-06 12:48 | XMS REPORT ---
Author Author JENNIFER BENAVIDES [facility] [employer] Address Unknown Phone Unavailable Care Team Providers Care Kiss Machine Operator Name Role Phone JENNIFER BENAVIDES CP Unavailable [...] I10 Active Problem HTN (hypertension) 401.9 Active Assessment Essential hypertension I10 Active Assessment Chronic hepatitis C without hepatic coma B18.2 Active Assessment Other specified personal risk factors, not elsewhere classified Z91.89 Active Assessment Type 2 diabetes mellitus without complications E11.9 Active Medications Medication Code System Code Instructions Start Date End Date Status Dosage Metoprolol Tartrate [facility] [address]-33 100 MG Orally Twice a day October 30, 2014 .5-1 tablet . 5 tab am 1 tab hs Terazosin HCl [facility] [address]-10 5 MG Orally Once a day Dec 25, 2014 1 capsule Meloxicam [facility] [address]-37 15 MG Orally Once a day Take 1 Tablet Allopurinol [facility] [address]-91 300 MG Orally Once a day 1 tablet Pantoprazole Sodium [facility] [address]-68 40 MG Orally Once a day Dec 29, 2014 1 tablet Hydrochlorothiazide [facility] 83155680469 25MG TAKE ONE-HALF TABLET BY MOUTH ONCE DAILY Procedures Procedure Coding System Code Date Office Visit, Est Pt., Level 3 CPT-4 02813 Mar 05, 2015 HEPATITIS C, RNA, QUANT CPT-4 70489 Mar 05, 2015 GLYCATED HEMOGLOBIN TEST CPT-4 74662 Mar 05, 2015 VENIPUNCT, ROUTINE* CPT-4 93851 Mar 05, 2015 Vital Signs Date/Time: Mar 05, 2015 Temperature 97.8 F Weight 277.0 lbs Height 69 in BMI 40.90 Index Blood Pressure Diastolic 72 mmHg Blood Pressure Systolic 120 mmHg Cardiac Monitoring Heart Rate 64 bpm Results Name Result Date Reference Range Unit Abnormality Flag PDF Report ----PDF Report1 [facility] [id number] PDF Report ----PDF Report1 LS [id number] HEP C PCR QUANT W/ GENOTYPE-APPROVAL REQUIRED ----HCV log10 6.631 [id number] log10 IU/mL ----Hepatitis C Genotype 1a [id number] ----Hepatitis C Quantitation [id number] IU/mL Summary Purpose eClinicalWorks Submission
--- OUTSIDE RECORDS SUMMARY | 2017-03-06 12:49 | XMS REPORT ---
Author Author JENNIFER BENAVIDES Organization [employer] Address Unknown Phone Unavailable Care Team Providers Care Psychologist Research Assistant Name Role Phone JENNIFER BENAVIDES CP [...]
--- OUTSIDE RECORDS SUMMARY | 2017-03-06 12:49 | XMS REPORT ---
Author Author JENNIFER BENAVIDES [facility] e[employer] Address Unknown Phone Unavailable Care Team Providers Care Banking Assistant Name Role Phone JENNIFER BENAVIDES CP [...] C without hepatic coma B18.2 Active Assessment Type 2 diabetes mellitus without [...] Start Date End Date Status Dosage Allopurinol [facility] 88408069936 300MG TAKE ONE TABLET BY MOUTH ONCE DAILY Hydrochlorothiazide [facility] 72118959972 25MG TAKE ONE-HALF TABLET BY MOUTH ONCE DAILY Meloxicam [facility] 79924472387 15MG TAKE ONE TABLET BY MOUTH ONCE DAILY Metoprolol Tartrate [facility] [address]-11 100 MG Orally Twice a day October 30, 2014 .5-1 tablet . 5 tab am 1 tab hs Pantoprazole Sodium ND 27758456937 40MG Orally Once a day 1 tablet Terazosin HCl ND 68425021742 5MG TAKE ONE CAPSULE BY MOUTH ONCE DAILY Procedures Procedure Coding System Code Date GLYCATED HEMOGLOBIN TEST CPT-4 91501 Jun 11, 2015 Office Visit, Est Pt., Level 3 CPT-4 11568 Jun 11, 2015 Vital Signs Date/Time: Jun 11, 2015 Temperature 98.1 F Weight 264 lbs Height 69 in BMI 38.98 Index Blood Pressure Diastolic 70 mmHg Blood Pressure Systolic 104 mmHg Cardiac Monitoring Heart Rate 58 bpm Results No Known Results Summary Purpose [employer]ClinicalWorks Submission
--- OUTSIDE RECORDS SUMMARY | 2017-03-06 12:49 | XMS REPORT ---
Author Author JENNIFER BENAVIDES Organization [employer] Address Unknown Phone Unavailable Care Team Providers Care Skidway Worker Name Role Phone JENNIFER BENAVIDES CP Unavailable [...] Medications Procedures Procedure Coding System Code Date COMPREHEN METABOLIC PANEL CPT-4 82059 Apr 25, 2015 ASSAY OF GGT CPT-4 24107 Apr 25, 2015 COMPLETE CBC W/AUTO DIFF WBC CPT-4 22255 Apr 25, 2015 VENIPUNCT, ROUTINE* CPT-4 27279 Apr 25, 2015 DRUG SCREEN QUANTALCOHOLS CPT-4 64681 Apr 25, 2015 Results Name Result Date Reference Range Unit Abnormality Flag ROUTINE VENIPUNCTURE Summary Purpose eClinicalWorks Submission
--- OUTSIDE RECORDS SUMMARY | 2017-03-06 12:49 | XMS REPORT ---
Author Author JENNIFER BENAVIDES Organization [employer] Address Unknown Phone Unavailable Care Team Providers Care Patternmaker Apprentice Metal Name Role Phone JENNIFER BENAVIDES CP Unavailable Allergies No Known Allergies Problems Problem Type Condition Code Onset Dates Condition Status Problem Pain in joint, pelvic region and thigh 719.45 Active Problem Diabetes mellitus without mention of complication, type II or unspecified type, not stated as uncontrolled 250.00 Active Problem Pure hyperglyceridemia 272.1 Active Problem Chronic hepatitis C without mention of hepatic coma 070.54 Active Problem Incisional hernia without mention of obstruction or gangrene 553.21 Active Problem Other ascites R18.8 Active Problem Type 2 diabetes mellitus without complications E11.9 Active Problem Allergic rhinitis, unspecified allergic rhinitis type J30.9 Active Problem Essential hypertension I10 Active Problem HTN (hypertension) 401.9 Active Problem Other specified personal risk factors, not elsewhere classified Z91.89 Active Problem Chronic hepatitis C without hepatic coma B18.2 Active Medications No Known Medications Results No Known Results Summary Purpose [employer]ClinicalWorks Submission
--- OUTSIDE RECORDS SUMMARY | 2017-03-06 12:49 | XMS REPORT ---
Author Author JENNIFER BENAVIDES [facility] e[employer] Address Unknown Phone Unavailable Care Team Providers Care Ticket Collector Name Role Phone JENNIFER BENAVIDES CP Unavailable Allergies, Adverse Reactions, Alerts Substance Reaction Event Type N.K.D.A. Info Not Available Non Drug Allergy Problems Problem Type Condition ICD-9 Code Onset Dates Condition Status Assessment Chronic hepatitis C without mention of hepatic coma 070.54 Active Assessment HTN (hypertension) 401.9 Active Problem Diabetes mellitus without mention of complication, type II or unspecified type, not stated as uncontrolled 250.00 Active Problem Pure hyperglyceridemia 272.1 Active Problem HTN (hypertension) 401.9 Active Problem Chronic hepatitis C without mention of hepatic coma 070.54 Active Assessment Diabetes mellitus without mention of complication, type II or unspecified type, not stated as uncontrolled 250.00 Active Problem Pain in joint, pelvic region and thigh 719.45 Active Problem Incisional hernia without mention of obstruction or gangrene 553.21 Active Medications Medication Code System Code Instructions Start Date End Date Status Dosage Allopurinol [facility] [address]-61 300 MG Orally Once a day 1 tablet pantoprazole NDC 0 40 mg Take 1 Tablet by Oral route 1 time per day Hydrochlorothiazide [facility] [address]-15 25 MG Orally Once a day June 20, 2014 take 0.5 tablet Metoprolol Tartrate [facility] [address]-01 100 MG Orally Twice a day October 30, 2014 .5-1 tablet . 5 tab am 1 tab hs terazosin NDC 0 5 mg Take 1 capsule by Oral route 1 time per day Meloxicam [facility] [address]-59 15 MG Orally Once a day Take 1 Tablet Procedures Procedure Coding System Code Date Office Visit, Est Pt., Level 3 CPT-4 89932 Nov 30, 2014 GLYCATED HEMOGLOBIN TEST CPT-4 84509 Nov 30, 2014 Vital Signs Date/Time: Nov 30, 2014 Cardiac Monitoring Heart Rate 82 bpm Weight 280 lbs Height 69 in BMI 41.34 Index Blood Pressure Diastolic 80 mmHg Blood Pressure Systolic 130 mmHg Results Name Result Date Reference Range Unit Abnormality Flag A1C (IN HOUSE) Summary Purpose eClinicalWorks Submission
--- OUTSIDE RECORDS SUMMARY | 2017-03-06 12:49 | XMS REPORT ---
Author Author JENNIFER BENAVIDES Organization [employer] Address Unknown Phone Unavailable Care Team Providers Care Biostatistics Manager Name Role Phone JENNIFER BENAVIDES CP Unavailable [...] Medications Procedures Procedure Coding System Code Date ASSAY OF AMMONIA CPT-4 30896 May 07, 2015 VENIPUNCT, ROUTINE* CPT-4 33685 May 07, 2015 ALPHA-FETOPROTEIN, SERUM CPT-4 64336 May 07, 2015 Results Name Result Date Reference Range Unit Abnormality Flag ROUTINE VENIPUNCTURE Summary Purpose [employer]ClinicalWorks Submission
--- OUTSIDE RECORDS SUMMARY | 2017-03-06 12:49 | XMS REPORT ---
Author Author JENNIFER BENAVIDES Organization [employer] Address Unknown Phone Unavailable Care Team Providers Care Mail Handler Equipment Operator Name Role Phone JENNIFER BENAVIDES CP [...]
--- OUTSIDE RECORDS SUMMARY | 2017-03-06 12:49 | XMS REPORT ---
Author Author JENNIFER BENAVIDES Organization [employer] Address Unknown Phone Unavailable Care Team Providers Care Sales Merchandiser Name Role Phone JENNIFER BENAVIDES CP Unavailable Allergies No Known Allergies Problems Problem Type Condition Code Onset Dates Condition Status Assessment Chronic hepatitis C without hepatic coma B18.2 Active Problem Incisional hernia without mention of [...] classified Z91.89 Active Medications No Known Medications Procedures Procedure Coding System Code Date VENIPUNCT, ROUTINE* CPT-4 17434 Dec 11, 2015 [facility] CPT-4 NOBLL Dec 11, 2015 Results No Known Results Summary Purpose eClinicalWorks Submission
--- OUTSIDE RECORDS SUMMARY | 2017-03-06 12:49 | XMS REPORT ---
Author Author JENNIFER BENAVIDES Organization [employer] Address Unknown Phone Unavailable Care Team Providers Care Prestressed Concrete Laborer Name Role Phone JENNIFER BENAVIDES CP Unavailable [...] Instructions Start Date End Date Status Dosage Terazosin HCl [facility] [address]-40 5 MG Orally Once a day Dec 25, 2014 1 capsule Results No Known Results Summary Purpose eClinicalWorks Submission
--- OUTSIDE RECORDS SUMMARY | 2017-03-06 12:49 | XMS REPORT ---
Author Author NACHO ARRIAGA Organization [facility] Address [address] [place] [address] Care Team Providers Care Photographic Double Name Role Phone NACHO ARRIAGA Unavailable PROBLEMS Type Condition ICD9-CM Code URR23-KX Code Onset Dates Condition Status SNOMED Code Problem Incisional hernia without mention of obstruction or gangrene 553.21 Active 676688782 Problem Other specified personal risk factors, not elsewhere classified Z91.89 Active 481537235 Problem Essential hypertension I10 Active 74378864 Problem Alcoholic cirrhosis of liver with ascites K70.31 Active 805665615 Problem Intention tremor G25.2 Active 68774203 Problem Chronic hepatitis C without hepatic coma B18.2 Active 830784381 Problem Type 2 diabetes mellitus without complications E11.9 Active 654350052 Problem Other ascites R18.8 Active 384795304 Problem Allergic rhinitis, unspecified allergic rhinitis type J30.9 Active 05399255 ALLERGIES Unknown Allergies SOCIAL HISTORY No smoking Hx information available PLAN OF CARE VITAL SIGNS MEDICATIONS Unknown Medications RESULTS No Results PROCEDURES No Known procedures IMMUNIZATIONS No Known Immunizations
--- OUTSIDE RECORDS SUMMARY | 2017-03-06 12:49 | XMS REPORT ---
Author Author JENNIFER BENAVIDES Organization [employer] Address Unknown Phone Unavailable Care Team Providers Care Crate Builder Name Role Phone JENNIFER BENAVIDES CP Unavailable [...]
--- OUTSIDE RECORDS SUMMARY | 2017-03-06 12:49 | XMS REPORT ---
Author Author JENNIFER BENAVIDES Organization [employer] Address Unknown Phone Unavailable Care Team Providers Care Side Puller Name Role Phone JENNIFER BENAVIDES CP Unavailable Allergies No Known Allergies Problems Problem Type Condition Code Onset Dates Condition Status Problem Incisional hernia without mention of obstruction or gangrene 553.21 Active Assessment Chronic hepatitis C without hepatic coma B18.2 Active Problem Allergic rhinitis, [...] Coding System Code Date VENIPUNCT, ROUTINE* CPT-4 07517 October 31, 2015 LAB NOT BILLED BY [facility] CPT-4 NOBLL October 31, 2015 Results No Known Results Summary Purpose eClinicalWorks Submission
--- OUTSIDE RECORDS SUMMARY | 2017-03-06 12:50 | XMS REPORT ---
Author Author JENNIFER BENAVIDES Organization [employer] Address Unknown Phone Unavailable Care Team Providers Care Rubber Cutting Machine Tender Name Role Phone JENNIFER BENAVIDES CP Unavailable [...]
--- OUTSIDE RECORDS SUMMARY | 2017-03-06 12:50 | XMS REPORT ---
Author Author JENNIFER BENAVIDES Organization [employer] Address Unknown Phone Unavailable Care Team Providers Care Swine Extension Field Specialist Name Role Phone JENNIFER BENAVIDES CP Unavailable [...]
--- OUTSIDE RECORDS SUMMARY | 2017-03-06 12:50 | XMS REPORT ---
Author Author JENNIFER BENAVIDES Organization [employer] Address Unknown Phone Unavailable Care Team Providers Care Kitchen Lead Name Role Phone JENNIFER BENAVIDES CP Unavailable [...]
--- OUTSIDE RECORDS SUMMARY | 2017-03-06 12:50 | XMS REPORT ---
Author Author JENNIFER BENAVIDES Organization [employer] Address Unknown Phone Unavailable Care Team Providers Care Conference Planner Name Role Phone JENNIFER BENAVIDES CP Unavailable [...] Coding System Code Date VENIPUNCT, ROUTINE* CPT-4 88659 Nov 26, 2015 [facility] CPT-4 NOBLL Nov 26, 2015 Results No Known Results Summary Purpose eClinicalWorks Submission
--- OUTSIDE RECORDS SUMMARY | 2017-03-06 12:50 | XMS REPORT ---
Author Author JENNIFER BENAVIDES Organization [employer] Address Unknown Phone Unavailable Care Team Providers Care Sustainability Project Coordinator Name Role Phone JENNIFER BENAVIDES CP Unavailable [...]
--- OUTSIDE RECORDS SUMMARY | 2017-03-06 12:50 | XMS REPORT ---
Author Author JENNIFER BENAVIDES Organization [employer] Address Unknown Phone Unavailable Care Team Providers Care Floorhand Name Role Phone JENNIFER BENAVIDES CP Unavailable [...]
--- OUTSIDE RECORDS SUMMARY | 2017-03-06 12:50 | XMS REPORT ---
Author Author JENNIFER BENAVIDES [facility] eClinicalWorks Address Unknown Phone Unavailable Care Team Providers Care Edger Technician Name Role Phone JENNIFER BENAVIDES CP Unavailable Allergies, Adverse Reactions, Alerts Substance Reaction Event Type N.K.D.A. Info Not Available Non Drug Allergy Problems Problem Type Condition Code Onset Dates Condition Status Assessment Encounter for immunization Z23 Active Problem Incisional hernia without mention of [...] Instructions Start Date End Date Status Dosage ZyrTEC [facility] 37702908034 10 mg Orally Once a day 1 tablet as needed Spironolactone [facility] 72701611458 50 mg Orally Once a day 1-2 tablet 1 tqb qam x 5 d then 2 tab q am Meloxicam [facility] 91145422930 15MG Orally Once a day 1 tablet Pantoprazole Sodium [facility] 44225086342 40MG Orally Once a day 1 tablet Metoprolol Tartrate [facility] 76098756996 50 mg Orally Twice a day .5-1 tablet . 5 tab am 1 tab hs Lactulose [facility] [address]-63 10 GM/15ML Orally twice a day October 24, 2015 15 ml Propranolol HCl [facility] 83171240417 20 mg Orally Twice a day 1 tablet Allopurinol [facility] 66846169415 300MG Orally Once a day 1 tablet Terazosin HCl [facility] 76037063883 5MG Orally Once a day 1 capsule Hydrochlorothiazide [facility] 24547153903 25MG Orally Once a day 1/2 tablets Xifaxan [facility] [address]-84 550 MG Orally Twice a day September 28, 2015 1 tablet Erin [facility] [address]-05 90-400 MG Orally Once a day 1 tablet Procedures Procedure Coding System Code Date Office Visit, Est Pt., Level 3 CPT-4 15618 Jan 07, 2016 PPV23 (PNEUMOVAX) CPT-4 79890 Jan 07, 2016 [facility] VISIT ESTABLISHED PATIENT CPT-4 G0467 Jan 07, 2016 SINGLE IMMUNIZATION ADMIN CPT-4 99950 Jan 07, 2016 FLUARIX QUAD P-FREE 3 AND UP .50 2015 CPT-4 27614 Jan 07, 2016 IMMUNIZATION ADMIN, EACH ADD (please include units) CPT-4 38161 Jan 07, 2016 Vital Signs Date/Time: Jan 07, 2016 Cardiac Monitoring Heart Rate 76 bpm Weight 279 lbs Height 69 in BMI 41.20 Index Blood Pressure Diastolic 72 mmHg Blood Pressure Systolic 120 mmHg Results No Known Results Immunizations Vaccine Administration Date PPV23 (PNEUMOVAX) Jan 07, 2016 FLUARIX QUAD P-FREE 3 AND UP .50 2015Jan 07, 2016 Summary Purpose eClinicalWorks Submission
--- OUTSIDE RECORDS SUMMARY | 2017-03-06 12:50 | XMS REPORT ---
Author Author JENNIFER BENAVIDES [facility] Address [address] [place] [address] Care Team Providers Care Security Management Specialist Name Role Phone JENNIFER BENAVIDES Unavailable PROBLEMS Type Condition ICD9-CM Code CLY53-LL Code Onset Dates Condition Status SNOMED Code Problem Incisional hernia without mention of obstruction or gangrene 553.21 Active 513734298 Problem Other specified personal risk factors, not elsewhere classified Z91.89 Active 203833365 Problem Essential hypertension I10 Active 50611357 Problem Alcoholic cirrhosis of liver with ascites K70.31 Active 072364361 Problem Intention tremor G25.2 Active 05962344 Problem Chronic hepatitis C without hepatic coma B18.2 Active 232177759 Problem Type 2 diabetes mellitus without complications E11.9 Active 264196588 Problem Other ascites R18.8 Active 970682519 Problem Allergic rhinitis, unspecified allergic rhinitis type J30.9 Active 99406728 ALLERGIES Substance Reaction Event Type Date Status N.K.D.A. Unknown Non Drug Allergy Apr, Unknown SOCIAL HISTORY No smoking Hx information available PLAN OF CARE Activity Details Follow Up prn Reason:after ku eval VITAL SIGNS Height 69 in 2016-04-29 Weight 266.1 lbs 2016-04-29 Temperature 97.1 degrees Fahrenheit 2016-04-29 Heart Rate 68 bpm 2016-04-29 Respiratory Rate 16 2016-04-29 BMI 39.29 kg/m2 2016-04-29 Blood pressure systolic 124 mmHg 2016-04-29 Blood pressure diastolic 72 mmHg 2016-04-29 MEDICATIONS Medication Instructions Dosage Frequency Start Date End Date Duration Status Hydrochlorothiazide 25MG Orally Once a day 1/2 tablets 24h Active Terazosin HCl 5MG Orally Once a day 1 capsule 24h Active Pantoprazole Sodium 40MG Orally Once a day 1 tablet 24h Active Propranolol HCl 20 mg Orally Twice a day 1 tablet 12h Active Xifaxan 550 MG Orally Twice a day 1 tablet 12h 17 Sep, 2015 Active Cetirizine HCl 10 MG TAKE ONE (1) TABLET BY MOUTH DAILY NEEDED... Active Meloxicam 15MG Orally Once a day 1 tablet 24h Active Allopurinol 300MG Orally Once a day 1 tablet 24h 30 Active Lactulose 10 GM/15ML TAKE 15ML'S BY MOUTH TWICE DAILY... Active Xifaxan 550 MG Orally Twice a day 1 tablet 12h 17 Apr, 2016 Active Metoprolol Tartrate 50 mg Orally Twice a day .5-1 tablet . 5 tab am 1 tab hs 12h Active RESULTS Name Result Date Reference Range AMMONIA 2016-04-29 Ammonia, Plasma 192 27-102 CMP 2016-04-29 Glucose, Serum 112 65-99 BUN 38 8-27 Creatinine, Serum 2.02 0.76-1.27 eGFR If NonAfricn Am 34 >59 eGFR If Africn Am 39 >59 BUN/Creatinine Ratio 19 10-22 Sodium, Serum 140 134-144 Potassium, Serum 7.0 3.5-5.2 Chloride, Serum 111 96-106 Carbon Dioxide, Total 19 18-29 Calcium, Serum 9.0 8.6-10.2 Protein, Total, Serum 6.5 6.0-8.5 Albumin, Serum 2.9 3.6-4.8 Globulin, Total 3.6 1.5-4.5 A/G Ratio 0.8 1.1-2.5 Bilirubin, Total 3.1 0.0-1.2 Alkaline Phosphatase, S 155 39-117 AST (SGOT) 163 0-40 ALT (SGPT) 83 0-44 PROCEDURES Procedure Date Ordered Related Diagnosis Body Site [facility] Apr 29, 2016 [facility] VISIT ESTABLISHED PATIENT Apr 29, 2016 ARIC, ROUTINE* Apr 29, 2016 Office Visit, Est Pt., Level 3 Apr 29, 2016 IMMUNIZATIONS No Known Immunizations
--- OUTSIDE RECORDS SUMMARY | 2017-03-06 12:50 | XMS REPORT ---
Author Author JENNIFER BENAVIDES Organization [employer] Address Unknown Phone Unavailable Care Team Providers Care Dust Control Engineer Name Role Phone JENNIFER BENAVIDES CP Unavailable [...]
--- OUTSIDE RECORDS SUMMARY | 2017-03-06 12:50 | XMS REPORT ---
Author Author JENNIFER BENAVIDES [facility] eClinicalWorks Address Unknown Phone Unavailable Care Team Providers Care Vessel Builder Name Role Phone JENNIFER BENAVIDES CP [...] C without hepatic coma B18.2 Active Assessment Right shoulder pain M25.511 Active Problem Other specified personal risk factors, [...] Start Date End Date Status Dosage Meloxicam [facility] 54270022580 15MG TAKE ONE TABLET BY MOUTH ONCE DAILY Terazosin HCl [facility] [address]-54 5 MG Orally Once a day Dec 25, 2014 1 capsule Pantoprazole Sodium [facility] [address]-38 40 MG Orally Once a day Dec 29, 2014 1 tablet Metoprolol Tartrate [facility] [address]-10 100 MG Orally Twice a day October 30, 2014 .5-1 tablet . 5 tab am 1 tab hs Hydrochlorothiazide [facility] 03171068379 25MG TAKE ONE-HALF TABLET BY MOUTH ONCE DAILY Allopurinol [facility] 36234528445 300MG TAKE ONE TABLET BY MOUTH ONCE DAILY Procedures Procedure Coding System Code Date Office Visit, Est Pt., Level 3 CPT-4 13813 Apr 10, 2015 VENIPUNCT, ROUTINE* CPT-4 76438 Apr 10, 2015 DRUG SCREEN QUANTALCOHOLS CPT-4 06962 Apr 10, 2015 Vital Signs Date/Time: Apr 10, 2015 Temperature 98.4 F Weight 275.2 lbs Height 69 in BMI 40.64 Index Blood Pressure Diastolic 60 mmHg Blood Pressure Systolic 120 mmHg Cardiac Monitoring Heart Rate 70 bpm Results Name Result Date Reference Range Unit Abnormality Flag ALCOHOL LEVEL, BLOOD ----Ethanol 0.000 [id number] Cutoff=0.010 % Summary Purpose eClinicalWorks Submission
--- OUTSIDE RECORDS SUMMARY | 2017-03-06 12:50 | XMS REPORT ---
Author Author TAIWO HUERTA [facility] eClinicalWorks Address Unknown Phone Unavailable Care Team Providers Care Switchboard And Control Room Operator Name Role Phone TAIWO HUERTA CP Unavailable Allergies, Adverse Reactions, Alerts Substance [...] mention of hepatic coma 070.54 Active Assessment Ingrown left greater toenail 703.0 Active Problem Pain in joint, pelvic region and thigh 719.45 Active Problem Incisional hernia without mention of obstruction or gangrene 553.21 Active Medications Medication Code System Code Instructions Start Date End Date Status Dosage Allopurinol [facility] [address]-66 300 MG Orally Once a day 1 tablet Hydrochlorothiazide [facility] [address]-53 25 MG Orally Once a day June 20, 2014 take 0.5 tablet Metoprolol Tartrate [facility] [address]-29 100 MG Orally Twice a day October 30, 2014 .5-1 tablet . 5 tab am 1 tab hs Terazosin HCl [facility] [address]-48 5 MG Orally Once a day Dec 25, 2014 1 capsule Pantoprazole Sodium [facility] [address]-31 40 MG Orally Once a day Dec 29, 2014 1 tablet Meloxicam [facility] [address]-00 15 MG Orally Once a day Take 1 Tablet Bactrim DS [facility] [address]-02 800-160 MG Orally 2 times a day Jan 04, 2015 Jan 14, 2015 1 tablet Procedures Procedure Coding System Code Date Office Visit, Est Pt., Level 3 CPT-4 73727 Jan 04, 2015 Vital Signs Date/Time: Jan 04, 2015 Temperature 98.1 F Weight 276.6 lbs Height 69 in BMI 40.84 Index Blood Pressure Diastolic 76 mmHg Blood Pressure Systolic 128 mmHg Cardiac Monitoring Heart Rate 76 bpm Results No Known Results Summary Purpose eClinicalWorks Submission
--- OUTSIDE RECORDS SUMMARY | 2017-03-06 12:51 | XMS REPORT ---
Author Author JENNIFER BENAVIDES [facility] Address [address] [place] [address] Care Team Providers Care Foamite Mixer Name Role Phone JENNIFER BENAVIDES Unavailable PROBLEMS Type Condition ICD9-CM Code UCK87-GH Code Onset Dates Condition Status SNOMED Code Assessment Chronic hepatitis C without hepatic coma B18.2 Mar, Active 754796862 Problem Essential hypertension I10 Active 47483958 Problem Incisional hernia without mention of obstruction or gangrene 553.21 Active 655887060 Problem Intention tremor G25.2 Active 55437829 Problem Allergic rhinitis, unspecified allergic rhinitis type J30.9 Active 48968228 Problem Other specified personal risk factors, not elsewhere classified Z91.89 Active 150497744 Problem Chronic hepatitis C without hepatic coma B18.2 Active 914418504 Problem Other ascites R18.8 Active 877856097 Problem Type 2 diabetes mellitus without complications E11.9 Active 650550044 ALLERGIES Unknown Allergies SOCIAL HISTORY No smoking Hx information available PLAN OF CARE Activity Details Pending Test HEP C PCR QUANT (Non-Graph)-APPROVAL REQUIRED Pending Test CBC Pending Test CMP ,Reason: VITAL SIGNS MEDICATIONS Unknown Medications RESULTS Name Result Date Reference Range HEP C PCR QUANT (Non-Graph)-APPROVAL REQUIRED 2016-03-24 Hepatitis C Quantitation [id number] HCV log10 6.780 Test Information: CBC 2016-03-24 WBC 3.5 3.4-10.8 RBC 3.03 4.14-5.80 Hemoglobin 11.0 12.6-17.7 Hematocrit 32.0 37.5-51.0 MCV 106 79-97 MCH 36.3 26.6-33.0 MCHC 34.4 31.5-35.7 RDW 19.4 12.3-15.4 Platelets TNP Neutrophils 50 Lymphs 39 Monocytes 9 Eos 1 Basos 1 Neutrophils (Absolute) 1.8 1.4-7.0 Lymphs (Absolute) 1.4 0.7-3.1 Monocytes(Absolute) 0.3 0.1-0.9 Eos (Absolute) 0.0 0.0-0.4 Baso (Absolute) 0.0 0.0-0.2 Hematology Comments: Note: CMP 2016-03-24 Glucose, Serum 128 65-99 BUN 24 8-27 Creatinine, Serum 1.69 0.76-1.27 eGFR If NonAfricn Am 42 >59 eGFR If Africn Am 48 >59 BUN/Creatinine Ratio 14 10-22 Sodium, Serum 138 134-144 Potassium, Serum 4.7 3.5-5.2 Chloride, Serum 107 96-106 Carbon Dioxide, Total 21 18-29 Calcium, Serum 8.5 8.6-10.2 Protein, Total, Serum 6.0 6.0-8.5 Albumin, Serum 3.0 3.6-4.8 Globulin, Total 3.0 1.5-4.5 A/G Ratio 1.0 1.1-2.5 Bilirubin, Total 3.3 0.0-1.2 Alkaline Phosphatase, S 164 39-117 AST (SGOT) 189 0-40 ALT (SGPT) 93 0-44 PROCEDURES Procedure Date Ordered Related Diagnosis Body Site LAB [facility] Mar 24, 2016 VENIPUNCT, ROUTINE* Mar 24, 2016 IMMUNIZATIONS No Known Immunizations
--- OUTSIDE RECORDS SUMMARY | 2017-03-06 12:51 | XMS REPORT ---
Author Author JENNIFER BENAVIDES [facility] Address [address] [place] [address] Care Team Providers Care Dairy Feed Worker Name Role Phone JENNIFER BENAVIDES Unavailable PROBLEMS Type Condition ICD9-CM Code MQL16-ME Code Onset Dates Condition Status SNOMED Code Problem Incisional hernia without mention of obstruction or gangrene 553.21 Active 398197882 Problem Chronic hepatitis C without hepatic coma B18.2 Active 746544417 Problem Essential hypertension I10 Active 24926296 Problem Alcoholic cirrhosis of liver with ascites K70.31 Active 699601087 Problem Intention tremor G25.2 Active 01187590 Problem Type 2 diabetes mellitus without complications E11.9 Active 285433282 Problem Other specified personal risk factors, not elsewhere classified Z91.89 Active 411482305 Problem Allergic rhinitis, unspecified allergic rhinitis type J30.9 Active 60195276 Problem Other ascites R18.8 Active 060441134 ALLERGIES Unknown Allergies SOCIAL HISTORY No smoking Hx information available PLAN OF CARE VITAL SIGNS MEDICATIONS Medication Instructions Dosage Frequency Start Date End Date Duration Status Xifaxan 550 MG Orally Twice a day 1 tablet 12h 17 Sep, 2015 Active RESULTS No Results PROCEDURES No Known procedures IMMUNIZATIONS No Known Immunizations
--- OUTSIDE RECORDS SUMMARY | 2017-03-06 12:51 | XMS REPORT ---
Author Author JENNIFER BENAVIDES [facility] eClinicalWorks Address Unknown Phone Unavailable Care Team Providers Care Manager Garage Name Role Phone JENNIFER BENAVIDES CP Unavailable [...] C without hepatic coma B18.2 Active Assessment Allergic rhinitis, unspecified allergic rhinitis type J30.9 Active Assessment Chronic hepatitis C without hepatic coma B18.2 Active Problem Chronic hepatitis C without mention of hepatic coma 070.54 Active Assessment Other ascites R18.8 Active Problem Incisional hernia without mention of obstruction or gangrene 553.21 Active Medications Medication Code System Code Instructions Start Date End Date Status Dosage Terazosin HCl [facility] 01853326450 5MG TAKE ONE CAPSULE BY MOUTH ONCE DAILY Metoprolol Tartrate [facility] [address]-76 100 MG Orally Twice a day October 30, 2014 .5-1 tablet . 5 tab am 1 tab hs Hydrochlorothiazide [facility] 42141324686 25MG Orally Once a day TAKE ONE-HALF TABLET Allopurinol [facility] 11600875273 300MG Orally Once a day 1 tablet Pantoprazole Sodium [facility] 80375222691 40MG Orally Once a day 1 tablet Spironolactone [facility] [address]-50 50 mg Orally Once a day July 24, 2015 1-2 tablet 1 tqb qam x 5 d then 2 tab q am ZyrTEC ND 0 10 mg Orally Once a day July 24, 2015 1 tablet as needed Meloxicam [facility] 25076106344 15MG Orally Once a day 1 tablet Procedures Procedure Coding System Code Date Office Visit, Est Pt., Level 3 CPT-4 61060 July 24, 2015 VENIPMAGGIE, ROUTINE* CPT-4 27015 July 24, 2015 [facility] CPT-4 NOBLL July 24, 2015 Vital Signs Date/Time: July 24, 2015 Temperature 97.9 F Weight 285.6 lbs Height 69 in BMI 42.17 Index Blood Pressure Diastolic 70 mmHg Blood Pressure Systolic 120 mmHg Cardiac Monitoring Heart Rate 60 bpm Results Name Result Date Reference Range Unit Abnormality Flag CBC ----Lymphs 52 20150724 % ----Neutrophils 36 20150724 % ----Baso (Absolute) 0.0 22770883 0.0-0.2 x10E3/uL ----Hemoglobin 11.7 29766773 12.6-17.7 g/dL L ----Eos (Absolute) 0.1 90390496 0.0-0.4 x10E3/uL ----Hematocrit 33.7 71490253 37.5-51.0 % L ----Monocytes(Absolute) 0.6 06782947 0.1-0.9 x10E3/uL ----MCV 104 19732423 79-97 fL H ----Lymphs (Absolute) 2.6 74365409 0.7-3.1 x10E3/uL ----MCH 36.1 70780653 26.6-33.0 pg H ----Neutrophils (Absolute) 1.8 91077708 1.4-7.0 x10E3/uL ----MCHC 34.7 12266444 31.5-35.7 g/dL ----Immature Granulocytes 0 81015601 % ----Basos 0 95336225 % ----RDW 16.0 70971864 12.3-15.4 % H ----Immature Grans (Abs) 0.0 52499994 0.0-0.1 x10E3/uL ----WBC 5.1 56374988 3.4-10.8 x10E3/uL ----Platelets 24 20150724 150-379 x10E3/uL LL ----Eos 1 02445753 % ----Hematology Comments: Note: 20150724 ----RBC 3.24 13266646 4.14-5.80 x10E6/uL L ----Monocytes 11 04759732 % CMP ----Globulin, Total 3.6 94771344 1.5-4.5 g/dL ----eGFR If Africn Am 106 23340521 >59 mL/min/1.73 ----eGFR If NonAfricn Am 92 42430115 >59 mL/min/1.73 ----Albumin, Serum 2.7 79256194 3.6-4.8 g/dL L ----Sodium, Serum 140 45595731 134-144 mmol/L ----Protein, Total, Serum 6.3 92261688 6.0-8.5 g/dL ----BUN/Creatinine Ratio 22 31075805 10-22 ----Calcium, Serum 8.4 71983134 8.6-10.2 mg/dL L ----AST (SGOT) 153 51030948 0-40 IU/L H ----Glucose, Serum 81 77595762 65-99 mg/dL ----Alkaline Phosphatase, S 190 78410352 39-117 IU/L H ----Bilirubin, Total 2.2 45604630 0.0-1.2 mg/dL H ----Creatinine, Serum 0.86 39246892 0.76-1.27 mg/dL ----A/G Ratio 0.8 99822905 1.1-2.5 L ----BUN 19 80510423 8-27 mg/dL ----Carbon Dioxide, Total 21 81050480 18-29 mmol/L ----ALT (SGPT) 77 52718398 0-44 IU/L H ----Potassium, Serum 4.6 81899710 3.5-5.2 mmol/L ----Chloride, Serum 107 57827225 97-108 mmol/L ROUTINE VENIPUNCTURE AMMONIA ----Request Problem TNP [id number] ----Ammonia, Plasma TNP 59698796 ug/dL Summary Purpose eClinicalWorks Submission
--- OUTSIDE RECORDS SUMMARY | 2017-03-06 12:51 | XMS REPORT ---
Author Author JENNIFER BENAVIDES [facility] Address [address] [place] [address] Care Team Providers Care Senior Compliance Analyst Name Role Phone JENNIFER BENAVIDES Unavailable PROBLEMS Type Condition ICD9-CM Code RJC60-XF Code Onset Dates Condition Status SNOMED Code Assessment Chronic hepatitis C with hepatic coma B18.2 Dec, Active 446623950302189 Problem Essential hypertension I10 Active 77495343 Problem Incisional hernia without mention of obstruction or gangrene 553.21 Active 715286751 Problem Intention tremor G25.2 Active 91643237 Problem Allergic rhinitis, unspecified allergic rhinitis type J30.9 Active 05348045 Problem Other specified personal risk factors, not elsewhere classified Z91.89 Active 097287672 Problem Chronic hepatitis C without hepatic coma B18.2 Active 637161253 Problem Other ascites R18.8 Active 523613164 Problem Type 2 diabetes mellitus without complications E11.9 Active 327090898 ALLERGIES Unknown Allergies SOCIAL HISTORY No smoking Hx information available PLAN OF CARE VITAL SIGNS MEDICATIONS Unknown Medications RESULTS Name Result Date Reference Range AMMONIA 2015-12-24 Ammonia, Plasma 193 27-102 HEP C PCR QUANT (Non-Graph)-APPROVAL REQUIRED 2015-12-24 Hepatitis C Quantitation 3720 HCV log10 3.571 Test Information: CBC 2015-12-24 WBC 5.0 3.4-10.8 RBC 3.16 4.14-5.80 Hemoglobin 11.6 12.6-17.7 Hematocrit 33.7 37.5-51.0 MCV 107 79-97 MCH 36.7 26.6-33.0 MCHC 34.4 31.5-35.7 RDW 15.9 12.3-15.4 Platelets TNP Neutrophils 52 Lymphs 39 Monocytes 8 Eos 1 Basos 0 Immature Cells Neutrophils (Absolute) 2.6 1.4-7.0 Lymphs (Absolute) 1.9 0.7-3.1 Monocytes(Absolute) 0.4 0.1-0.9 Eos (Absolute) 0.0 0.0-0.4 Baso (Absolute) 0.0 0.0-0.2 Immature Granulocytes 0 Immature Grans (Abs) 0.0 0.0-0.1 NRBC Hematology Comments: Note: PT/INR 2015-12-24 INR 1.4 0.8-1.2 Prothrombin Time 14.8 9.1-12.0 CMP 2015-12-24 Glucose, Serum 116 65-99 BUN 21 8-27 Creatinine, Serum 1.06 0.76-1.27 eGFR If NonAfricn Am 73 >59 eGFR If Africn Am 85 >59 BUN/Creatinine Ratio 20 10-22 Sodium, Serum 141 134-144 Potassium, Serum 4.8 3.5-5.2 Chloride, Serum 108 97-108 Carbon Dioxide, Total 22 18-29 Calcium, Serum 8.6 8.6-10.2 Protein, Total, Serum 6.0 6.0-8.5 Albumin, Serum 3.1 3.6-4.8 Globulin, Total 2.9 1.5-4.5 A/G Ratio 1.1 1.1-2.5 Bilirubin, Total 1.2 0.0-1.2 Alkaline Phosphatase, S 148 39-117 AST (SGOT) 35 0-40 ALT (SGPT) 16 0-44 PROCEDURES Procedure Date Ordered Related Diagnosis [facility] Dec [facility], 2015 PROTHROMBIN TIME Dec 24, 2015 VENIPUNCT, ROUTINE* Dec 24, 2015 IMMUNIZATIONS No Known Immunizations
--- OUTSIDE RECORDS SUMMARY | 2017-03-06 12:51 | XMS REPORT ---
Author Author JENNIFER BENAVIDES Organization eClinicalWorks Address Unknown Phone Unavailable Care Team Providers Care Large Animal Husbandry Technician Name Role Phone JENNIFER BENAVIDES CP [...]
--- OUTSIDE RECORDS SUMMARY | 2017-03-06 12:51 | XMS REPORT ---
Author Author JENNIFER BENAVIDES [facility] eClinicalWorks Address Unknown Phone Unavailable Care Team Providers Care Corporate Events Director Name Role Phone JENNIFER BENAVIDES CP Unavailable Allergies, Adverse Reactions, Alerts Substance Reaction Event Type N.K.D.A. Info Not Available Non Drug Allergy Problems Problem Type Condition Code Onset Dates Condition Status Assessment Essential hypertension I10 Active Problem Incisional hernia without mention of [...] Instructions Start Date End Date Status Dosage Harvoni [facility] [address]-53 90-400 MG Orally Once a day 1 tablet Xifaxan [facility] [address]-94 550 MG Orally Twice a day September 28, 2015 1 tablet Propranolol HCl [facility] 32043065433 20 mg Orally Twice a day 1 tablet Spironolactone [facility] 44161705081 50 mg Orally Once a day 1-2 tablet 1 tqb qam x 5 d then 2 tab q am Pantoprazole Sodium [facility] 37209116473 40MG Orally Once a day 1 tablet Meloxicam [facility] 40548743800 15MG Orally Once a day 1 tablet Hydrochlorothiazide [facility] 13353774774 25MG Orally Once a day 1/2 tablets Metoprolol Tartrate [facility] 20635328495 50 mg Orally Twice a day .5-1 tablet . 5 tab am 1 tab hs Lactulose [facility] [address]-60 10 GM/15ML Orally twice a day October 24, 2015 15 ml Terazosin HCl [facility] 75423419816 5MG Orally Once a day 1 capsule ZyrTEC NDC 0 10 mg Orally Once a day July 24, 2015 1 tablet as needed Allopurinol [facility] 42795200652 300MG Orally Once a day 1 tablet Procedures Procedure Coding System Code Date Office Visit, Est Pt., Level 3 CPT-4 31525 November 08, 2015 [facility] VISIT ESTABLISHED PATIENT CPT-4 G0467 November 08, 2015 Vital Signs Date/Time: November 08, 2015 Cardiac Monitoring Heart Rate 62 bpm Weight 272 lbs Height 69 in BMI 40.16 Index Blood Pressure Diastolic 70 mmHg Blood Pressure Systolic 120 mmHg Results No Known Results Summary Purpose eClinicalWorks Submission
--- OUTSIDE RECORDS SUMMARY | 2017-03-06 12:51 | XMS REPORT ---
Author Author JENNIFER BENAVIDES [facility] Address [address] [place] [address] Care Team Providers Care International Guest Coordinator Name Role Phone JENNIFER BENAVIDES Unavailable PROBLEMS Type Condition ICD9-CM Code JSC07-XL Code Onset Dates Condition Status SNOMED Code Problem Incisional hernia without mention of obstruction or gangrene 553.21 Active 263604788 Problem Chronic hepatitis C without hepatic coma B18.2 Active 291621704 Problem Essential hypertension I10 Active 30173412 Problem Alcoholic cirrhosis of liver with ascites K70.31 Active 963977843 Problem Intention tremor G25.2 Active 87067407 Problem Type 2 diabetes mellitus without complications E11.9 Active 316069224 Problem Other specified personal risk factors, not elsewhere classified Z91.89 Active 293470364 Problem Allergic rhinitis, unspecified allergic rhinitis type J30.9 Active 75509277 Problem Other ascites R18.8 Active 220014788 ALLERGIES Unknown Allergies SOCIAL HISTORY No smoking Hx information available PLAN OF CARE VITAL SIGNS MEDICATIONS Unknown Medications RESULTS No Results PROCEDURES No Known procedures IMMUNIZATIONS No Known Immunizations
--- OUTSIDE RECORDS SUMMARY | 2017-03-06 12:51 | XMS REPORT ---
Author Author NACHO PEÑA [facility] eClinicalWorks Address Unknown Phone Unavailable Care Team Providers Care Opener Name Role Phone NACHO PEÑA CP Unavailable Allergies, Adverse Reactions, Alerts Substance [...] Date End Date Status Dosage Terazosin HCl [facility] [address]-00 5 MG Orally Once a day Dec 25, 2014 [address] [facility] 89265863796 25MG TAKE ONE-HALF TABLET BY MOUTH ONCE DAILY Allopurinol [facility] 31432885935 300MG TAKE ONE TABLET BY MOUTH ONCE DAILY Meloxicam [facility] 44836644665 15MG TAKE ONE TABLET BY MOUTH ONCE DAILY Metoprolol Tartrate [facility] [address]-70 100 MG Orally Twice a day October 30, 2014 .5-1 tablet . 5 tab am 1 tab hs Pantoprazole Sodium [facility] [address]-21 40 MG Orally Once a day Dec 29, 2014 1 tablet Procedures Procedure Coding System Code Date Office Visit, Est Pt., Level 4 CPT-4 50764 Mar 27, 2015 Vital Signs Date/Time: Mar 27, 2015 Temperature 98.0 F Weight 278.0 lbs Height 69 in BMI 41.05 Index Blood Pressure Diastolic 62 mmHg Blood Pressure Systolic 124 mmHg Cardiac Monitoring Heart Rate 72 bpm Results No Known Results Summary Purpose eClinicalWorks Submission
--- OUTSIDE RECORDS SUMMARY | 2017-03-06 12:52 | XMS REPORT ---
Author Author JENNIFER BENAVIDES [facility] Address [address] [place] [address] Care Team Providers Care Java Development Team Lead Name Role Phone JENNIFER BENAVIDES Unavailable PROBLEMS Type Condition ICD9-CM Code JJO22-RW Code Onset Dates Condition Status SNOMED Code Problem Incisional hernia without mention of obstruction or gangrene 553.21 Active 682140700 Problem Chronic hepatitis C without hepatic coma B18.2 Active 822206600 Problem Essential hypertension I10 Active 05582394 Problem Alcoholic cirrhosis of liver with ascites K70.31 Active 325859676 Problem Intention tremor G25.2 Active 06659246 Problem Type 2 diabetes mellitus without complications E11.9 Active 284453556 Problem Other specified personal risk factors, not elsewhere classified Z91.89 Active 942662404 Problem Allergic rhinitis, unspecified allergic rhinitis type J30.9 Active 82651983 Problem Other ascites R18.8 Active 603583681 ALLERGIES Unknown Allergies SOCIAL HISTORY No smoking Hx information available PLAN OF CARE VITAL SIGNS MEDICATIONS Medication Instructions Dosage Frequency Start Date End Date Duration Status Terazosin HCl 5MG Orally Once a day 1 capsule 24h Active RESULTS No Results PROCEDURES No Known procedures IMMUNIZATIONS No Known Immunizations
--- OUTSIDE RECORDS SUMMARY | 2017-03-06 12:52 | XMS REPORT ---
Author Author JENNIFER BENAVIDES Organization eClinicalWorks Address Unknown Phone Unavailable Care Team Providers Care Implementation Analyst Name Role Phone JENNIFER BENAVIDES CP Unavailable [...]
[2017-03-06 13:17] LABS: BASOPHILS % (AUTO) 0 % (0-10); EOSINOPHILS % (AUTO) 1 % (0-10); LYMPHOCYTES # (AUTO) 1.6 X 10^3 (1.0-4.0); LYMPHOCYTES % (AUTO) 36 % (12-44); MEAN CORPUSCULAR HEMOGLOBIN 36 PG (25-34); MEAN CORPUSCULAR HGB CONC 34 G/DL (32-36); MEAN CORPUSCULAR VOLUME 106 FL (80-99); MEAN PLATELET VOLUME 12.3 FL (7.4-10.4); MONOCYTES # (AUTO) 0.4 X 10^3 (0.0-1.0); MONOCYTES % (AUTO) 9 % (0-12); NEUTROPHILS # (AUTO) 2.4 X 10^3 (1.8-7.8); NEUTROPHILS % (AUTO) 54 % (42-75); PLATELET COUNT 48 10^3/uL (130-400); RED BLOOD COUNT 3.16 10^6/uL (4.35-5.85); RED CELL DISTRIBUTION WIDTH 15.1 % (10.0-14.5); WHITE BLOOD COUNT 4.5 10^3/uL (4.3-11.0)
[2017-03-06 13:29] LABS: INR 1.6 (0.8-1.4); PROTHROMBIN TIME PATIENT 19.5 SEC (12.2-14.7)
[2017-03-06 13:39] LABS: ALANINE AMINOTRANSFERASE 43 U/L (0-55); ALBUMIN 2.5 GM/DL (3.2-4.5); ALCOHOL < 10 MG/DL (<10); AMMONIA 64 UMOL/L (11-32); AMYLASE 104 U/L (25-125); ANION GAP 8 MMOL/L (5-14); ASPARTATE AMINO TRANSFERASE 80 U/L (5-34); BILIRUBIN,TOTAL 2.9 MG/DL (0.1-1.0); BLOOD UREA NITROGEN 17 MG/DL (7-18); BUN/CREATININE RATIO 15; CALCIUM 8.3 MG/DL (8.5-10.1); CARBON DIOXIDE 27 MMOL/L (21-32); CHLORIDE 108 MMOL/L (98-107); CREATININE SERUM 1.17 MG/DL (0.60-1.30); GFR ESTIMATED > 60; GLUCOSE 150 MG/DL (70-105); LIPASE 40 U/L (8-78); MAGNESIUM 1.4 MG/DL (1.8-2.4); POTASSIUM 3.4 MMOL/L (3.6-5.0); SODIUM 143 MMOL/L (135-145); TOTAL PROTEIN 6.2 GM/DL (6.4-8.2)
--- NOTE | 2017-03-06 13:40 | Diagnostic Imaging Report ---
INDICATION: Lower chest pain. FINDINGS: Portable chest shows normal heart size and vascularity. The lungs are clear. There is no effusion or pneumothorax. IMPRESSION: Normal chest. There is no change from 09/17/2015. Dictated by: Dictated on workstation # [id number]
[2017-03-06 13:44] LABS: BILIRUBIN,URINE NEGATIVE (NEGATIVE); KETONES,URINE NEGATIVE (NEGATIVE); LEUKOCYTE ESTERASE ,URINE NEGATIVE (NEGATIVE); NITRITE,URINE NEGATIVE (NEGATIVE); PH,URINE 7 (5-9); PROTEIN,URINE NEGATIVE (NEGATIVE); UROBILINOGEN,URINE NORMAL (NORMAL)
[2017-03-06 13:45] LABS: TROPONIN I < 0.30 NG/ML (<0.30)
[2017-03-06] MEDS ORDERED: LACTULOSE SYRUP 10GM/15ML (ENULOSE) 30ML UDC PO ONE (13:45)
[2017-03-06] MEDS ORDERED: MAGNESIUM OXIDE (MAG-OX)400 MG TAB PO ONE (13:45)
[2017-03-06] MEDS ORDERED: MAGNESIUM 1 GM/100 ML IVPB 100 ML IV ONE (13:45)
[2017-03-06 13:52] LABS: SQUAMOUS EPITHELIAL CELL,UR 0-2 /HPF
--- NOTE | 2017-03-06 14:20 | ED General ---
General Chief Complaint: Abdominal/GI Problems Stated Complaint: WEAK,DIZZINESS,AMS Nursing Triage Note: PT TO AMBULATES TO ROOM 6 PT LEFT TANA ORTIZ, PT HAS ACITES STATES HAD 1.5L PARACENTISIS ON THURSDAY. PT IS ON TRANSPLANT LIST FOR LIVER. PT CO OF UPPER ABD PAIN. PT STATES HAS BEEN CONFUSED AND VERY WEAK. Nursing Sepsis Screen: No Definite Risk Allergies and Home Medications Allergies Coded Allergies: No Known Drug Allergies (Unverified , 04/30/16) Home Medications Allopurinol 300 Mg Tablet, 300 MG PO DAILY, (Reported) Baclofen 10 Mg Tablet, 10 MG PO HS, (Reported) Cetirizine HCl 10 Mg Tablet, 10 MG PO DAILY PRN for CONGESTION, (Reported) Furosemide 40 Mg Tablet, 40 MG PO DAILY, (Reported) Ketoconazole 120 Ml Shampoo, TP EVERY 3 DAYS, (Reported) Lactulose 10 Gm/15 Ml Solution, 30 ML PO DAILY, (Reported) Methyl Salicylate/Menthol 35.4 Gm Cream..g., TP PRN PRN for PAIN, (Reported) Pantoprazole Sodium 40 Mg Tablet.dr, 40 MG PO DAILY, (Reported) Propranolol HCl 40 Mg Tablet, 40 MG PO BID, (Reported) Rifaximin 550 Mg Tablet, 550 MG PO BID, (Reported) Terazosin HCl 5 Mg Capsule, 5 MG PO DAILY, (Reported) Tramadol HCl 50 Mg Tablet, 50 MG PO BID, (Reported) Vitamin A Palmitate 10,000 Unit Capsule, 10,000 UNIT PO DAILY, (Reported) Zinc Sulfate 220 Mg Capsule, 220 MG PO DAILY, (Reported) Past Irojuqm-Dshbhg-Gwzcor Hx Patient Social History Alcohol Use: Past History Recreational Drug Use: No Smoking Status: Former Smoker Type Used: Smokeless Tobacco 2nd Hand Smoke Exposure: No Recent Foreign Travel: No Contact w/Someone Who Travel: No Recent Infectious Disease Expo: No Recent Hopitalizations: No Physical Abuse: No Sexual Abuse: No Immunizations Up To Date Date of Pneumonia Vaccine: Mar 13, 2016 Date of Influenza Vaccine: Mar 13, 2016 Seasonal Allergies Seasonal Allergies: Yes Surgeries History of Surgeries: Yes (hernia repair) Surgeries: Gallbladder Respiratory History of Respiratory Disorde: No Cardiovascular History of Cardiac Disorders: Yes Cardiac Disorders: Chronic Edema/Swelling, Hypertension Neurological History of Neurological Disord: No Genitourinary History of Genitourinary Disor: Yes Genitourinary Disorders: Benign Prostatic Hyperpl Gastrointestinal History of Gastrointestinal Di: Yes (HEPATITIS C--NO TREATMENT) Gastrointestinal Disorders: Liver Disease/Jaundice, Hepatitis, Ulcer, Cirrhosis Musculoskeletal History of Musculoskeletal Dis: Yes (ARTHRITIS) Musculoskeletal Disorders: Arthritis, Gout Endocrine History of Endocrine Disorders: No HEENT History of HEENT Disorders: No Cancer History of Cancer: No Psychosocial History of Psychiatric Problem: No Suicide Risk Score: 0 Integumentary History of Skin or Integumenta: No Blood Transfusions History of Blood Disorders: No Family Medical History Significant Family History: No Pertinent Family Hx Family Medial History: DENIES Physical Exam Vital Signs Vital Sign - Last 12Hours 03/06/17 12:53 Temp 97.2 Pulse 54 Resp 30 B/P (MAP) 130/83 Pulse Ox 97 Capillary Refill : Less Than 3 Seconds Progress/Results/Core Measures Suspected Sepsis Recent Fever Within 48 Hours: No Infection Criteria Present: None New/Unexplained Altered Menta: No Sepsis Screen: No Definite Risk Sepsis Diagnosis: SIRS Temperature:97.2 Pulse: 54 Respiratory Rate: 30 Laboratory Tests 03/06/17 13:05: White Blood Count 4.5 Blood Pressure 130 /83 Mean: 99 Laboratory Tests 03/06/17 13:05: Creatinine 1.17, INR Comment 1.6H, Platelet Count 48L, Total Bilirubin 2.9H Results/Orders Lab Results Laboratory Tests Test 03/06/17 13:05 03/06/17 13:41 Range/Units White Blood Count 4.5 4.3-11.0 10^3/uL Red Blood Count 3.16 L 4.35-5.85 10^6/uL Hemoglobin 11.5 L 13.3-17.7 G/DL Hematocrit 34 L 40-54 % Mean Corpuscular Volume 106 H 80-99 FL Mean Corpuscular Hemoglobin 36 H 25-34 PG Mean Corpuscular Hemoglobin Concent 34 32-36 G/DL Red Cell Distribution Width 15.1 H 10.0-14.5 % Platelet Count 48 L 130-400 10^3/uL Mean Platelet Volume 12.3 H 7.4-10.4 FL Neutrophils (%) (Auto) 54 42-75 % Lymphocytes (%) (Auto) 36 12-44 % Monocytes (%) (Auto) 9 0-12 % Eosinophils (%) (Auto) 1 0-10 % Basophils (%) (Auto) 0 0-10 % Neutrophils # (Auto) 2.4 1.8-7.8 X 10^3 Lymphocytes # (Auto) 1.6 1.0-4.0 X 10^3 Monocytes # (Auto) 0.4 0.0-1.0 X 10^3 Eosinophils # (Auto) 0.0 0.0-0.3 10^3/uL Basophils # (Auto) 0.0 0.0-0.1 10^3/uL Prothrombin Time 19.5 H 12.2-14.7 SEC INR Comment 1.6 H 0.8-1.4 Activated Partial Thromboplast Time 40 H 24-35 SEC Sodium Level 143 135-145 MMOL/L Potassium Level 3.4 L 3.6-5.0 MMOL/L Chloride Level 108 H 98-107 MMOL/L Carbon Dioxide Level 27 21-32 MMOL/L Anion Gap 8 5-14 MMOL/L Blood Urea Nitrogen 17 7-18 MG/DL Creatinine 1.17 0.60-1.30 MG/DL Estimat Glomerular Filtration Rate > 60 BUN/Creatinine Ratio 15 Glucose Level 150 H 70-105 MG/DL Calcium Level 8.3 L 8.5-10.1 MG/DL Magnesium Level 1.4 L 1.8-2.4 MG/DL Total Bilirubin 2.9 H 0.1-1.0 MG/DL Aspartate Amino Transf (AST/SGOT) 80 H 5-34 U/L Alanine Aminotransferase (ALT/SGPT) 43 0-55 U/L Alkaline Phosphatase 196 H 40-136 U/L Ammonia 64 H 11-32 UMOL/L Troponin I < 0.30 <0.30 NG/ML Total Protein 6.2 L 6.4-8.2 GM/DL Albumin 2.5 L 3.2-4.5 GM/DL Amylase Level 104 25-125 U/L Lipase 40 8-78 U/L Serum Alcohol < 10 <10 MG/DL Urine Color YELLOW Urine Clarity CLEAR Urine pH 7 5-9 Urine Specific [place] 1.010 L 1.016-1.022 Urine Protein NEGATIVE NEGATIVE Urine Glucose (UA) NEGATIVE NEGATIVE Urine Ketones NEGATIVE NEGATIVE Urine Nitrite NEGATIVE NEGATIVE Urine Bilirubin NEGATIVE NEGATIVE Urine Urobilinogen NORMAL NORMAL MG/DL Urine Leukocyte Esterase NEGATIVE NEGATIVE Urine RBC (Auto) NEGATIVE NEGATIVE Urine RBC NONE /HPF Urine WBC NONE /HPF Urine Squamous Epithelial Cells 0-2 /HPF Urine Renal Epithelial Cells NONE /HPF Urine Crystals NONE /LPF Urine Bacteria NEGATIVE /HPF Urine Casts NONE /LPF Urine Mucus NEGATIVE /LPF Urine Culture Indicated NO Urine Opiates Screen NEGATIVE NEGATIVE Urine Oxycodone Screen NEGATIVE NEGATIVE Urine Methadone Screen NEGATIVE NEGATIVE Urine Propoxyphene Screen NEGATIVE NEGATIVE Urine Barbiturates Screen NEGATIVE NEGATIVE Ur Tricyclic Antidepressants Screen NEGATIVE NEGATIVE Urine Phencyclidine Screen NEGATIVE NEGATIVE Urine Amphetamines Screen NEGATIVE NEGATIVE Urine Methamphetamines Screen NEGATIVE NEGATIVE Urine Benzodiazepines Screen NEGATIVE NEGATIVE Urine Cocaine Screen NEGATIVE NEGATIVE Urine Cannabinoids Screen NEGATIVE NEGATIVE My Orders Orders - ASHLEY CARVER K DO Saline Lock/Iv-Start (03/06/17 13:07) Monitor-Rhythm Ecg Trace Only (03/06/17 13:07) Alcohol (03/06/17 13:07) Ammonia (03/06/17 13:07) Amylase (03/06/17 13:07) Cbc With Automated Diff (03/06/17 13:07) Comprehensive Metabolic Panel (03/06/17 13:07) Drug Screen Stat (Urine) (03/06/17 13:07) Lipase (03/06/17 13:07) Magnesium (03/06/17 13:07) Protime With Inr (03/06/17 13:07) Partial Thromboplastin Time (03/06/17 13:07) Troponin I (03/06/17 13:07) Ua Culture If Indicated (03/06/17 13:07) Chest 1 View, Ap/Pa Only (03/06/17 13:07) Lactulose Oral Solution (Enulose Oral So (03/06/17 13:45) Magnesium 1 Gm/100 Ml Ivpb (Magnesium Gregory (03/06/17 13:45) Magnesium Oxide Tablet (Mag Ox Tablet) (03/06/17 13:45) Vital Signs/I&O Vital Sign - Last 12Hours 03/06/17 12:53 Temp 97.2 Pulse 54 Resp 30 B/P (MAP) 130/83 Pulse Ox 97 Capillary Refill : Less Than 3 Seconds Blood Pressure Mean: 99 Departure Impression Impression: Primary Impression: Hepatic encephalopathy Additional Impressions: Thrombocytopenia Hepatitis C Hypomagnesemia Disposition: 01 HOME, SELF-CARE Condition: Stable Departure-Patient Inst. Referrals: SANG HAMMOND MD (PCP/Family) Primary Care Physician Patient Instructions: Hepatic Encephalopathy (DC), Hepatitis C (DC), Low Magnesium Level (DC) Add. Discharge Instructions: DOUBLE YOUR LACTULOSE DOSE EVERY DAY FOLLOW UP WITH YOUR DR NEXT WEEK FOR FURTHER CARE All discharge instructions reviewed with patient and/or family. Voiced understanding. ASHLEY CARVER DO Mar 06, 2017 14:20
[2017-03-06 15:30] VITALS: BP 100/65
== END 2017-03-06 15:30 | disposition home or self-care (01) ==
LOC: EDUNIT# 12:36 → ER 12:38
DX: K72.91 Hepatic failure, unspecified with coma (principal); D69.6 Thrombocytopenia, unspecified; B19.20 Unspecified viral hepatitis C without hepatic coma; E83.42 Hypomagnesemia; M10.9 Gout, unspecified; I10 Essential (primary) hypertension; Z87.11 Personal history of peptic ulcer disease; Z87.891 Personal history of nicotine dependence; Z98.890 Other specified postprocedural states
CPT/HCPCS: 36415; 71010; 80053; 80306; 80320; 81000; 82140; 82150; 83690; 83735; 84484; 85025; 85610; 85730; 93041

== ENCOUNTER 2017-09-17 17:40 | Emergency (ER) | payer MEDICARE, MEDICAID ==
[~2017-09-17] VITALS: Ht 172.7 cm; Wt 102.5 kg
[~2017-09-17 17:40] MED LIST changes: +METO50TA15 PO; -METO50TA2 PO
[2017-09-17] MEDS ORDERED: NS IV 1000 ML 1,000 ML IV ONE (18:16)
[2017-09-17 18:48] LABS: BASOPHILS % (AUTO) 0 % (0-10); EOSINOPHILS % (AUTO) 0 % (0-10); HEMATOCRIT 30 % (40-54); LYMPHOCYTES # (AUTO) 2.4 X 10^3 (1.0-4.0); LYMPHOCYTES % (AUTO) 30 % (12-44); MEAN CORPUSCULAR HEMOGLOBIN 32 PG (25-34); MEAN CORPUSCULAR HGB CONC 33 G/DL (32-36); MEAN CORPUSCULAR VOLUME 96 FL (80-99); MEAN PLATELET VOLUME 9.3 FL (7.4-10.4); MONOCYTES # (AUTO) 0.6 X 10^3 (0.0-1.0); MONOCYTES % (AUTO) 8 % (0-12); NEUTROPHILS # (AUTO) 4.9 X 10^3 (1.8-7.8); NEUTROPHILS % (AUTO) 62 % (42-75); PLATELET COUNT 135 10^3/uL (130-400); RED BLOOD COUNT 3.17 10^6/uL (4.35-5.85); RED CELL DISTRIBUTION WIDTH 18.2 % (10.0-14.5); WHITE BLOOD COUNT 7.9 10^3/uL (4.3-11.0)
[2017-09-17 18:51] LABS: PROTHROMBIN TIME PATIENT 13.6 SEC (12.2-14.7)
[2017-09-17 18:53] LABS: CLARITY,URINE CLEAR; COLOR,URINE YELLOW; GLUCOSE, URINE (UA) NEGATIVE (NEGATIVE); KETONES,URINE 1+ (NEGATIVE); LEUKOCYTE ESTERASE ,URINE NEGATIVE (NEGATIVE); NITRITE,URINE NEGATIVE (NEGATIVE); PH,URINE 5 (5-9); PROTEIN,URINE 2+ (NEGATIVE); UROBILINOGEN,URINE 1 MG/DL (NORMAL)
[2017-09-17 19:02] LABS: BACTERIA,URINE NEGATIVE /HPF; BILIRUBIN,URINE 1+ (NEGATIVE); WBC,URINE 0-2 /HPF
[2017-09-17 19:03] LABS: ALBUMIN 3.5 GM/DL (3.2-4.5); BILIRUBIN,TOTAL 0.4 MG/DL (0.1-1.0); CALCIUM 8.6 MG/DL (8.5-10.1); CREATININE SERUM 1.32 MG/DL (0.60-1.30); MAGNESIUM 1.6 MG/DL (1.8-2.4); POTASSIUM 4.6 MMOL/L (3.6-5.0); TOTAL PROTEIN 5.7 GM/DL (6.4-8.2)
[2017-09-17 19:08] LABS: ERYTHROCYTE SEDIMENTATION RATE 21 MM/HR (0-30)
[2017-09-17] MEDS ORDERED: fentaNYL INJECTION 100 MCG/2 ML AMP IVP STA (20:08)
--- NOTE | 2017-09-17 20:08 | Diagnostic Imaging Report ---
PROCEDURE: CT chest, abdomen, and pelvis without contrast. TECHNIQUE: Multiple contiguous axial images were obtained through the chest, abdomen, and pelvis without the use of intravenous contrast. INDICATION: Abdominal pain. Recent liver transplant for hep C. Comparison with 04/28/2016. FINDINGS: CT chest: The lungs are well-aerated. There are no infiltrates or masses. No pleural effusions or pericardial effusion. No mediastinal or hilar adenopathy of pathologic size. Aorta is atherosclerotic without aneurysm. Degenerative changes noted along thoracic spine. No blastic or lytic bony lesions. IMPRESSION: No acute changes within the chest. CT abdomen and pelvis: Liver transplant is noted with multiple surgical clips. No evidence of bile duct dilatation. No evidence of perihepatic fluid collections. There is no free fluid within the abdomen. Pancreas appears normal. The spleen is normal. The adrenal glands and kidneys appear normal without contrast. Stomach and small bowel are not distended. Colon shows normal stool and gas pattern. No evidence of diverticulitis. Bladder is decompressed. Prostate is not enlarged. There is noted anterior ventral hernia repair with mesh with no evidence of complications. IMPRESSION: 1. Findings are consistent with liver transplant. No acute abnormalities are demonstrated on noncontrasted study. These findings were discussed with Dr. Pacheco. Dictated by: Dictated on workstation # [id number]
[2017-09-17 22:10] VITALS: BP 167/107
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
== END 2017-09-17 22:11 ==
LOC: EDUNIT# 17:40 → ER 17:41
DX: R10.11 Right upper quadrant pain (principal); N28.9 Disorder of kidney and ureter, unspecified; E86.0 Dehydration; I10 Essential (primary) hypertension; B19.20 Unspecified viral hepatitis C without hepatic coma; M10.9 Gout, unspecified; E11.9 Type 2 diabetes mellitus without complications; Z94.4 Liver transplant status; Z87.891 Personal history of nicotine dependence; Z87.19 Personal history of other diseases of the digestive system; Z90.89 Acquired absence of other organs
CPT/HCPCS: 36415; 71250; 74176; 80053; 81000; 82150; 83605; 83690; 83735; 85025; 85610; 85652; 85730; 86141; 96361; 96374

== ENCOUNTER → 2017-10-12 | Outpatient (CLI) | payer MEDICARE, MEDICAID ==
[~2017-10-12] MED LIST changes: -KETO120S11 TP; +KETO120S2 TP; -SPIR100T2 PO; +SPIR100T4 PO; -SPIR50TA2 PO; +SPIR50TA4 PO
--- NOTE | 2017-10-12 09:42 | Diagnostic Imaging Report ---
PROCEDURE: US Abdomen, limited. TECHNIQUE: Multiple realtime grayscale images were obtained over the abdomen in various projections. INDICATION: Right flank pain and bulge. FINDINGS: Sonographic interrogation of the area of right flank pain was performed. No sonographic abnormality is seen. No mass is identified. No definite abdominal wall defect is seen. No fluid collection is identified. IMPRESSION: No sonographic abnormality is detected. Dictated by: Dictated on workstation # [id number]
== END ==
LOC: RAD 08:13
PROVIDERS: ATTEND Nurse Practitioner Family
DX: K43.9 Ventral hernia without obstruction or gangrene (principal)
CPT/HCPCS: 76705